=== PATIENT | female | born 1945 | race Caucasian/White ===

== ENCOUNTER → 2018-01-11 16:31 | Outpatient (CLI) | payer MEDICARE, SELFPAY ==
--- NOTE | 2018-01-11 16:37 | RAD_ITS ---
STUDY: X-RAY CHEST REASON FOR EXAM: Female, 72 years old. Cough, dyspnea. TECHNIQUE: PA and lateral views of the chest. COMPARISON: None. FINDINGS: The lungs are clear and expanded. There is no demonstrated pleural abnormality. Normal size heart. Normal mediastinum and fatou. Normal visualized pulmonary arteries. Normal visualized aortic arch and descending thoracic aorta. Normal visualized thoracic spine. Metal disc prostheses and fixation hardware noted along the anterior aspect of the visualized lower cervical spine. Normal visualized ribs, clavicles, and shoulders. There is a moderate size retrocardiac hiatal hernia with a gas fluid level. RAD/Chest PA and Lateral IMPRESSION: 1. No acute cardiopulmonary disease. 2. Moderate size hiatal hernia. 3. Prior lower cervical disc replacements and anterior spinal fusion with metal hardware. Electronically Signed: Emmanuel Betancourt MD at 13:22 EST , Service support ,
== END ==
PROVIDERS: Family Provider Internal Medicine; PCP Internal Medicine; Referring Provider Otolaryngology; Visit Provider Otolaryngology
DX: R05 Cough (principal); R06.09 Other forms of dyspnea
CPT/HCPCS: 71046

== ENCOUNTER → 2019-01-20 09:11 | Outpatient (CLI) | payer MEDICARE, SELFPAY ==
[2019-01-20 08:32] VITALS: BMI 24.7
--- NOTE | 2019-01-20 09:20 | RAD_ITS ---
STUDY: X-RAY CHEST REASON FOR EXAM: Female, 73 years old. Shortness of breath TECHNIQUE: PA and lateral views of the chest. COMPARISON: 01/11/2018 FINDINGS: Fusion hardware of the lower cervical spine stable. The lungs are clear and expanded. There is no demonstrated pleural abnormality. Normal size heart. Normal mediastinum and fatou. Normal visualized pulmonary arteries. Normal visualized aortic arch and descending thoracic aorta. There is demineralization of the osseous structures. Normal visualized ribs, clavicles, and shoulders. Hiatal hernia again noted. RAD/Chest PA and Lateral IMPRESSION: No acute cardiopulmonary process. Electronically Signed: Jack Castro MD (Brooks) at 14:29 EST , Service support ,
[2019-01-20 09:55] LABS: Absolute Lymphocyte Count 2.01 X10^3/uL (0.83-4.51); Absolute Neutrophil Count 4.1 X10^3/uL (2.0-7.7); Basophil# 0.09 X10^3/uL; Basophil% 1.3 % (0-1); Eosinophil# 0.23 X10^3/uL; Eosinophils% 3.2 % (0-5); Hemoglobin 13.7 g/dL (12.0-15.0); Lymphocyte # 2.01 X10^3/ul (4.0); Lymphocyte % 28.2 % (19-41); Mean Corp Hgb Conc 33.4 g/dL (32-36); Mean Corpuscular Hgb 29.5 pg (27.0-32.0); Mean Corpuscular Volume 88.4 fL (81-99); Mean Platelet Vol. 10.7 fl (6.2-12.0); Monocyte# 0.71 X10^3/uL; NRBC Flagged by Analyzer 0 % (0-5); Neutrophil # 4.08 X10^3/uL (2.7-7.7); Neutrophil % 57.2 % (47-70); Platelet Count 299 K/mm3 (150-450); RBC Distribution Width CV 13.6 % (11.6-14.6); RBC Distribution Width SD 43.7 fl (35.1-43.9); Red Blood Count 4.64 M/mm3 (4.2-5.4); White Blood Count 7.1 K/mm3 (4.4-11.0)
[2019-01-20 10:20] LABS: BNP,B-Type NATRIURETIC PEPTIDE 65.1 pg/mL (0-100)
[2019-01-20 10:37] LABS: Anion Gap 6 (5-15); BUN 18 mg/dL (7-18); BUN/Creat Ratio 19.4 RATIO (10-20); Calcium,Total 9.1 mg/dL (8.5-10.1); Chloride 107 mmol/L (98-107); Creatinine, Serum 0.93 mg/dL (0.55-1.02); EST Glomerular Filtration Rate 64 mL/min (>60); Est Glom Filt Rate - Afr Amer 77 mL/min (>60); Glucose 93 mg/dL (74-106); Potassium 3.9 mmol/L (3.5-5.1); Sodium Level 141 mmol/L (136-145); Thyroid Stim Hormone (TSH) 1.75 uIU/mL (0.358-3.74)
== END ==
PROVIDERS: Family Provider Internal Medicine; PCP Internal Medicine; Referring Provider Physician Assistant Medical; Visit Provider Physician Assistant Medical
DX: R53.83 Other fatigue (principal); R06.02 Shortness of breath; I44.7 Left bundle-branch block, unspecified
CPT/HCPCS: 36415; 71046; 80048; 83880; 84443; 85025

== ENCOUNTER → 2019-02-15 06:46 | Outpatient (CLI) | payer MEDICARE, SELFPAY ==
[2019-01-20 08:32] VITALS: BMI 24.7
--- NOTE | 2019-02-15 06:47 | ECHOCS_ITS ---
Reason For Study: Dyspnea/SOB Procedure This was a 2D Doppler, Color Flow transthoracic echocardiogram. The study was technically difficult. Contrast injection was performed. Exam performed in department. Left Ventricle Normal LV size. Mid cavitary false tendon noted. Moderate segmental systolic dysfunction (see wall motion). The estimated ejection fraction is 40 %. Diastolic function is indeterminate. Infero-Basal: Hypokinetic. Basal inferoseptal: Hypokinetic. Basal anteroseptal: Hypokinetic. Mid-Anterior : Hypokinetic. Mid-Lateral : Hypokinetic. Mid-Posterior: Hypokinetic. Mid-Inferior: Hypokinetic. Mid- inferoseptal : Hypokinetic. Mid-anteroseptal : Hypokinetic. [place] : Hypokinetic. Right Ventricle Normal RV size. Normal systolic function. Atria The left atrium is mildly enlarged. Normal right atrium. No doppler evidence for ASD. Bubble contrast study negative for right to left interatrial shunt. Mitral Valve There is no mitral annular calcification. Normal mitral valve. Trivial mitral valve insufficiency. Tricuspid Valve Normal tricuspid valve. Trivial tricuspid valve insufficiency. Right ventricular systolic pressure estimated to be 28 mmHg. Aortic Valve Trisinus/trileaflet aortic valve. Normal aortic valve. Trivial aortic valve insufficiency. Pulmonic Valve The pulmonic valve is not well visualized. Trivial pulmonic valve insufficiency. Great Vessels Normal sized aortic root. Pericardium/Pleural No pericardial effusion. Medication Diluted definity 5ml given slow IV push to enhance endocardial definition. MMode/2D Measurements & Calculations LVIDd: 4.9 cm IVSd: 1.1 cm Ao root diam: 2.9 cm LVIDs: 4.0 cm LVPWd: 0.81 cm RVDd: 2.9 cm FS: 19.9 % LAV(MOD-bp): 38.7 ml LVAd ap4: 32.3 cm2 SV(MOD-sp4): 47.2 ml LAV(MOD-bp) Indexed: 21.7 ml/m2 EDV(MOD-sp4): 109.1 ml LAV(MOD-sp2): 48.6 ml EDV(sp4-el): 113.2 ml LAV(MOD-sp4): 25.5 ml LVAs ap4: 22.4 cm2 ESV(MOD-sp4): 61.9 ml ESV(sp4-el): 64.5 ml EF(MOD-sp4): 43.3 % EF(sp4-el): 43.0 % SV(sp4-el): 48.7 ml LA A4 area: 11.1 cm2 LA dimension(2D): 3.9 cm RA A4 area: 10.6 cm2 Doppler Measurements & Calculations MV E max jeramie: 53.4 cm/sec Lat Peak E' Jeramie: 3.7 cm/sec Med Peak E' Jer[place]ie: 2.8 cm/sec MV A max jeramie: 104.1 cm/sec E/E' lat: 14.3 E/E' med: 19.2 MV E/A: 0.51 Ao V2 max: 129.4 cm/sec LV V1 max: 85.3 cm/sec PA V2 max: 105.9 cm/sec Ao max P.7 mmHg LV V1 max P.9 mmHg Ao V2 mean: 91.0 cm/sec Ao mean P.7 mmHg Ao V2 VTI: 24.3 cm PI end-d jeramie: 80.9 cm/sec TR max jeramie: 251.8 cm/sec TR max P.4 mmHg Interpretation Summary The study was technically difficult. Contrast injection was performed. Moderate segmental systolic dysfunction (see wall motion). The estimated ejection fraction is 40 %. Mid cavitary false tendon noted. The left atrium is mildly enlarged. Trivial mitral valve insufficiency. Trivial tricuspid valve insufficiency. Trivial aortic valve insufficiency. Trivial pulmonic valve insufficiency. Right ventricular systolic pressure estimated to be 28 mmHg. Diastolic function is indeterminate. Bubble contrast study negative for right to left interatrial shunt. Ordering Physician: Deidra Cedillo Referring Physician: Jessica Forrest Performed By: Sharee Garibay RDCS, RVT
--- NOTE | 2019-02-15 09:26 | STRESSREP ---
Stress Test Report Date: ? Procedure: Pharmacologic stress nuclear imaging study Indications: Shortness of breath/dyspnea; abnormal ECG-left bundle branch block Consent: Per the patient Procedure: The patient underwent pharmacologic (Regadenoson) evaluation with a peak heart rate of 94 beats per minute (63 %predicted maximal heart rate) and a peak blood pressure of 138/80 mmHg. The baseline ECG demonstrated normal sinus rhythm; left bundle branch block. The peak pharmacologic ECG demonstrated no obvious ECG changes. [There were no cardiac dysrhythmias pretest, during pharmacologic infusion, or recovery]. [There was no complaint of chest discomfort during pharmacologic infusion or recovery]. The examination was discontinued secondary to completion of protocol. Impression: 1. Pharmacologic (Regadenoson) evaluation 2. Peak pharmacologic ECG with continued left bundle branch block with no obvious ECG changes. 3. [There were no cardiac dysrhythmias pretest, during pharmacologic infusion, or recovery]. 4. Nuclear images pending Myocardial perfusion imaging study: Technique: The patient was injected with 10.0 millicuries of technetium 99m Cardiolite and subsequently rest SPECT Cardiolite nuclear imaging was obtained in the horizontal long, vertical long, and short axis views. The patient underwent pharmacologic (Regadenoson) evaluation with a peak heart rate of 94 beats per minute (63 % percent predicted maximal heart rate) and a peak blood pressure of 138/80 mmHg. The patient was injected with 35.0 millicuries of technetium 99m Cardiolite and subsequently stress SPECT Cardiolite nuclear imaging was obtained in the horizontal long, vertical long, and short axis views. A gated Cardiolite study at peak stress was not obtained. Interpretation: Rest and stress SPECT Cardiolite nuclear imaging status post realignment and normalization demonstrate an area of diminished tracer uptake in portions of the distal anterior, anteroapical, distal anteroseptal, and septal apical segments which appear to be more prominent following stress as opposed to rest. A gated Cardiolite study at peak stress was not obtained. Impression: 1. Rest and stress SPECT Cardiolite nuclear imaging demonstrate myocardial perfusion changes potentially compatible with an area of stress-induced myocardial ischemia involving portions of the distal anterior, anteroapical, distal anteroseptal, and septal apical segments, however, an element of contribution from the patient's underlying IVCD/left bundle branch block pattern cannot be excluded. 2. A gated Cardiolite study at peak stress was not obtained. This note was generated with [employer] software. It may contain incorrect words, spelling, and punctuation that were not noted in checking the note before signing.
== END ==
PROVIDERS: Family Provider Internal Medicine; PCP Internal Medicine; Referring Provider Physician Assistant Medical; Visit Provider Physician Assistant Medical
DX: R06.02 Shortness of breath (principal); R53.83 Other fatigue; I44.7 Left bundle-branch block, unspecified
CPT/HCPCS: 78452; 93017; 93306; A9500; Q9957; A4216; C8929; J2785

== ENCOUNTER 2019-02-21 11:16 | Inpatient (IN) | payer MEDICARE, SELFPAY ==
[2019-01-20 08:32] VITALS: BMI 24.7
[2019-02-21] VITALS (12 sets, daily range): BP systolic 131–171; BP diastolic 63–89; PULSE 73–95; RESP 10–16; TEMP 36.7–36.9; O2SAT 95–98; BMI 24.5; BMI 24.0; BMI 24.1
--- NOTE | 2019-02-21 11:21 | RAD_ITS ---
STUDY: X-RAY CHEST REASON FOR EXAM: Female, 73 years old. discomfort in left chest that radiates to her neck. hx of BBB TECHNIQUE: Single AP portable view of the chest. COMPARISON: 01/20/2019 FINDINGS: The lungs are clear and expanded. There is no demonstrated pleural abnormality. Normal size heart. Large hiatal hernia. Normal visualized pulmonary arteries. Normal visualized aortic arch and descending thoracic aorta. Normal visualized thoracic spine. Normal visualized ribs, clavicles, and shoulders. There is no demonstrated abnormality of the visualized soft tissue structures of the upper abdomen. RAD/Chest 1 View (Portable) IMPRESSION: No active disease. Electronically Signed: Anthony Grajeda MD at 12:04 EST Tel , Service support ,
--- NOTE | 2019-02-21 11:21 | EKG12_ITS ---
Test Reason : Blood Pressure : / mmHG Vent. Rate : 070 BPM Atrial Rate : 070 BPM P-R Int : 152 ms QRS Dur : 156 ms QT Int : 448 ms P-R-T Axes : 059 -36 108 degrees QTc Int : 483 ms Normal sinus rhythm Left axis deviation Left bundle branch block Abnormal ECG No previous ECGs available Confirmed by MERLENE BROWN, BENNY ([id number]), movie editor TERESO MISHRA ([id number]) on 02/24/2019 10:55:23 AM Referred By: Maxwell Montes Confirmed By:RENEE BLUNT MD
[2019-02-21 11:38] LABS: Absolute Lymphocyte Count 1.56 X10^3/uL (0.83-4.51); Absolute Neutrophil Count 3.9 X10^3/uL (2.0-7.7); Basophil# 0.06 X10^3/uL; Eosinophil# 0.09 X10^3/uL; Eosinophils% 1.5 % (0-5); Hematocrit 40.9 % (37-47); Hemoglobin 13.6 g/dL (12.0-15.0); Lymphocyte # 1.56 X10^3/ul (4.0); Lymphocyte % 25.7 % (19-41); Mean Corp Hgb Conc 33.3 g/dL (32-36); Mean Corpuscular Hgb 29.4 pg (27.0-32.0); Mean Corpuscular Volume 88.5 fL (81-99); Mean Platelet Vol. 10.7 fl (6.2-12.0); Monocyte# 0.48 X10^3/uL; Monocyte% 7.9 % (0-10); NRBC Flagged by Analyzer 0 % (0-5); Neutrophil # 3.85 X10^3/uL (2.7-7.7); Neutrophil % 63.6 % (47-70); Platelet Count 260 K/mm3 (150-450); RBC Distribution Width CV 13.3 % (11.6-14.6); RBC Distribution Width SD 43.3 fl (35.1-43.9); Red Blood Count 4.62 M/mm3 (4.2-5.4); White Blood Count 6.1 K/mm3 (4.4-11.0)
--- NOTE | 2019-02-21 11:39 | ED.DCSUM_ITS ---
- ER Visit Summary Date of Service: 02/21/19 Chief Complaint: [Chest pain] History of Present Illness: The patient is a 73 F [presents the emergency department chest discomfort that she woke up with this morning around 7:30 AM. Patient describes a tightness across her shoulders and her chest. Patient feels short of breath with and got sweaty with it. Patient states that she has had similar discomfort off and on for several weeks and saw Dr. Gerald Colon as an outpatient and had a stress test that was equivocal and possibly abnormal. Patient is scheduled to have a heart catheterization March 10. Patient states that her symptoms are typically caused by activity and exertion. Patient has history of left bundle branch block. Patient currently rates her pain a 2 out of 10. In reviewing patient's stress test from 1217 showed that patient demonstrated myocardial perfusion changes potentially compatible with an area of stress-induced myocardial ischemia involving portions of the distal anterior, anterior apical and distal anterior septal and septal apical segments however an element of contribution from the patient's underlying IVCD/left bundle branch block pattern cannot be excluded.] Physical Examination: [HEENT-PERRLA, EOMI. Cranial nerves II through XII lee ann ssly intact. TMs clear. Mucous membranes moist. No adenopathy. Cardiovascular-regular rate and rhythm without murmur or ectopy Lungs-clear to auscultation, chest wall stable without crepitus or subcu emphysema Abdomen-normoactive bowel sounds, soft, nontender, no rebound or rigidity, no peritoneal signs. Extremities-intact ?4, normal range of motion, normal pulses, atraumatic] Test Results: [EKG obtained arrival shows sinus rhythm with ventricular rate of 89 bpm with a left bundle branch block. CBC with differential is normal. Chemistries normal. Troponin was less than 0.15. INR was 1.0. Chest x-ray showed nothing acute.] Emergency Department Course and Treatment: [Patient was given aspirin in the emergency department. I ordered sublingual nitroglycerin for her.] Treatment Plan: [Admit for further work-up and evaluation of her chest pain] Disposition: [Admit] Impression: [Chest pain-rule out acute coronary syndrome] This note was generated with [employer] software. It may contain incorrect words, spelling, and punctuation that were not noted in review of the chart prior to signing ED Disposition - Plan for ED Patient: Referrals: Jessica Forrest MD [Primary Care Provider] -
[2019-02-21 11:41] LABS: Prothrombin Time (Protime)PT. 12.5 SECONDS (11.7-14.9)
[2019-02-21 11:48] LABS: Anion Gap 5 (5-15); BUN 14 mg/dL (7-18); BUN/Creat Ratio 14.1 RATIO (10-20); Calcium,Total 9.3 mg/dL (8.5-10.1); Chloride 109 mmol/L (98-107); Creatinine, Serum 0.99 mg/dL (0.55-1.02); EST Glomerular Filtration Rate 59 mL/min (>60); Est Glom Filt Rate - Afr Amer 71 mL/min (>60); Estimated Creatinine Clearance 48.79 ml/min; Glucose 121 mg/dL (74-106); Sodium Level 142 mmol/L (136-145)
[2019-02-21] MEDS: Aspirin 81 MG TAB.CHEW 324 MG PO (12:09)
[2019-02-21] MEDS: 0.9% Normal Saline 1,000 ML 150 ML IV (12:10)
--- NOTE | 2019-02-21 12:46 | NURSING ---
DR DYE FOR DR HUNG
[2019-02-21] MEDS: Nitroglycerin SL (ED/IMG/CATH) 0.4 MG TABLET SUBLINGUAL (12:47)
--- NOTE | 2019-02-21 16:52 | HP.PCM_ITS ---
History of Present Illness Date of Admission: 02/21/19 Chief Complaint: Chest pain The patient is a 73 year old F with a PMH as below who presents to the hospital with chest pressure on her left chest and into her left shoulder that started around 730 this morning. She did become a little short of breath and had some diaphoresis with this. It was the same pressure that she had been having for several weeks. This caused her to go see her gaming cage cashier in the office and she had an echo as well as a stress test done last week. The echo demonstrated a moderate segmental systolic dysfunction with an EF of 40%, and the stress test demonstrated changes that could be compatible with an area of stress-induced myocardial ischemia in the distal anterior, anterior apical, and distal anterior septal as well as septal apical segments. In the ER an EKG was done which showed her chronic left bundle branch block and a normal troponin. Past Medical History Past Medical History (Chronic Problems): Chronic Problems (Last Updated 02/16/19 @ 17:09 by Deidra Patel) LBBB (left bundle branch block) (Chronic) Medical History: Medical History (Last Updated 02/16/19 @ 17:09 by Deidra Patel) Abnormal stress test (Acute) R94.39 LBBB (left bundle branch block) (Chronic) I44.7 Depression F32.9 Diverticulosis K57.90 DANUTA (obstructive sleep apnea) G47.33 Basal cell carcinoma C44.91 removal of basil cell carcinoma on head Allergies codeine Allergy (Intermediate, Verified 02/21/19 11:20) Itching, Hives atropine [From Urised] Allergy (Unknown, Verified 02/21/19 11:20) Unknown benzoic acid [From Urised] Allergy (Unknown, Verified 02/21/19 11:20) Unknown diclofenac [From Voltaren] Allergy (Unknown, Verified 02/21/19 11:20) Unknown hyoscyamine [From Urised] Allergy (Unknown, Verified 02/21/19 11:20) Unknown methenamine [From Urised] Allergy (Unknown, Verified 02/21/19 11:20) Unknown methylene blue [From Urised] Allergy (Unknown, Verified 02/21/19 11:20) Unknown salicylates [From Urised] Allergy (Unknown, Verified 02/21/19 11:20) Unknown sulfamethoxazole [From Septra] Allergy (Unknown, Verified 02/21/19 11:20) Unknown trimethoprim [From Septra] Allergy (Unknown, Verified 02/21/19 11:20) Unknown amoxicillin Adverse Reaction (Unknown, Verified 02/21/19 11:20) Unknown cephalexin [From Keflex] Adverse Reaction (Unknown, Verified 02/21/19 11:20) Unknown Penicillins Adverse Reaction (Unknown, Verified 02/21/19 11:20) Unknown Home Medications: Ambulatory Orders Medication Instructions Recorded albuterol sulfate 90 mcg/actuation 2 puff INHALATION Q4H PRN g 04/14/17 aerosol inhaler aspirin 81 mg tablet,delayed 81 mg PO QDAY tab 04/14/17 release cholecalciferol (vitamin D3) 50 2,000 unit PO QDAY cap 04/14/17 mcg (2,000 unit) capsule estradiol 1 g VAGINAL QWEEK g 04/14/17 fluoxetine 20 mg capsule 20 mg PO QDAY 04/14/17 benzonatate 100 mg capsule 100 mg PO QDAY PRN cap 04/15/17 fluticasone propionate 50 1 spray INTRANASAL QDAY PRN 04/15/17 mcg/actuation nasal spray,suspension levothyroxine 50 mcg tablet 50 mcg PO QDAY tab 04/15/17 meloxicam 15 mg tablet 15 mg PO QDAY PRN 04/15/17 omeprazole 20 mg capsule,delayed 20 mg PO QDAY 04/15/17 release loratadine 10 mg tablet 10 mg PO DAILY PRN 04/18/18 nabumetone 500 mg tablet 500 mg PO BID PRN 04/18/18 Carvedilol 3.125 mg PO BID 02/21/19 Surgical History: Surgical History (Last Reviewed 04/18/18 @ 10:28 by Deidra Patel) H/O arthroscopic knee surgery Z98.890 Rt History of carpal tunnel surgery Z92.89 History of cholecystectomy Z98.890, Z90.49 History of nasal surgery Z98.890 History of neck surgery Z98.890 History of oophorectomy History of total hysterectomy Z98.890, Z90.710 Hx of cataract surgery Z98.49 Smoking Status: Former smoker Tobacco Use: Cigarettes Alcohol: None Drugs: None Review of Systems Constitutional: Denies: Chills, Fever, Weight Change HEENT: Denies: Head Aches, Sinus Congestion, Sinus Drainage Cardiovascular: Reports: Chest Pressure, Chest Tightness. Denies: Chest Pain, Palpitations Respiratory: Denies: Cough, Shortness of breath at rest, Sputum production Gastrointestinal: Denies: Abdominal Pain, Nausea, Vomiting Genitourinary: Denies: Dysuria Musculoskeletal: Denies: Joint Pain, Joint Tenderness Skin: Denies: Rash, Wounds Neurological: Denies: Numbness, Tingling, Focal weakness Psychiatric: Denies: Anxiety, Depression Hematologic/ Lymphatic: Denies: Easy Bruising, Easy Bleeding VTE Information - Inpt Only VTE Present on Admission: No - Physical Exam Vitals/I&O's: Vital Signs Temp Pulse Resp BP Pulse Ox 98.1 F 73 16 171/70 H 97 02/21/19 13:23 02/21/19 14:57 02/21/19 13:23 02/21/19 13:23 02/21/19 13:23 Oxygen Flow Rate (L/min) 2 Oxygen Delivery Method Room Air Weight: 149 lb 4.047 oz Body Mass Index (BMI) 24.0 Intake and Output for Last 24 Hours 02/19/19 02/20/19 02/21/19 23:59 23:59 23:59 Intake Total 610 / 610 Balance 610 / 610 General: Alert, Oriented x3, Cooperative, No apparent distress HEENT: Atraumatic, PERRLA, EOMI, Normocephalic Oral: Moist Mucosa Neck: Supple, No JVD Lungs: Clear to auscultation, Normal air movement, No rhonchi, No wheeze, No rales Cardiovascular: Regular rate, Regular Rhythm, Normal S1, Normal S2, No murmurs Abdomen: Soft, Non Tender, Non-Distended, No Hepato-splenomegaly Extremities: No edema, Capillary Refill Less than 3 Seconds Skin: No rashes, No breakdown Neurological: Neuro grossly intact, Sensory exam intact to light touch and pain Psych/Mental Status: Normal Affect, Appropriate Laboratory Results 02/21/19 11:24: WBC 6.1, RBC 4.62, Hgb 13.6, Hct 40.9, MCV 88.5, MCH 29.4, MCHC 33.3, RDW Std Deviation 43.3, RDW Coeff of Susan 13.3, Plt Count 260, MPV 10.7, Immature Gran % (Auto) 0.300, Neut % (Auto) 63.6, Lymph % (Auto) 25.7, [place] % (Auto) 7.9, Eos % (Auto) 1.5, Baso % (Auto) 1.0, Absolute Neuts (auto) 3.9, Absolute Lymphs (auto) 1.56, Nucleated RBC % 0 02/21/19 11:24: PT 12.5, INR 1.0 02/21/19 11:24: Sodium 142, Potassium 4.0, Chloride 109 H, Carbon Dioxide 28.0, Anion Gap 5, BUN 14, Creatinine 0.99, Estim Creat Clear Calc 48.79, Est GFR (MDRD) Af Amer 71, Est GFR (MDRD) Non-Af 59 L, BUN/Creatinine Ratio 14.1, G lucose 121 H, Calcium 9.3, Troponin I < 0.015 02/21/19 14:40: Troponin I < 0.015 Current Medications Enoxaparin Sodium (Lovenox) 40 mg SC DAILY PETRA Nitroglycerin (Nitrostat) 0.4 mg SUBLINGUAL Q5M PRN PRN Reason: CARDIAC/CHEST PAIN Sodium Chloride () 10 - 40 ml IV UD PRN PRN Reason: SALINE FLUSH Assessment/Plan All Active Problems (Last Updated 02/16/19 @ 17:09 by Deidra Patel) Abnormal stress test (Acute) Fatigue (Acute) SOB (shortness of breath) (Acute) 1. Chest pain -She already has a cardiac cath scheduled for March 10 however because of the recurrence of her chest pain and her abnormal stress test as well as her abnormal echo last week, will keep here to have the cath done as an inpatient -Obtain serial troponins -Consult cardiology -Continue with her aspirin, Coreg 2. Hypothyroidism -Stable -Continue with home Synthroid 3. GERD -Stable -Continue with PPI 4. Anxiety/depression -Stable -Continue with home Prozac DVT: Lovenox Code Visit Inpatient E&M: 65321 Init Hosp L2
[2019-02-21] MEDS: Carvedilol 3.125 MG TABLET PO (21:36)
[2019-02-22] VITALS (9 sets, daily range): BP systolic 115–145; BP diastolic 61–71; PULSE 61–75; RESP 16–18; TEMP 36.7–37; O2SAT 95–98
[2019-02-22] MEDS: Loratadine 10 MG Tablet PO (03:46)
[2019-02-22] MEDS: Levothyroxine 50 MCG Tablet PO (05:28)
[2019-02-22 06:41] LABS: Absolute Lymphocyte Count 1.75 X10^3/uL (0.83-4.51); Absolute Neutrophil Count 3.6 X10^3/uL (2.0-7.7); Basophil# 0.08 X10^3/uL; Basophil% 1.3 % (0-1); Eosinophil# 0.15 X10^3/uL; Eosinophils% 2.5 % (0-5); Hemoglobin 13.3 g/dL (12.0-15.0); Lymphocyte # 1.75 X10^3/ul (4.0); Lymphocyte % 28.6 % (19-41); Mean Corp Hgb Conc 33.3 g/dL (32-36); Mean Corpuscular Hgb 29.6 pg (27.0-32.0); Mean Corpuscular Volume 89.1 fL (81-99); Mean Platelet Vol. 11.1 fl (6.2-12.0); Monocyte# 0.53 X10^3/uL; Monocyte% 8.7 % (0-10); NRBC Flagged by Analyzer 0 % (0-5); Neutrophil % 58.7 % (47-70); Platelet Count 243 K/mm3 (150-450); RBC Distribution Width CV 13.6 % (11.6-14.6); RBC Distribution Width SD 44.3 fl (35.1-43.9); Red Blood Count 4.49 M/mm3 (4.2-5.4); White Blood Count 6.1 K/mm3 (4.4-11.0)
[2019-02-22 07:03] LABS: Anion Gap 4 (5-15); BUN 13 mg/dL (7-18); BUN/Creat Ratio 14.9 RATIO (10-20); Calcium,Total 9.2 mg/dL (8.5-10.1); Chloride 110 mmol/L (98-107); Creatinine, Serum 0.87 mg/dL (0.55-1.02); EST Glomerular Filtration Rate 68 mL/min (>60); Est Glom Filt Rate - Afr Amer 82 mL/min (>60); Estimated Creatinine Clearance 55.52 ml/min; Glucose 88 mg/dL (74-106); Sodium Level 142 mmol/L (136-145)
--- NOTE | 2019-02-22 07:20 | CON.PCM_ITS ---
Reason for Consult Date of Consultation: 02/22/19 Reason for Consultation: Chest pain and abnormal stress test, abnormal echo History of Present Illness: The patient is a 73 year old F with a PMH as below who presents to the hospital with chest pressure on her left chest and into her left shoulder that started around 730 this morning. She did become a little short of breath and had some diaphoresis with this. It was the same pressure that she had been having for several weeks. This caused her to go see her configuration management specialist in the office and she had an echo as well as a stress test done last week. The echo demonstrated a moderate segmental systolic dysfunction with an EF of 40%, and the stress test demonstrated changes that could be compatible with an area of stress-induced myocardial ischemia in the distal anterior, anterior apical, and distal anterior septal as well as septal apical segments. In the ER an EKG was done which showed her chronic left bundle branch block and a normal troponin. Patient was scheduled for cardiac catheterization on March 10. She does not have any chest pain at this time. Troponin x3 has been negative. Review of systems: All systems reviewed. All else is negative except that in the HPI. ] Past Medical History Allergies/Adverse Reactions: Allergies codeine Allergy (Intermediate, Verified 02/21/19 11:20) Itching, Hives atropine [From Urised] Allergy (Unknown, Verified 02/21/19 11:20) Unknown benzoic acid [From Urised] Allergy (Unknown, Verified 02/21/19 11:20) Unknown diclofenac [From Voltaren] Allergy (Unknown, Verified 02/21/19 11:20) Unknown hyoscyamine [From Urised] Allergy (Unknown, Verified 02/21/19 11:20) Unknown methenamine [From Urised] Allergy (Unknown, Verified 02/21/19 11:20) Unknown methylene blue [From Urised] Allergy (Unknown, Verified 02/21/19 11:20) Unknown salicylates [From Urised] Allergy (Unknown, Verified 02/21/19 11:20) Unknown sulfamethoxazole [From Septra] Allergy (Unknown, Verified 02/21/19 11:20) Unknown trimethoprim [From Septra] Allergy (Unknown, Verified 02/21/19 11:20) Unknown amoxicillin Adverse Reaction (Unknown, Verified 02/21/19 11:20) Unknown cephalexin [From Keflex] Adverse Reaction (Unknown, Verified 02/21/19 11:20) Unknown Penicillins Adverse Reaction (Unknown, Verified 02/21/19 11:20) Unknown Home Medications: Ambulatory Orders Medication Instructions Recorded albuterol sulfate 90 mcg/actuation 2 puff INHALATION Q4H PRN g 04/14/17 aerosol inhaler aspirin 81 mg tablet,delayed 81 mg PO QDAY tab 04/14/17 release cholecalciferol (vitamin D3) 50 2,000 unit PO QDAY cap 04/14/17 mcg (2,000 unit) capsule estradiol 1 g VAGINAL QWEEK g 04/14/17 fluoxetine 20 mg capsule 20 mg PO QDAY 04/14/17 benzonatate 100 mg capsule 100 mg PO QDAY PRN cap 04/15/17 fluticasone propionate 50 1 spray INTRANASAL QDAY PRN 04/15/17 mcg/actuation nasal spray,suspension levothyroxine 50 mcg tablet 50 mcg PO QDAY tab 04/15/17 meloxicam 15 mg tablet 15 mg PO QDAY PRN 04/15/17 omeprazole 20 mg capsule,delayed 20 mg PO QDAY 04/15/17 release loratadine 10 mg tablet 10 mg PO DAILY PRN 04/18/18 nabumetone 500 mg tablet 500 mg PO BID PRN 04/18/18 Carvedilol 3.125 mg PO BID 02/21/19 Past Medical History (Chronic Problems): Chronic Problems (Last Updated 02/16/19 @ 17:09 by Deidra Patel) LBBB (left bundle branch block) (Chronic) Smoking Status: Former smoker Tobacco Use: Cigarettes Alcohol: None Drugs: None Objective: Vital Signs Temp Pulse Resp BP Pulse Ox 98.5 F 71 18 145/71 H 95 02/22/19 03:30 02/22/19 07:00 02/22/19 03:30 02/22/19 03:30 02/22/19 03:30 Oxygen Flow Rate (L/min) 2 Oxygen Delivery Method Room Air Weight: 149 lb 4.047 oz Body Mass Index (BMI) 24.0 Intake and Output for Last 24 Hours 02/20/19 02/21/19 02/22/19 23:59 23:59 23:59 Intake Total 1070 / 1070 100 / 100 Balance 1070 / 1070 100 / 100 General: Awake, Alert, Oriented x 3 HEENT: Atraumatic Oral: Moist Mucosa Neck: Supple Lungs: Clear to auscultation Cardiovascular: Normal S1, Normal S2 Abdomen: Soft Extremities: No edema Skin: No Rashes Psych/Mental Status: Appropriate 02/21/19 11:24: WBC 6.1, RBC 4.62, Hgb 13.6, Hct 40.9, MCV 88.5, MCH 29.4, MCHC 33.3, Plt Count 260, MPV 10.7, Immature Gran % (Auto) 0.300, Neut % (Auto) 63.6, Lymph % (Auto) 25.7, [place] % (Auto) 7.9, Eos % (Auto) 1.5, Baso % (Auto) 1.0, Absolute Neuts (auto) 3.9, Nucleated RBC % 0 02/21/19 11:24: PT 12.5, INR 1.0 02/21/19 11:24: Sodium 142, Potassium 4.0, Chloride 109 H, Carbon Dioxide 28.0, Anion Gap 5, BUN 14, Creatinine 0.99, Est GFR (MDRD) Af Amer 71, Est GFR (MDRD) Non-Af 59 L, BUN/Creatinine Ratio 14.1, Glucose 121 H, Calcium 9.3, Troponin I < 0.015 02/21/19 14:40: Troponin I < 0.015 02/21/19 18:24: Troponin I < 0.015 02/22/19 05:33: WBC 6.1, RBC 4.49, Hgb 13.3, Hct 40.0, MCV 89.1, MCH 29.6, MCHC 33.3, Plt Count 243, MPV 11.1, Immature Gran % (Auto) 0.200, Neut % (Auto) 58.7, Lymph % (Auto) 28.6, [place] % (Auto) 8.7, Eos % (Auto) 2.5, Baso % (Auto) 1.3 H, Absolute Neuts (auto) 3.6, Nucleated RBC % 0 02/22/19 05:33: Sodium 142, Potassium 4.0, Chloride 110 H, Carbon Dioxide 28.0, Anion Gap 4 L, BUN 13, Creatinine 0.87, Est GFR (MDRD) Af Amer 82, Est GFR (MDRD) Non-Af 68, BUN/Creatinine Ratio 14.9, Glucose 88, Calcium 9.2 Rhythm: EKG: ECHO: Stress Test: Cardiac Cath: PCI: CT Surgery: Holter monitor: EPS: PPM: CXR: Chest CT Scan: Assessment/Plan 1. Chest pain: Patient had an abnormal stress test and low EF on the echo. She was originally scheduled for cardiac cath on March 10. However since she has presented with chest pain I think it will be reasonable to proceed with coronary angiography as an inpatient. It will be reasonable to also start the patient on TERESE inhibitor and statin. 2. LV dysfunction: Patient does not appear to be volume overloaded at this time. It will be reasonable to continue the Coreg and start lisinopril.
[2019-02-22] MEDS: FLUoxetine 20 MG Capsule PO (08:49)
[2019-02-22] MEDS: Carvedilol 3.125 MG TABLET PO ×2 (08:50→21:07)
[2019-02-22] MEDS: Aspirin E.C. 81 MG Tablet PO (08:50)
[2019-02-22] MEDS: Pantoprazole Sodium 20 MG Tablet PO (08:50)
[2019-02-22] MEDS: Lisinopril 5 MG Tablet PO (08:54)
[2019-02-22] MEDS: Enoxaparin 40 MG/0.4 ML Syringe SC (08:55)
--- NOTE | 2019-02-22 10:45 | PCM.PN.HOSP ---
Subjective: Feels back to baseline, chest tightness has resolved. No issues overnight Vitals/I&O's: Vital Signs Temp Pulse Resp BP Pulse Ox 98.6 F 75 16 126/61 H 96 02/22/19 08:46 02/22/19 08:46 02/22/19 08:46 02/22/19 08:46 02/22/19 08:46 Oxygen Flow Rate (L/min) 2 Oxygen Delivery Method Room Air Weight: 149 lb 4.047 oz Body Mass Index (BMI) 24.0 Intake and Output for Last 24 Hours 02/20/19 02/21/19 02/22/19 23:59 23:59 23:59 Intake Total 1070 / 1070 100 / 100 Balance 1070 / 1070 100 / 100 General: Alert, Oriented x3, Cooperative, No apparent distress HEENT: Atraumatic, PERRLA, EOMI, Normocephalic Oral: Moist Mucosa Neck: Supple, No JVD Lungs: Clear to auscultation, Normal air movement, No rhonchi, No wheeze, No rales Cardiovascular: Regular rate, Regular Rhythm, Normal S1, Normal S2, No murmurs Abdomen: Soft, Non Tender, Non-Distended, No Hepato-splenomegaly Extremities: No edema, Capillary Refill Less than 3 Seconds Skin: No rashes, No breakdown Neurological: Neuro grossly intact, Sensory exam intact to light touch and pain Psych/Mental Status: Normal Affect, Appropriate Laboratory Results 02/21/19 11:24: WBC 6.1, RBC 4.62, Hgb 13.6, Hct 40.9, MCV 88.5, MCH 29.4, MCHC 33.3, RDW Std Deviation 43.3, RDW Coeff of Susan 13.3, Plt Count 260, MPV 10.7, Immature Gran % (Auto) 0.300, Neut % (Auto) 63.6, Lymph % (Auto) 25.7, [place] % (Auto) 7.9, Eos % (Auto) 1.5, Baso % (Auto) 1.0, Absolute Neuts (auto) 3.9, Absolute Lymphs (auto) 1.56, Nucleated RBC % 0 02/21/19 11:24: PT 12.5, INR 1.0 02/21/19 11:24: Sodium 142, Potassium 4.0, Chloride 109 H, Carbon Dioxide 28.0, Anion Gap 5, BUN 14, Creatinine 0.99, Estim Creat Clear Calc 48.79, Est GFR (MDRD) Af Amer 71, Est GFR (MDRD) Non-Af 59 L, BUN/Creatinine Ratio 14.1, Glucose 121 H, Calcium 9.3, Troponin I < 0.015 02/21/19 14:40: Troponin I < 0.015 02/21/19 18:24: Troponin I < 0.015 02/22/19 05:33: WBC 6.1, RBC 4.49, Hgb 13.3, Hct 40.0, MCV 89.1, MCH 29.6, MCHC 33.3, RDW Std Deviation 44.3 H, RDW Coeff of Susan 13.6, Plt Count 243, MPV 11.1, Immature Gran % (Auto) 0.200, Neut % (Auto) 58.7, Lymph % (Auto) 28.6, [place] % (Auto) 8.7, Eos % (Auto) 2.5, Baso % (Auto) 1.3 H, Absolute Neuts (auto) 3.6, Absolute Lymphs (auto) 1.75, Nucleated RBC % 0 02/22/19 05:33: Sodium 142, Potassium 4.0, Chloride 110 H, Carbon Dioxide 28.0, Anion Gap 4 L, BUN 13, Creatinine 0.87, Estim Creat Clear Calc 55.52, Est GFR (MDRD) Af Amer 82, Est GFR (MDRD) Non-Af 68, BUN/Creatinine Ratio 14.9, Glucose 88, Calcium 9.2 Current Medications Albuterol Sulfate (Ventolin Aerosols) 2.5 mg INHALATION Q4H PRN PRN PRN Reason: SOB/WHEEZING Aspirin (Ecotrin) 81 mg PO DAILY@0800 [facility] Last Admin: 02/22/19 08:50 Dose: 81 mg Documented by: Atorvastatin Calcium (Lipitor) 40 mg PO QHS [facility] Benzonatate (Tessalon Perle) 100 mg PO DAILY PRN PRN PRN Reason: COUGH Carvedilol (Coreg) 3.125 mg PO BID [facility] Last Admin: 02/22/19 08:50 Dose: 3.125 mg Documented by: Cholecalciferol (Vitamin D) 2,000 unit PO DAILY [facility] Last Admin: 02/22/19 08:49 Dose: 2,000 unit Documented by: Enoxaparin Sodium (Lovenox) 40 mg SC DAILY [facility] Last Admin: 02/22/19 08:55 Dose: 40 mg Documented by: Fluoxetine HCl (Prozac) 20 mg PO DAILY [facility] Last Admin: 02/22/19 08:49 Dose: 20 mg Documented by: Sodium Chloride () 1,000 mls @ 15 mls/hr IV .Q48H [facility] Levothyroxine Sodium (Synthroid) 50 mcg PO DAILY@0600 [facility] Last Admin: 02/22/19 05:28 Dose: 50 mcg Documented by: Lisinopril (Zestril) 5 mg PO DAILY [facility] Last Admin: 02/22/19 08:54 Dose: 5 mg Documented by: Loratadine (Claritin) 10 mg PO DAILY PRN PRN PRN Reason: ALLERGIES Last Admin: 02/22/19 03:46 Dose: 10 mg Documented by: Nitroglycerin (Nitrostat) 0.4 mg SUBLINGUAL Q5M PRN PRN Reason: CARDIAC/CHEST PAIN Pantoprazole Sodium (Protonix) 20 mg PO DAILY [facility] Last Admin: 02/22/19 08:50 Dose: 20 mg Documented by: Sodium Chloride () 10 - 40 ml IV UD PRN PRN Reason: SALINE FLUSH STROKE Vital Signs/Narrative: Vital Signs Temp Pulse Resp BP Pulse Ox 02/22/19 08:46 98.6 F 75 16 126/61 H 96 02/22/19 07:00 73 Medical Necessity - Tobacco Use Smoking Status: Former smoker Tobacco Use: Cigarettes Assessment/Plan All Active Problems (Last Updated 02/16/19 @ 17:09 by Deidra Patel) Abnormal stress test (Acute) Fatigue (Acute) SOB (shortness of breath) (Acute) 1. Chest pain -She already has a cardiac cath scheduled for March 10 however because of the recurrence of her chest pain and her abnormal stress test as well as her abnormal echo last week, will keep here to have the cath done as an inpatient -Serial troponins are normal -Appreciate cardiology recommendations -Continue with her aspirin, Coreg and continue lisinopril 2. Hypothyroidism -Stable -Continue with home Synthroid 3. GERD -Stable -Continue with PPI 4. Anxiety/depression -Stable -Continue with home Prozac DVT: Lovenox Code Visit Inpatient E&M: 77098 Subs Hosp L2
[2019-02-22] MEDS: Acetaminophen 325 MG Tablet 650 MG PO (18:30)
[2019-02-22] MEDS: Atorvastatin Calcium 40 MG Tablet PO (21:07)
[2019-02-23] VITALS (12 sets, daily range): BP systolic 104–123; BP diastolic 46–59; PULSE 53–66; RESP 14–18; TEMP 36.6–36.9; O2SAT 94–98
--- NOTE | 2019-02-23 05:55 | EKG12_ITS ---
Test Reason : AM EKG Blood Pressure : / mmHG Vent. Rate : 060 BPM Atrial Rate : 060 BPM P-R Int : 158 ms QRS Dur : 154 ms QT Int : 484 ms P-R-T Axes : 067 -34 112 degrees QTc Int : 484 ms Normal sinus rhythm Left axis deviation Left bundle branch block Abnormal ECG When compared with ECG of 21-FEB-2019 11:19, MANUAL COMPARISON REQUIRED, DATA IS UNCONFIRMED Confirmed by MERLENE BROWN, BENNY ([id number]), commissioning editor TERESO MISHRA ([id number]) on 02/24/2019 10:41:31 AM Referred By: Maxwell Montes Confirmed By:RENEE BLUNT MD
[2019-02-23] MEDS: Carvedilol 3.125 MG TABLET PO (06:03)
[2019-02-23] MEDS: Levothyroxine 50 MCG Tablet PO (06:03)
[2019-02-23] MEDS: Lisinopril 5 MG Tablet PO (06:03)
[2019-02-23] MEDS: Aspirin E.C. 81 MG Tablet PO (06:03)
[2019-02-23] MEDS: Pantoprazole Sodium 20 MG Tablet PO (06:03)
--- NOTE | 2019-02-23 09:05 | CASEMGMT ---
According to the [employer] website, the following are in-network tertiary facilities: [facility], [place], [facility], [facility], [facility], [facility], and . Jesus NAIK CM
--- NOTE | 2019-02-23 09:48 | NURSING ---
Report given to Wilber mcdowell RN at [phone].
--- NOTE | 2019-02-23 10:52 | CASEMGMT ---
This RN CM to room to complete CM assessment and pt is out of the dept for heart cath at this time. This RN CM will attempt again later. SStgregory NAIK CM
[2019-02-23] MEDS: 0.9% Normal Saline 1,000 ML 125 ML IV (11:10)
--- NOTE | 2019-02-23 11:59 | CASEMGMT ---
GUMARO JARAMILLO assessment: Face to Face with patient for initial transition planning/care coordination assessment. GUMARO JARAMILLO introduced self and role at [facility], pt voices understanding and consents to assessment at this time. Pt is lying in bed in no distress at this time. Pt is A/Ox4 at this time and answers all questions appropriately at this time. Care providers, pharmacy, and demographics verified at this time. Presentation: Left chest discomfort that radiates to neck. Hx BBB Admitting dx: Chest pain PCP: Adriane Specialists: Darlene, cardio; Lorenzo [facility]NT Preferred Pharmacy: [facility] Insurance: [employer]R Prescription Benefit: [employer]R Living Will/HPOA: Pt states has LW/HPOA and is aware that they are not on file at [facility] at this time. Pt states that her daughter, Sheila Tejada, is HPOA. Pt encouraged to bring AD in when able, voice understanding. LNOK: Sheila Tejada, daughter Living Arrangements: Pt states lives alone in 2 story home and states no concerns at home at this time. Pt states is independent with ADL's. Transportation: Pt states drives self and states no transportation concerns at this time. DME/HHC: Pt states no current DME or need for any at this time. Pt states no hx of HHC or SNF in the past. Pt states no concerns with going home at time of discharge. Pt states is retired. Pt states does not smoke or drink ETOH. Pt states no further concerns/needs at this time. CM to follow for any further discharge planning/needs. Advised pt to ask for CM if any further questions/concerns/needs arise, voices understanding. Pt Goal: Home Plan: Home [place] GUMARO JARAMILLO
[2019-02-23] MEDS: FLUoxetine 20 MG Capsule PO (12:02)
--- NOTE | 2019-02-23 13:22 | DCINST_ITS ---
You will use the following diet at home:: Cardiac Your food should be the consistency of: Regular Your liquids should be the consistency of: Regular/Thin Call your doctor if you observe: Shortness of breath, Chest pain Allergies/Adverse Reactions: Allergies codeine Allergy (Intermediate, Verified 02/21/19 11:20) Itching, Hives atropine [From Urised] Allergy (Unknown, Verified 02/21/19 11:20) Unknown benzoic acid [From Urised] Allergy (Unknown, Verified 02/21/19 11:20) Unknown diclofenac [From Voltaren] Allergy (Unknown, Verified 02/21/19 11:20) Unknown hyoscyamine [From Urised] Allergy (Unknown, Verified 02/21/19 11:20) Unknown methenamine [From Urised] Allergy (Unknown, Verified 02/21/19 11:20) Unknown methylene blue [From Urised] Allergy (Unknown, Verified 02/21/19 11:20) Unknown salicylates [From Urised] Allergy (Unknown, Verified 02/21/19 11:20) Unknown sulfamethoxazole [From Septra] Allergy (Unknown, Verified 02/21/19 11:20) Unknown trimethoprim [From Septra] Allergy (Unknown, Verified 02/21/19 11:20) Unknown amoxicillin Adverse Reaction (Unknown, Verified 02/21/19 11:20) Unknown cephalexin [From Keflex] Adverse Reaction (Unknown, Verified 02/21/19 11:20) Unknown Penicillins Adverse Reaction (Unknown, Verified 02/21/19 11:20) Unknown Medications to take at Discharge albuterol sulfate 90 mcg/actuation aerosol inhaler 2 puff INHALATION Q4H PRN g 04/14/17 aspirin 81 mg tablet,delayed release 81 mg PO QDAY tab 04/14/17 cholecalciferol (vitamin D3) 50 mcg (2,000 unit) capsule 2,000 unit PO QDAY cap 04/14/17 estradiol 1 g VAGINAL QWEEK g 04/14/17 fluoxetine 20 mg capsule 20 mg PO QDAY 04/14/17 benzonatate 100 mg capsule 100 mg PO QDAY PRN cap 04/15/17 fluticasone propionate 50 mcg/actuation nasal spray,suspension 1 spray INTRANASAL QDAY PRN 04/15/17 levothyroxine 50 mcg tablet 50 mcg PO QDAY tab 04/15/17 meloxicam 15 mg tablet 15 mg PO QDAY PRN 04/15/17 omeprazole 20 mg capsule,delayed release 20 mg PO QDAY 04/15/17 loratadine 10 mg tablet 10 mg PO DAILY PRN 04/18/18 nabumetone 500 mg tablet 500 mg PO BID PRN 04/18/18 Carvedilol 3.125 mg PO BID 02/21/19 Lisinopril [Zestril] 5 mg PO DAILY #30 tab 02/23/19 The following prescriptions were given: Lisinopril [Zestril] 5 mg PO DAILY #30 tab Transmission Status: Pending to [id number] Primary Care Physician: Jessica Forrest MD [Primary Care Provider] - Within 2 Weeks Test Results: Test results from this visit will be discussed in further detail at your follow- up appointment, if applicable. Please Follow Up With: Gerald Colon MD When: 2-4 weeks Proposed Discharge Date: 02/23/19
--- NOTE | 2019-02-23 13:24 | PCM.DC.SUM ---
Discharge Date and Diagnosis Date of Admission: 02/21/19 Date of Discharge: 02/23/19 - Primary Discharge Diagnosis Chest pain. Cardiomyopathy - Secondary Discharge Diagnosis Chronic Problems (Last Updated 02/16/19 @ 17:09 by Deidra Patel) LBBB (left bundle branch block) (Chronic) Hospital Course and Treatment Imaging Results: Clinical Impression(s) from Imaging Studies Chest X-Ray 02/21/19 11:21 IMPRESSION: No active disease. Electronically Signed: Anthony Grajeda MD at 12:04 EST Tel , Service support , Manuel: cardiology Operations: None Procedures: 2-D Echocardiogram, Cardiac catheterization Summary of Care Provided: The patient is a 73 year old F presents with chest pain. She had undergone a stress test on the that showed myocardial perfusion changes potentially compatible with an area of stress-induced myocardial ischemia involving portions of the distal anterior, anterior apical, distal anterior septal, and septal apical segments. The plan was to have the patient undergo a left heart catheterization on 10 March. Patient continued to have symptoms and presented to the emergency room on the . Patient underwent additional work-up that was unremarkable. Patient had an echocardiogram as outpatient that showed an ejection fraction of 40%. Given the patient's ongoing symptoms patient was brought in and underwent a left heart catheterization today. Left heart catheterization showed no obstructive coronary artery disease. Patient would continue with her home medications but the lisinopril will be added. For the patient's cardiomyopathy patient will need follow-up with cardiology to see how that progresses over time. Back in 2016, patient had a stress echocardiogram that showed an EF of 62% at that time. [] Reached out to cardiology and Dr. Jackson, stated the patient could be discharged from cardiac standpoint. - Physical Exam Vitals/I&O's: Vital Signs Temp Pulse Resp BP Pulse Ox 36.8 C 66 16 108/51 L 95 02/23/19 12:55 02/23/19 12:55 02/23/19 12:55 02/23/19 12:55 02/23/19 12:55 Oxygen Flow Rate (L/min) 2 Oxygen Delivery Method Room Air Weight: 67.7 kg Body Mass Index (BMI) 24.0 Intake and Output for Last 24 Hours 02/21/19 02/22/19 02/23/19 23:59 23:59 23:59 Intake Total 1070 / 1070 460 / 460 0 / 0 Balance 1070 / 1070 460 / 460 0 / 0 General: Alert, Cooperative, No apparent distress HEENT: Atraumatic, Normocephalic Oral: Moist Mucosa, No Gingival or Mucosal Lesions/ Ulcerations Neck: No Nodes, Trachea Midline Lungs: Clear to auscultation, Normal air movement, No rhonchi, No wheeze Cardiovascular: Regular rate, Regular Rhythm, Normal S1, Normal S2 Abdomen: Bowel Sounds Present, Soft, Non Tender, Non-Distended Extremities: No edema, No Calf Tenderness Skin: No rashes, No breakdown Psych/Mental Status: Normal Affect, Appropriate Current Medications Acetaminophen (Tylenol) 650 mg PO Q6H PRN PRN PRN Reason: HEADACHE Last Admin: 02/22/19 18:30 Dose: 650 mg Documented by: Albuterol Sulfate (Ventolin Aerosols) 2.5 mg INHALATION Q4H PRN PRN PRN Reason: SOB/WHEEZING Aspirin (Ecotrin) 81 mg PO DAILY@0800 [facility] Last Admin: 02/23/19 06:03 Dose: 81 mg Documented by: Atorvastatin Calcium (Lipitor) 40 mg PO QHS [facility] Last Admin: 02/22/19 21:07 Dose: 40 mg Documented by: Benzonatate (Tessalon Perle) 100 mg PO DAILY PRN PRN PRN Reason: COUGH Carvedilol (Coreg) 3.125 mg PO BID [facility] Last Admin: 02/23/19 06:03 Dose: 3.125 mg Documented by: Cholecalciferol (Vitamin D) 2,000 unit PO DAILY [facility] Last Admin: 02/23/19 12:01 Dose: 2,000 unit Documented by: Enoxaparin Sodium (Lovenox) 40 mg SC DAILY [facility] Last Admin: 02/23/19 10:40 Dose: Not Given Documented by: Fluoxetine HCl (Prozac) 20 mg PO DAILY [facility] Last Admin: 02/23/19 12:02 Dose: 20 mg Documented by: Sodium Chloride () 1,000 mls @ 15 mls/hr IV .Q48H [facility] Last Admin: 02/23/19 11:06 Dose: Not Given Documented by: Sodium Chloride () 1,000 mls @ 125 mls/hr IV .Q8H [facility] Stop: 02/23/19 15:34 Last Admin: 02/23/19 11:10 Dose: 125 mls/hr Documented by: Levothyroxine Sodium (Synthroid) 50 mcg PO DAILY@0600 [facility] Last Admin: 02/23/19 06:03 Dose: 50 mcg Documented by: Lisinopril (Zestril) 5 mg PO DAILY [facility] Last Admin: 02/23/19 06:03 Dose: 5 mg Documented by: Loratadine (Claritin) 10 mg PO DAILY PRN PRN PRN Reason: ALLERGIES Last Admin: 02/22/19 03:46 Dose: 10 mg Documented by: Nitroglycerin (Nitrostat) 0.4 mg SUBLINGUAL Q5M PRN PRN Reason: CARDIAC/CHEST PAIN Pantoprazole Sodium (Protonix) 20 mg PO DAILY [facility] Last Admin: 02/23/19 06:03 Dose: 20 mg Documented by: Sodium Chloride () 10 - 40 ml IV UD PRN PRN Reason: SALINE FLUSH Discharge Diet: Low fat/ Low Cholesterol, 2000 mg Sodium Diet Discharge Activity: Return to Normal Activity Call your doctor if you observe: Shortness of breath, Chest pain Home Medications: Medications to take at Discharge albuterol sulfate 90 mcg/actuation aerosol inhaler 2 puff INHALATION Q4H PRN g 04/14/17 aspirin 81 mg tablet,delayed release 81 mg PO QDAY tab 04/14/17 cholecalciferol (vitamin D3) 50 mcg (2,000 unit) capsule 2,000 unit PO QDAY cap 04/14/17 estradiol 1 g VAGINAL QWEEK g 04/14/17 fluoxetine 20 mg capsule 20 mg PO QDAY 04/14/17 benzonatate 100 mg capsule 100 mg PO QDAY PRN cap 04/15/17 fluticasone propionate 50 mcg/actuation nasal spray,suspension 1 spray INTRANASAL QDAY PRN 04/15/17 levothyroxine 50 mcg tablet 50 mcg PO QDAY tab 04/15/17 meloxicam 15 mg tablet 15 mg PO QDAY PRN 04/15/17 omeprazole 20 mg capsule,delayed release 20 mg PO QDAY 04/15/17 loratadine 10 mg tablet 10 mg PO DAILY PRN 04/18/18 nabumetone 500 mg tablet 500 mg PO BID PRN 04/18/18 Carvedilol 3.125 mg PO BID 02/21/19 Lisinopril [Zestril] 5 mg PO DAILY #30 tab 02/23/19 Following Prescrptions Were Given to Patient: Lisinopril [Zestril] 5 mg PO DAILY #30 tab Transmission Status: Pending to [facility] [facility] Primary Care Physician: Jessica Forrest MD [Primary Care Provider] - Within 2 Weeks Please Follow Up With: Gerald Colon MD When: 2-4 weeks Disposition: Home Minutes spent on discharge:: 32 Patient Condition:: Good Medical Necessity - Tobacco Use Smoking Status: Former smoker Tobacco Use: Cigarettes Meaningful Use Info Meaningful Use Diagnoses (Choose all that apply): None applicable Code Visit Inpatient E&M: 28381 Disch Hosp
--- NOTE | 2019-02-23 15:28 | NURSING ---
Reviewed and agreed on all charting with Rose Rivas RN
--- NOTE | 2019-02-23 17:31 | CL.D_ITS ---
Patient Name: MARCELA MILLARD Study Date: 02/23/2019 Performing: David Jackson MD Ht: 66.14 inches 168 cm : 1945 Wt: 149.91 lbs 68 kg Age: 73 Gender: female BSA: 1.77 PROCEDURE(S) PERFORMED [id number]/LV CLINICAL PROFILE AND INDICATIONS Indications: ACS <= 24 hrs Heart Failure: None Stress/Imaging Stress Test w/SPECT MPI: Yes Result: Positive Intermediate RiskStress Test with SP ECT MPI: Positive Intermediate Risk CAD Presentations: Unstable angina. CONCLUSIONS Non obstructive coronary arteries. Preserved EF. No significant or MR RECOMMENDATIONS Medical Management for mild non obstructive CAD DESCRIPTION OF PROCEDURE The patient arrived to the procedure lab. The risks and benefits of the procedure as well as a full d escription of our services here and current unavailability of surgical backup were fully explained to the patient and/or their significant other prior to the catheterization. The Timeout was completed, verifying the correct patient and procedure. The patient's procedural site was prepped and draped in the usual fashion. Local anesthetic was given subcutaneously to left radial region with Lidocaine 2%. Using a modified Seldinger technique, arterial access was obtained via the right radial artery, a 6F r sheath was inserted. LV to AO pullback pressures were then recorded. Left Coronary Artery selectiv e angiography was performed in multiple views using a 5 Fr. JL3.5 catheter. Left Ventriculography was performed in AMATO projection using a 5 Fr JR4.. Right Coronary Artery selective angiography was then performed in multiple views using a 5 Fr. JR 4 catheter.The arterial sheath was pulled and a TR Band was applied for hemostasis CORONARY ANGIOGRAPHY DOMINANCE: Right Dominant LEFT HEART ASSESSMENT Left Ventricular Ejection Fraction: by LV Gram 55 % Normal LV wall motion LEFT MAIN: Mild luminal irregularities LEFT ANTERIOR DESCENDING ARTERY: Mild luminal irregularities CIRCUMFLEX ARTERY: MID CIRC: 30 % Stenosis RIGHT CORONARY ARTERY: Mild luminal irregularities VALVE FINDINGS: No Aortic Valve Stenosis No Mitral Insufficency COMPLICATIONS No Complications PROCEDURE MEDICATIONS Fentanyl 50 mcg IV Versed 1 mg IV Oxygen: 2 L/min via nasal cannula Heparin given IA 02/23/2019 10:31:07 Verapamil 2.5mg, Ntg 100mcgs, 3000 units of Heparin given IA 02/23/2019 10:31:07 IV Bolus: .9 NaCl 250 ml total 02/23/2019 10:34:06 SUMMARY OF HEMODYNAMIC DATA Time AIR REST ECG 10:01:08 LV 108/-7, 3 10:30:14 LV 110/-7, 4 10:30:21 LVp 83/-4, 2 10:30:34 AOp 97/53 (69) 10:30:39 AO 91/52 (66) SA 10:30:52 LVp 119/1, 6 10:36:09 AOp 121/50 (78) 10:36:14 Signed By David Jackson MD On 02/23/2019 5:30:22 PM David Jackson MD
== END 2019-02-23 15:22 | disposition home or self-care (01) | DRG 287 ==
LOC: ED 12:16 → PCU 12:58
PROVIDERS: Admitting Provider Family Medicine; Emergency Provider Emergency Medicine; Family Provider Internal Medicine; PCP Internal Medicine; Referring Provider Family Medicine
DX: R07.89 Other chest pain (principal); I42.9 Cardiomyopathy, unspecified; I25.10 Atherosclerotic heart disease of native coronary artery without angina pectoris; E03.9 Hypothyroidism, unspecified; K21.9 Gastro-esophageal reflux disease without esophagitis; F17.210 Nicotine dependence, cigarettes, uncomplicated; I44.7 Left bundle-branch block, unspecified; R94.39 Abnormal result of other cardiovascular function study; Z87.891 Personal history of nicotine dependence
CPT/HCPCS: 36415; 71045; 80048; 84484; 85025; 85610; 93005; 93458; 99152; 99153; 99285; J7030; Q9967; A4216; C1769; C1894

== ENCOUNTER → 2019-05-09 07:50 | Outpatient (CLI) | payer MEDICARE, SELFPAY ==
[2019-05-01 09:57] VITALS: BMI 24.5
--- NOTE | 2019-05-10 10:32 | PFT ---
INTRODUCTION: The patient is a 73-year-old female that presents for pulmonary function studies secondary to a diagnosis of shortness of breath. Respiratory therapy reports good patient effort. Bronchodilators were used during testing. INTERPRETATION: Forced expiration spirometry demonstrates no evidence of a large airways obstructive ventilatory defect. There was no significant response to aerosolized bronchodilators. Spirograms are of good quality and plateau normally. Body plethysmography was performed and revealed a mildly elevated total lung capacity. Diffusing capacity by single breath CO was within normal limits. IMPRESSION: Grossly normal pulmonary function studies.
== END ==
PROVIDERS: PCP Internal Medicine; Referring Provider Internal Medicine Cardiovascular Disease; Visit Provider Internal Medicine Cardiovascular Disease
DX: R06.02 Shortness of breath (principal)
CPT/HCPCS: 94060; 94726; 94729

== ENCOUNTER 2019-09-08 21:06 | Emergency (ER) | payer MEDICARE, SELFPAY ==
[2019-08-14 09:29] VITALS: BMI 25.0
[2019-09-08 21:07] VITALS: BP 168/110; PULSE 99; RESP 18; TEMP 36.3; O2SAT 98; BMI 24.7
[2019-09-08 21:22] VITALS: BP 147/79; PULSE 89; RESP 14; O2SAT 97
--- NOTE | 2019-09-08 21:35 | EKG12_ITS ---
Test Reason : HYPERTENSION Blood Pressure : / mmHG Vent. Rate : 080 BPM Atrial Rate : 080 BPM P-R Int : 166 ms QRS Dur : 160 ms QT Int : 418 ms P-R-T Axes : 059 -26 121 degrees QTc Int : 482 ms Normal sinus rhythm Left bundle branch block Abnormal ECG Confirmed by BRICE BROWN, LILIANA ([id number]), video tape editor HERON NARAYANAN ([id number]) on 09/11/2019 1:03:01 PM Referred By: Confirmed By:LILIANA NARVAEZ MD
--- NOTE | 2019-09-08 21:36 | ED.DCSUM_ITS ---
History of Present Illness Chief Complaint: Hypertension Informant: Patient Narrative: Patient presents the emergency department stating that for the past several days her blood pressures been elevated and she has generally not felt well. She notes some intermittent nausea some intermittent bilateral arm tingling pain up in her left trapezius that is sometimes there. She states she spoke to her overhead crane technician who recommended taking her blood pressure only twice a day and recording it and following up with him. She states that she had a heart catheterization in January that was normal. She denies any neurologic deficits. No fevers. No chest pain or shortness of breath. She states that she certainly has been more anxious than normal. Past Medical History - Allergies and Home Meds Allergies/Adverse Reactions: Allergies codeine Allergy (Intermediate, Verified 05/01/19 09:57) Itching, Hives atropine [From Urised] Allergy (Unknown, Verified 05/01/19 09:57) Unknown benzoic acid [From Urised] Allergy (Unknown, Verified 05/01/19 09:57) Unknown diclofenac [From Voltaren] Allergy (Unknown, Verified 05/01/19 09:57) Unknown hyoscyamine [From Urised] Allergy (Unknown, Verified 05/01/19 09:57) Unknown methenamine [From Urised] Allergy (Unknown, Verified 05/01/19 09:57) Unknown methylene blue [From Urised] Allergy (Unknown, Verified 05/01/19 09:57) Unknown salicylates [From Urised] Allergy (Unknown, Verified 05/01/19 09:57) Unknown sulfamethoxazole [From Septra] Allergy (Unknown, Verified 05/01/19 09:57) Unknown trimethoprim [From Septra] Allergy (Unknown, Verified 05/01/19 09:57) Unknown amoxicillin Adverse Reaction (Unknown, Verified 05/01/19 09:57) Unknown cephalexin [From Keflex] Adverse Reaction (Unknown, Verified 05/01/19 09:57) Unknown Penicillins Adverse Reaction (Unknown, Verified 05/01/19 09:57) Unknown Primary Care Physician: Jessica Forrest MD [Primary Care Provider] - Smoking Status: Former smoker Review of Systems General: Denies: Chills, Fever, Sweats Eyes: Denies: Visual changes - bilaterally, Diplopia ENT: Denies: Rhinorrhea, Sore throat Cardiovascular: Denies: Chest pain, Palpitations Respiratory: Denies: Dyspnea, Cough, Dyspnea on exertion Gastrointestinal: Reports: Nausea. Denies: Abdominal pain, Vomiting, Diarrhea, Melena, Hematochezia Genitourinary: Denies: Dysuria, Hematuria, Frequency Musculoskeletal: Reports: Neck pain. Denies: Back pain, Extremity Pain Skin: Denies: Rash, Wounds Neurological: Reports: Parasthesia. Denies: Headache, Weakness, Numbness Psych: Reports: Anxiety. Denies: Suicidal thoughts, Suicidal ideations Physical Exam Vital Signs/Narrative: Vital Signs Temp Pulse Resp BP Pulse Ox 09/08/19 21: 89 14 147/79 H 97 09/08/19 21:07 97.3 F L 99 18 168/110 H 98 Inital Vital Signs reviewed: Yes General: Well nourished, Well developed, No Acute Distress Head: Normocephalic, Atraumatic Eyes: Perrl, EOMI ENT: Moist mucous membranes, No rhinorrhea Neck: Supple, Nontender Cardiovascular: Regular rate, Regular rhythm, No murmurs Respiratory: No distress, CTA bilaterally, Chest nontender Abdomen: Soft, Nontender, Nondistended, Normal bowel sounds Back: Nontender, Normal Inspection Extremities: Nontender, No edema Skin: Normal color, No rash Neurological: Alert, Oriented x3, Cranial nerves II-XII grossly intact, Normal Strength, Normal Sensation Psychological: Normal affect, Normal Mood Diagnostic/Tx/Re-eval Laboratory Last Values WBC 9.4 K/mm3 (4.4-11.0) 09/08/19 21:15 RBC 4.52 M/mm3 (4.2-5.4) 09/08/19 21:15 Hgb 13.8 g/dL (12.0-15.0) 09/08/19 21:15 Hct 41.6 % (37-47) 09/08/19 21:15 MCV 92.0 fL (81-99) 09/08/19 21:15 MCH 30.5 pg (27.0-32.0) 09/08/19 21:15 MCHC 33.2 g/dL (32-36) 09/08/19 21:15 RDW Std Deviation 43.4 fl (35.1-43.9) 09/08/19 21:15 RDW Coeff of Susan 13.0 % (11.6-14.6) 09/08/19 21:15 Plt Count 324 K/mm3 (150-450) 09/08/19 21:15 MPV 10.8 fl (6.2-12.0) 09/08/19 21:15 Immature Gran % (Auto) 0.200 % (0.0-0.9) 09/08/19 21:15 Neut % (Auto) 51.6 % (47-70) 09/08/19 21:15 Lymph % (Auto) 35.2 % (19-41) 09/08/19 21:15 [place] % (Auto) 10.7 % (0-10) H 09/08/19 21:15 Eos % (Auto) 1.5 % (0-5) 09/08/19 21:15 Baso % (Auto) 0.8 % (0-1) 09/08/19 21:15 Absolute Neuts (auto) 4.9 X10^3/uL (2.0-7.7) 09/08/19 21:15 Absolute Lymphs (auto) 3.32 X10^3/uL (0.83-4.51) 09/08/19 21:15 Nucleated RBC % 0 % (0-5) 09/08/19 21:15 Sodium 143 mmol/L (136-145) 09/08/19 21:15 Potassium 3.5 mmol/L (3.5-5.1) 09/08/19 21:15 Chloride 108 mmol/L (98-107) H 09/08/19 21:15 Carbon Dioxide 28.0 mmol/L (21.0-32.0) 09/08/19 21:15 Anion Gap 7 (5-15) 09/08/19 21:15 BUN 17 mg/dL (7-18) 09/08/19 21:15 Creatinine 1.12 mg/dL (0.55-1.02) H 09/08/19 21:15 Estim Creat Clear Calc 43.13 ml/min 09/08/19 21:15 Est GFR (MDRD) Af Amer 62 mL/min (>60) 09/08/19 21:15 Est GFR (MDRD) Non-Af 51 mL/min (>60) L 09/08/19 21:15 BUN/Creatinine Ratio 15.2 RATIO (10-20) 09/08/19 21:15 Glucose 86 mg/dL (74-106) 09/08/19 21:15 Calcium 8.4 mg/dL (8.5-10.1) L 09/08/19 21:15 Total Bilirubin 0.30 mg/dL (0.20-1.00) 09/08/19 21:15 AST 15 U/L (15-37) 09/08/19 21:15 ALT 14 U/L (13-56) 09/08/19 21:15 Alkaline Phosphatase 88 U/L (45-117) 09/08/19 21:15 Troponin I < 0.015 ng/mL (<0.045) 09/08/19 21:15 Total Protein 7.7 g/dL (6.4-8.2) 09/08/19 21:15 Albumin 3.9 g/dL (3.2-5.0) 09/08/19 21:15 Globulin 3.8 g/dL (2.2-4.2) 09/08/19 21:15 Albumin/Globulin Ratio 1.0 RATIO (0.9-2.4) 09/08/19 21:15 Urine Color Yellow (Yellow) 09/08/19 21:50 Urine Clarity Sl. Cloudy (Clear) 09/08/19 21:50 Urine pH 6.0 (5.0 - 8.0) 09/08/19 21:50 Ur Specific [place] 1.020 (1.002-1.030) 09/08/19 21:50 Urine Protein 15 mg/dl (Negative) H 09/08/19 21:50 Urine Glucose (UA) Normal mg/dl (Normal) 09/08/19 21:50 Urine Ketones 5 mg/dl (Negative) H 09/08/19 21:50 Urine Occult Blood 50 /ul (Negative) H 09/08/19 21:50 Urine Nitrite Negative (Negative) 09/08/19 21:50 Urine Bilirubin Negative mg/dL (Negative) 09/08/19 21:50 Urine Urobilinogen Normal mg/dl (Normal) 09/08/19 21:50 Ur Leukocyte Esterase Negative /ul (Negative) 09/08/19 21:50 Urine RBC 5-10 SEEN /hpf (0-5) 09/08/19 21:50 Urine WBC 0 SEEN /hpf (0-5) 09/08/19 21:50 Ur Squamous Epith Cells 10-25 SEEN /hpf (5-10) 09/08/19 21:50 Amorphous Sediment 1+ URATE 09/08/19 21:50 Urine Bacteria 0 SEEN /hpf (None Seen) 09/08/19 21:50 Urine Mucus 0 SEEN /hpf (<or=2+) 09/08/19 21:50 - EKG Initial EKG Interpretation: Sinus Rhythm, LBBB - EKG demonstrates a sinus rhythm and left bundle branch block at a rate of 80. Left bundle branch block is a known condition for her - Medical Decision Making Basic blood work is normal. Urinalysis shows some mild proteinuria no obvious infection. Patient's blood pressure is not in any red zone. At this point I think the patient can be discharged home. She should follow her overhead crane technician advised to continue to monitor blood pressure and record and take to him. ED Disposition - Plan for ED Patient: Disposition: Home or Assisted Living Diagnosis: Hypertension Instructions: ED Hypertension Established Referrals: Jessica Forrest MD [Primary Care Provider] - As Needed Gerald Colon MD [STAFF PHYSICIAN] - Keep [place] appointment
[2019-09-08 21:49] LABS: Absolute Lymphocyte Count 3.32 X10^3/uL (0.83-4.51); Absolute Neutrophil Count 4.9 X10^3/uL (2.0-7.7); Basophil# 0.08 X10^3/uL; Basophil% 0.8 % (0-1); Eosinophil# 0.14 X10^3/uL; Eosinophils% 1.5 % (0-5); Hematocrit 41.6 % (37-47); Hemoglobin 13.8 g/dL (12.0-15.0); Lymphocyte # 3.32 X10^3/ul (4.0); Lymphocyte % 35.2 % (19-41); Mean Corp Hgb Conc 33.2 g/dL (32-36); Mean Corpuscular Hgb 30.5 pg (27.0-32.0); Mean Platelet Vol. 10.8 fl (6.2-12.0); Monocyte# 1.01 X10^3/uL; Monocyte% 10.7 % (0-10); NRBC Flagged by Analyzer 0 % (0-5); Neutrophil # 4.86 X10^3/uL (2.7-7.7); Neutrophil % 51.6 % (47-70); Platelet Count 324 K/mm3 (150-450); RBC Distribution Width SD 43.4 fl (35.1-43.9); Red Blood Count 4.52 M/mm3 (4.2-5.4); White Blood Count 9.4 K/mm3 (4.4-11.0)
[2019-09-08 21:58] LABS: Bacteria 0 SEEN /hpf (None Seen); Mucous, Urine 0 SEEN /hpf (<or=2+); White Blood Cells 0 SEEN /hpf (0-5)
[2019-09-08 22:03] LABS: Color, Urine Yellow (Yellow); Glucose, Dipstick Normal (Normal); Ketone-Dipstick 5 mg/dl (Negative); Leukocyte Esterase-Dipstick Negative /ul (Negative); Nitrite-Dipstick Negative (Negative); Occult Blood-Urine 50 /ul (Negative); Protein-Dipstick 15 mg/dl (Negative); Urine Bilirubin Dipstick Negative (Negative); Urine Clarity Sl. Cloudy (Clear); Urine Urobilinogen Normal (Normal)
[2019-09-08 22:03] LABS: AST(SGOT) 15 U/L (15-37); Alanine Aminotransfer ALT/SGPT 14 U/L (13-56); Albumin, Serum 3.9 g/dL (3.2-5.0); Alkaline Phosphatase 88 U/L (45-117); Anion Gap 7 (5-15); BUN 17 mg/dL (7-18); BUN/Creat Ratio 15.2 RATIO (10-20); Calcium,Total 8.4 mg/dL (8.5-10.1); Chloride 108 mmol/L (98-107); Creatinine, Serum 1.12 mg/dL (0.55-1.02); EST Glomerular Filtration Rate 51 mL/min (>60); Est Glom Filt Rate - Afr Amer 62 mL/min (>60); Estimated Creatinine Clearance 43.13 ml/min; Globulin 3.8 g/dL (2.2-4.2); Glucose 86 mg/dL (74-106); Potassium 3.5 mmol/L (3.5-5.1); Protein, Total 7.7 g/dL (6.4-8.2); Sodium Level 143 mmol/L (136-145)
[2019-09-08 22:11] LABS: Amorphous Sediment 1+ URATE; Red Blood Cells-Urine 5-10 SEEN /hpf (0-5); Squamous Epithelial Cells - UA 10-25 SEEN /hpf (5-10)
[2019-09-08 22:38] VITALS: BP 143/75; PULSE 76; RESP 18; O2SAT 96
== END 2019-09-08 22:38 | disposition home or self-care (01) ==
PROVIDERS: Emergency Provider Emergency Medicine; PCP Internal Medicine
DX: I10 Essential (primary) hypertension (principal); I44.7 Left bundle-branch block, unspecified; Z87.891 Personal history of nicotine dependence
CPT/HCPCS: 80053; 81001; 84484; 85025; 93005; 99284; A4216

== ENCOUNTER → 2019-11-17 17:09 | Outpatient (CLI) | payer MEDICARE, SELFPAY | PROVIDERS: PCP Internal Medicine | DX: Z20.828 Contact with and (suspected) exposure to other viral communicable diseases (principal) | CPT/HCPCS: 87635; C9803; U0003 ==

== ENCOUNTER → 2020-04-23 12:52 | Outpatient (CLI) | payer MEDICARE, SELFPAY ==
[2020-04-12 11:06] VITALS: BMI 25.5
--- NOTE | 2020-04-23 12:59 | ECHOD_ITS ---
Reason For Study: CARDIOMYOPATHY Procedure This was a 2D Doppler, Color Flow transthoracic echocardiogram. The exam was of adequate technical quality. Exam performed in department. Left Ventricle Normal LV size. Mild segmental systolic dysfunction (see wall motion). The estimated ejection fraction is 45 %. Septal motion consistent with IVCD. No evidence for diastolic dysfunction. Basal inferoseptal: Hypokinetic. Basal anteroseptal: Hypokinetic. Mid-Anterior : Hypokinetic. Mid- Lateral : Hypokinetic. Mid-Posterior: Hypokinetic. Mid-Inferior: Hypokinetic. Mid-inferoseptal : Hypokinetic. Mid-anteroseptal : Hypokinetic. [place] : Hypokinetic. Right Ventricle Normal RV size. Normal systolic function. Atria Borderline to mildly enlarged left atrium. Normal right atrium. No doppler evidence for ASD. Mitral Valve There is no mitral annular calcification. Normal mitral valve. Trivial mitral valve insufficiency. Tricuspid Valve Normal tricuspid valve. Trivial tricuspid valve insufficiency. Right ventricular systolic pressure estimated to be 31 mmHg. Aortic Valve Trisinus/trileaflet aortic valve. Normal aortic valve. Trivial aortic valve insufficiency. Pulmonic Valve The pulmonic valve is not well visualized. Trivial pulmonic valve insufficiency. Great Vessels Normal sized aortic root. Pericardium/Pleural No pericardial effusion. MMode/2D Measurements & Calculations LVIDd: 4.9 cm IVSd: 0.98 cm Ao root diam: 3.2 cm LVIDs: 3.6 cm LVPWd: 0.99 cm RVDd: 2.9 cm FS: 26.6 % LAV(MOD-bp): 34.2 ml LVAd ap4: 31.6 cm2 SV(MOD-sp4): 49.5 ml LAV(MOD-bp) Indexed: 18.9 ml/m2 EDV(MOD-sp4): 106.1 ml LAV(MOD-sp2): 38.4 ml EDV(sp4-el): 110.1 ml LAV(MOD-sp4): 30.1 ml LVAs ap4: 21.3 cm2 ESV(MOD-sp4): 56.6 ml ESV(sp4-el): 59.3 ml EF(MOD-sp4): 46.6 % EF(sp4-el): 46.1 % SV(sp4-el): 50.8 ml LA A4 area: 12.9 cm2 LA dimension(2D): 3.9 cm RA A4 area: 9.6 cm2 Time Measurements MV dec time: 0.30 sec Doppler Measurements & Calculations MV E max jeramie: 68.6 cm/sec Lat Peak E' [place]: 8.3 cm/sec Med Peak E' [place]: 5.7 cm/sec MV A max jeramie: 106.9 cm/sec E/E' lat: 8.3 E/E' med: 12.0 MV E/A: 0.64 Ao V2 max: 157.5 cm/sec AI max jeramie: 386.7 cm/sec LV V1 max: 114.2 cm/sec Ao max P.9 mmHg AI max P.8 mmHg LV V1 max P.2 mmHg AI dec slope: 200.4 cm/sec2 AI P1/2t: 565.2 msec PA V2 max: 108.1 cm/sec TR max jeramie: 265.4 cm/sec TR max P.2 mmHg Interpretation Summary Mild segmental systolic dysfunction (see wall motion). The estimated ejection fraction is 45 %. Septal motion consistent with IVCD. Borderline to mildly enlarged left atrium. Trivial mitral valve insufficiency. Trivial tricuspid valve insufficiency. Trivial aortic valve insufficiency. Trivial pulmonic valve insufficiency. Right ventricular systolic pressure estimated to be 31 mmHg. No evidence for diastolic dysfunction. Ordering Physician: Gerald Colon Referring Physician: SINGH MASSEY Performed By: Valorie Stallworth RDCS
== END ==
PROVIDERS: PCP Internal Medicine; Referring Provider Internal Medicine Cardiovascular Disease; Visit Provider Internal Medicine Cardiovascular Disease
DX: I25.10 Atherosclerotic heart disease of native coronary artery without angina pectoris (principal); I44.7 Left bundle-branch block, unspecified; I42.9 Cardiomyopathy, unspecified
CPT/HCPCS: 93306

== ENCOUNTER → 2020-10-04 13:46 | Outpatient (CLI) | payer MEDICARE, SELFPAY ==
[2020-04-12 11:06] VITALS: BMI 25.5
--- NOTE | 2020-10-04 13:58 | CT_ITS ---
EXAM: CT ABDOMEN AND PELVIS WITHOUT AND WITH INTRAVENOUS CONTRAST CLINICAL INDICATION: HEMATURIA TECHNIQUE: Helically acquired images were obtained of the abdomen and pelvis without and with intravenous contrast. This CT exam was performed using one or more of the following dose reduction techniques: automated exposure control, adjustment of the mA and/or kV according to patient size, and/or use of iterative reconstruction technique. This report was created using [employer] report generation technology. Delayed imaging was performed. Coronal and sagittal reformatted images were created and reviewed. CONTRAST: IV 100mL Isovue-300 COMPARISON: None. FINDINGS: LOWER THORAX: Unremarkable. Lung bases are clear. No cardiomegaly. No significant pericardial effusion. ABDOMEN: LIVER: Multiple hepatic cysts are well-defined without appreciable contrast enhancement measuring up to 2.5 x 2.7 cm. No required imaging follow-up needed given high likelihood of benign nature. No solid hepatic masses. GALLBLADDER AND BILE DUCTS: Unremarkable. No calcified gallstones. No gallbladder distention or wall edema. No intra- or extrahepatic biliary ductal dilation. PANCREAS: Unremarkable. No focal cystic or solid mass. SPLEEN: Unremarkable. Normal size without focal cystic or solid mass. ADRENALS: Unremarkable. No nodules. KIDNEYS AND URETERS: Unremarkable. Normal renal size and position. No hydronephrosis. STOMACH AND BOWEL: Colonic diverticulosis. Pelvic pessary device noted. No stomach or bowel distention. No focal inflammatory change. PELVIS: APPENDIX: No evidence of acute appendicitis. BLADDER: Urinary bladder is nondistended, poorly evaluated, but there does appear to be wall thickening of the anterior urinary bladder. REPRODUCTIVE: Hysterectomy. ABDOMEN and PELVIS: INTRAPERITONEAL SPACE: Unremarkable. No ascites or other fluid collection. No free air. BONES/JOINTS: Degenerative changes of the lumbar spine with degenerative acquired canal narrowing at L3-L4 and L4-L5.. No suspicious lytic or blastic abnormality. SOFT TISSUES: Small umbilical fat-containing hernia. VASCULATURE: Atherosclerosis of the abdominal aorta and iliac arteries. Abdominal aorta is non-dilated. LYMPH NODES: Unremarkable. No enlarged lymph nodes. CT/CT Abd/Pelvis W/WO Contrast IMPRESSION: 1. No hydronephrosis or urinary tract calcifications. No ureteral obstruction. 2. Poorly evaluated urinary bladder given lack of distention even on delayed imaging. However, suspect anterior diffuse wall thickening which could be artifact of nondistention versus cystitis versus muscular hyperplasia versus less likely neoplasm. Electronically Signed: Jack Castro MD ([place]) at 9:06 EDT , Service support ,
[2020-10-04 14:00] LABS: CREATININE FINGERSTICK 1.4 mg/dL (0.55-1.02)
== END ==
PROVIDERS: PCP Internal Medicine; Referring Provider Urology; Visit Provider Urology
DX: R31.9 Hematuria, unspecified (principal); N39.0 Urinary tract infection, site not specified; M54.9 Dorsalgia, unspecified
CPT/HCPCS: 74178; Q9967

== ENCOUNTER 2021-01-24 21:48 | Emergency (ER) | payer MEDICARE, SELFPAY ==
[2021-01-24 21:49] VITALS: BP 170/101; PULSE 102; RESP 16; TEMP 35.6; O2SAT 98; BMI 24.2
[2021-01-24 22:03] VITALS: BP 155/82; PULSE 82; RESP 16; O2SAT 99
--- NOTE | 2021-01-24 22:06 | EKG12_ITS ---
Test Reason : CP Blood Pressure : / mmHG Vent. Rate : 085 BPM Atrial Rate : 085 BPM P-R Int : 148 ms QRS Dur : 166 ms QT Int : 430 ms P-R-T Axes : 079 -30 113 degrees QTc Int : 511 ms Normal sinus rhythm Left axis deviation Left bundle branch block Abnormal ECG Confirmed by BRICE BROWN, LILIANA ([id number]), editor sound HERON NARAYANAN ([id number]) on 01/28/2021 9:00:33 AM Referred By: VICENTE Confirmed By:LILIANA NARVAEZ MD
--- NOTE | 2021-01-24 22:07 | ED.VIS.CHEST ---
HPI History of Present Illness Chief Complaint: Chest Pain Informant: patient Onset/Context/Timing Onset: Yesterday Quality: Positive for Heaviness and Tightness Location: Substernal Current Severity: Mild Maximum Severity: Mild Narrative Narrative: Patient presents with left posterior shoulder pain that occasionally radiates in the left arm along with upper chest heaviness. She states she developed upper chest heaviness yesterday and has been constant since onset. The posterior shoulder pain started last evening. She does note that she is in physical therapy for some problems with her neck and upper back. She is not sure if this is related to her neck. She denies significant shortness of breath but admits she is not been doing much. She does have a history of nonobstructive coronary artery disease. She did take 1 baby aspirin prior to arrival. [facility] Medical History (Updated 01/24/21 @ 22:[address] Slime Suresh MD) Abnormal stress test Atherosclerosis of [place] coronary artery of [place] heart without angina pectoris Basal cell carcinoma Depression Diverticulosis LBBB (left bundle branch block) DANUTA (obstructive sleep apnea) Home Medications aspirin 81 mg tablet,delayed release 81 mg PO QDAY tab 04/14/17 [History Last Taken 02/21/19] cholecalciferol (vitamin D3) 50 mcg (2,000 unit) capsule 2,000 unit PO QDAY cap 04/14/17 [History Last Taken 02/21/19] fluoxetine 20 mg capsule 20 mg PO QDAY 04/14/17 [History Last Taken 02/21/19] fluticasone propionate 50 mcg/actuation nasal spray,suspension 1 spray INTRANASAL QDAY PRN 04/15/17 [History Last Taken 02/21/19] levothyroxine 50 mcg tablet 50 mcg PO QDAY tab 04/15/17 [History Last Taken 02/21/19] meloxicam 15 mg tablet 15 mg PO QDAY PRN 04/15/17 [History Last Taken Unknown] omeprazole 20 mg capsule,delayed release 60 mg PO QDAY 04/15/17 [History Last Taken 02/21/19] loratadine 10 mg tablet 10 mg PO DAILY PRN 04/18/18 [History Last Taken Unknown] nabumetone 500 mg tablet 500 mg PO BID PRN 04/18/18 [History Last Taken Unknown] ascorbic acid (vitamin C) 500 mg tablet 500 mg PO DAILY 04/12/20 [History Last Taken Unknown] benzonatate 100 mg capsule 100 mg PO BID PRN 04/12/20 [History Last Taken Unknown] ipratropium bromide 21 mcg (0.03 %) nasal spray 2 spray INTRANASAL BID-TID PRN 04/12/20 [History Last Taken Unknown] carvedilol 6.25 mg tablet 6.25 mg PO BID #180 tab 10/14/20 [Rx Last Taken Unknown] losartan 25 mg tablet 12.5 mg PO DAILY #90 tab 10/14/20 [Rx Last Taken Unknown] albuterol sulfate 1 puff INHALATION DAILY 01/24/21 [History Last Taken Unknown] lidocaine [Lidoderm] 1 patch TOPICAL DAILY #6 ea 01/24/21 [Rx Last Taken Unknown] multivitamin 1 tab PO DAILY 01/24/21 [History Last Taken Unknown] Allergy/AdvReac Type Severity Reaction Status Date / Time codeine Allergy Intermediate Itching, Verified 01/24/21 21:52 Hives atropine [From Urised] Allergy Unknown Unknown Verified 01/24/21 21:52 benzoic acid [From Urised] Allergy Unknown Unknown Verified 01/24/21 21:52 diclofenac [From Voltaren] Allergy Unknown Unknown Verified 01/24/21 21:52 hyoscyamine [From Urised] Allergy Unknown Unknown Verified 01/24/21 21:52 methenamine [From Urised] Allergy Unknown Unknown Verified 01/24/21 21:52 methylene blue [From Urised] Allergy Unknown Unknown Verified 01/24/21 21:52 salicylates [From Urised] Allergy Unknown Unknown Verified 01/24/21 21:52 sulfamethoxazole Allergy Unknown Unknown Verified 01/24/21 21:52 [From Septra] trimethoprim [From Septra] Allergy Unknown Unknown Verified 01/24/21 21:52 amoxicillin AdvReac Unknown Unknown Verified 01/24/21 21:52 cephalexin [From Keflex] AdvReac Unknown Unknown Verified 01/24/21 21:52 Penicillins AdvReac Unknown Unknown Verified 01/24/21 21:52 Family History Father Heart disease Heart valve disease Mother Diabetes Myocardial infarction Brother Heart disease Surgical History H/O arthroscopic knee surgery History of carpal tunnel surgery History of cholecystectomy History of left heart catheterization (LHC) (~02/23/19) History of nasal surgery History of neck surgery History of oophorectomy History of total hysterectomy Hx of cataract surgery Social History Smoking Status: Former smoker alcohol intake: current details: rare ROS ROS ED Constitutional Constitutional ED: Denies chills or fever(s) Eyes Eyes: Denies change in vision ENT ENT ED: Denies sore throat Cardiovascular Cardiovascular: Reports chest pain Respiratory/Chest Respiratory/Chest: Denies cough or dyspnea Gastrointestinal Gastrointestinal: Denies abdominal pain, diarrhea, nausea or vomiting Genitourinary Genitourinary ED: Denies dysuria Musculoskeletal Musculoskeletal: Reports arthralgias; Denies back pain Integumentary Denies rash Neurologic Neurologic: Denies headache(s) or weakness Allergic/Immunologic Allergic/Immunologic ED: Denies urticaria EXAM Physical Exam Const Vital Signs: 01/24/21 21:49 01/24/21 22:03 01/24/21 22:07 Temperature 96.0 F L Temperature Source Temporal Pulse Rate 102 H 82 Respiratory Rate 16 16 Respiratory Effort Normal Non-Labored Respiratory Pattern Normal Blood Pressure 170/101 H 155/82 H Blood Pressure Mean 124 106 Pulse Ox 98 99 Oxygen Delivery Method Room Air Room Air Room Air Positive well nourished and well developed General Appearance ED: well developed HEENT Reports normocephalic and head/scalp atraumatic Eyes PERRL and EOMs intact bilaterally Neck supple Chest Wall inspection of chest normal and palpation of chest normal Resp normal respiratory effort and clear to auscultation bilaterally Cardio regular rate and regular rhythm GI normal to inspection, nondistended, normoactive bowel sounds Palpation: soft Back/Spine no CVA tenderness Back/Spine Narrative: Reproducible tenderness in the left upper thoracic paraspinal muscles and over the scapular region. Extremity normal to inspection Neuro oriented x3 and no sensory deficits noted Sensorium / Orientation: alert Motor Exam: strength 5/5 throughout Psych mental status grossly normal Skin no rashes or lesions noted Heart Score History: Slightly/Non-Suspicious ECG: Nonspecific Repolarization Age: >/= 65 years Risk Factors: >/= 3 Risk Factors or History of CAD Troponin: </= Normal Limit Score: 5 MDM MDM MDM Narrative Medical decision making narrative: Patient had taken 1 baby aspirin prior to arrival. She was given 3 additional baby aspirin here. Lab Data Attestation: I reviewed the patient's lab results. Labs: Laboratory Results - last 24 hr 01/24/21 01/24/21 22:03 22:03 WBC 7.9 RBC 4.04 L Hgb 12.3 Hct 36.6 L MCV 90.6 MCH 30.4 MCHC 33.6 RDW Std Deviation 42.4 RDW Coeff of Susan 12.8 Plt Count 251 MPV 10.6 Immature Gran % (Auto) 0.400 Neut % (Auto) 50.2 Lymph % (Auto) 37.2 Marshall % (Auto) 9.1 Eos % (Auto) 2.3 Baso % (Auto) 0.8 Absolute Neuts (auto) 4.0 Absolute Lymphs (auto) 2.93 Nucleated RBC % 0 Sodium 140 Potassium 3.4 L Chloride 107 Carbon Dioxide 26.0 Anion Gap 7 BUN 19 H Creatinine 1.04 H Estim Creat Clear Calc 45.10 Est GFR (MDRD) Af Amer 67 Est GFR (MDRD) Non-Af 55 L BUN/Creatinine Ratio 18.3 Glucose 114 H Calcium 8.8 Troponin I High Sens 8 Radiography Chest X-Ray - ED: 1 View, Read by ED Physician, Normal, Heart, Lungs and Mediastinum EKG Initial EKG: Attestation: I personally reviewed and interpreted this EKG as follows: Interpretation: Sinus Rhythm (Sinus 85 with left bundle branch block. No acute ischemia and unchanged when compared to prior study from August 2019.) Treatment and Re-Evaluation Comments:: On repeat evaluation patient resting comfortably. Test results discussed with her. Potassium is slightly low at 3.4 this will be replaced orally here. With patient having greater than 24 hours of pain and a negative troponin I do not feel she needs admission for further stress test or cardiac work-up. She does have reproducible tenderness in the left upper thoracic paraspinal muscles and I believe she likely has some pinched nerves wrapping around onto the chest wall. We did discuss return indications. She is comfort with this plan. She will be given Lidoderm patch on her back to help with pain. Discharge Plan Triage Chief Complaint: Chest Pain ED Provider: Slime Suresh Dx/Rx/DC Orders Clinical Impression: Cervical radiculopathy, Chest pain Instructions: ED Chest Pain, Noncardiac, ED Radiculopathy, Cervical Prescriptions: New lidocaine [Lidoderm] 5 % adhesive patch,medicated 1 patch topical DAILY Qty: 6 RF: 0 No Action fluticasone propionate [Flonase Allergy Relief] 50 mcg/actuation spray,suspension 1 spray INTRANASAL QDAY PRN (Reason: Nasal Congestion) RF: 0 omeprazole 20 mg capsule,delayed release(DR/EC) 60 mg PO QDAY RF: 0 levothyroxine [Synthroid] 50 mcg tablet 50 mcg PO QDAY RF: 0 fluoxetine 20 mg capsule 20 mg PO QDAY RF: 0 cholecalciferol (vitamin D3) 2,000 unit capsule 2,000 unit PO QDAY RF: 0 aspirin [Ecotrin Low Strength] 81 mg tablet,delayed release (DR/EC) 81 mg PO QDAY RF: 0 meloxicam 15 mg tablet 15 mg PO QDAY PRN (Reason: Pain Or Fever) RF: 0 loratadine 10 mg tablet 10 mg PO DAILY PRN (Reason: Allergies) RF: 0 nabumetone 500 mg tablet 500 mg PO BID PRN (Reason: Pain Or Fever) RF: 0 benzonatate 100 mg capsule 100 mg PO BID PRN (Reason: unknown) RF: 0 ascorbic acid (vitamin C) 500 mg tablet 500 mg PO DAILY RF: 0 ipratropium bromide 0.03 % spray,non-aerosol 2 spray INTRANASAL BID-TID PRN (Reason: allergies) RF: 0 carvedilol 6.25 mg tablet 6.25 mg PO BID Qty: 180 RF: 3 losartan 25 mg tablet 12.5 mg PO DAILY Qty: 90 RF: 3 multivitamin Tablet 1 tab PO DAILY RF: 0 albuterol sulfate 90 mcg/actuation HFA aerosol inhaler 1 puff INHALATION DAILY RF: 0 Primary Care Provider: Jessica Forrest Referrals: Jessica Forrest MD [Primary Care Provider] - 1 Week if not improving Disposition Disposition: Home, Self Care
[2021-01-24] MEDS: Aspirin 81 MG TAB.CHEW 243 MG PO (22:12)
[2021-01-24 22:13] LABS: Absolute Lymphocyte Count 2.93 X10^3/uL (0.83-4.51); Basophil# 0.06 X10^3/uL; Basophil% 0.8 % (0-1); Eosinophil# 0.18 X10^3/uL; Eosinophils% 2.3 % (0-5); Hematocrit 36.6 % (37-47); Hemoglobin 12.3 g/dL (12.0-15.0); Lymphocyte # 2.93 X10^3/ul (0.83-4.51); Lymphocyte % 37.2 % (19-41); Mean Corp Hgb Conc 33.6 g/dL (32-36); Mean Corpuscular Hgb 30.4 pg (27.0-32.0); Mean Corpuscular Volume 90.6 fL (81-99); Mean Platelet Vol. 10.6 fl (6.2-12.0); Monocyte# 0.72 X10^3/uL; Monocyte% 9.1 % (0-10); NRBC Flagged by Analyzer 0 % (0-5); Neutrophil # 3.96 X10^3/uL (2.7-7.7); Neutrophil % 50.2 % (47-70); Platelet Count 251 K/mm3 (150-450); RBC Distribution Width CV 12.8 % (11.6-14.6); RBC Distribution Width SD 42.4 fl (35.1-43.9); Red Blood Count 4.04 M/mm3 (4.2-5.4); White Blood Count 7.9 K/mm3 (4.4-11.0)
--- NOTE | 2021-01-24 22:31 | RAD_ITS ---
INDICATION: chest pain EXAMINATION/TECHNIQUE: X-RAY - XR Chest 1 View COMPARISON: 02/21/2018 chest x-ray FINDINGS: LINES/DEVICES: None. LUNGS: Symmetric, increased lung volumes with mild flattening of the diaphragm the represent some air trapping versus deep inspiratory effort. Lungs are clear without nodule, mass or pleural effusion. No pneumothorax. MEDIASTINUM AND CARDIOVASCULAR STRUCTURES: Retrocardiac opacity with air bubble consistent with intrathoracic stomach. This is not appreciably changed compared to prior exam. Cardiomediastinal silhouette is otherwise within normal limits. Pulmonary vasculature is normal. BONES AND SOFT TISSUES: Anterior distal cervical spine fusion hardware and intervertebral disc spacers. RAD/Chest 1 View (Portable) IMPRESSION: 1. No radiographic evidence of acute cardiopulmonary disease. 2. Moderate-sized hiatal hernia. Electronically Signed: Ryan Zabala DO at 23:43 EST Tel , Service support ,
[2021-01-24 22:33] LABS: Anion Gap 7 (5-15); BUN 19 mg/dL (7-18); BUN/Creat Ratio 18.3 RATIO (10-20); Calcium,Total 8.8 mg/dL (8.5-10.1); Chloride 107 mmol/L (98-107); Creatinine, Serum 1.04 mg/dL (0.55-1.02); EST Glomerular Filtration Rate 55 mL/min (>60); Est Glom Filt Rate - Afr Amer 67 mL/min (>60); Glucose 114 mg/dL (74-106); Potassium 3.4 mmol/L (3.5-5.1); Sodium Level 140 mmol/L (136-145); Troponin-I HS 8 pg/mL (3.0-54.0)
[2021-01-24] MEDS: Lidocaine 5% Patch 1 PATCH TOPICAL (23:02)
[2021-01-24] MEDS: Potassium Chloride Oral Tablet 20 MEQ 40 MEQ PO (23:03)
[2021-01-24 23:07] VITALS: BP 128/59; PULSE 74; PULSE 75; RESP 16; O2SAT 98
== END 2021-01-24 23:08 | disposition home or self-care (01) ==
PROVIDERS: Emergency Provider Emergency Medicine; PCP Internal Medicine
DX: R07.9 Chest pain, unspecified (principal); M54.12 Radiculopathy, cervical region; I44.7 Left bundle-branch block, unspecified; F32.A Depression, unspecified; G47.33 Obstructive sleep apnea (adult) (pediatric); I25.10 Atherosclerotic heart disease of native coronary artery without angina pectoris; K44.9 Diaphragmatic hernia without obstruction or gangrene; Z79.1 Long term (current) use of non-steroidal anti-inflammatories (NSAID); Z79.82 Long term (current) use of aspirin; Z87.891 Personal history of nicotine dependence
CPT/HCPCS: 71045; 80048; 84484; 85025; 93005; 99285

== ENCOUNTER → 2021-06-18 | Outpatient (CLI) | payer MEDICARE, SELFPAY ==
--- NOTE | 2021-06-18 15:24 | NEURO ---
NCS and/or EMG Patient Report Ordering Doctor: Zeyad Iraheta DATE OF SERVICE: 06/18/21 Ioana presents for electrodiagnostic testing of the right upper limb. She reports neck and shoulder pain as well as tingling in the right hand. Electrodiagnostic findings: Right median motor nerve demonstrates normal distal latency and amplitude with borderline reduced conduction velocity. Normal right ulnar motor response. Normal median and ulnar F waves. Normal median sensory latency at the wrist and palm. Normal ulnar and radial sensory responses. On needle EMG, all muscles tested in the right upper limb showed no evidence of denervation with normal motor unit action potentials. No denervation identified in the right cervical paraspinals. Electrodiagnostic impression: This is a normal electrodiagnostic study of the right upper limb. There is no electrodiagnostic evidence for cervical radiculopathy or peripheral neuropathy, including carpal tunnel syndrome.
== END | disposition home or self-care (01) ==
LOC: PSN 14:10
PROVIDERS: PCP Internal Medicine; Visit Provider Orthopaedic Surgery
DX: M47.22 Other spondylosis with radiculopathy, cervical region (principal); R20.2 Paresthesia of skin
CPT/HCPCS: 95886; 95910

== ENCOUNTER → 2021-10-28 | Outpatient (CLI) | payer MEDICARE, SELFPAY ==
--- NOTE | 2021-10-28 11:17 | ECHOD_ITS ---
Reason For Study: CMP Procedure This was a 2D Doppler, Color Flow transthoracic echocardiogram. The exam was of adequate technical quality. Exam performed in department. Left Ventricle Normal LV size. Mild global left ventricular systolic dysfunction. The estimated ejection fraction is 40 %. Septal motion consistent with IVCD. Stage 1 diastolic dysfunction. Right Ventricle Normal RV size. Normal systolic function. Atria Normal left atrium. Normal right atrium. No doppler evidence for ASD. Mitral Valve There is no mitral annular calcification. Normal mitral valve. Trivial mitral valve insufficiency. Tricuspid Valve Normal tricuspid valve. Trivial tricuspid valve insufficiency. Right ventricular systolic pressure estimated to be 26 mmHg. Aortic Valve Trisinus/trileaflet aortic valve. Normal aortic valve. Trivial aortic valve insufficiency. Pulmonic Valve The pulmonic valve is not well visualized. Trivial pulmonic valve insufficiency. Great Vessels Normal sized aortic root. Pericardium/Pleural No pericardial effusion. MMode/2D Measurements & Calculations LVIDd: 5.1 cm IVSd: 1.2 cm Ao root diam: 3.4 cm LVIDs: 3.9 cm LVPWd: 0.78 cm LA dimension: 3.5 cm RVDd: 2.5 cm FS: 23.7 % LAV(MOD-bp): 39.7 ml LVAd ap4: 31.7 cm2 SV(MOD-sp4): 47.8 ml LAV(MOD-bp) Indexed: 22.8 ml/m2 LVLd ap4: 7.5 cm LAV(MOD-sp2): 42.6 ml EDV(MOD-sp4): 106.7 ml LAV(MOD-sp4): 31.2 ml EDV(sp4-el): 113.1 ml LVAs ap4: 21.6 cm2 LVLs ap4: 6.4 cm ESV(MOD-sp4): 58.8 ml ESV(sp4-el): 61.6 ml EF(MOD-sp4): 44.8 % EF(sp4-el): 45.6 % SV(sp4-el): 51.5 ml LA A4 area: 13.7 cm2 RA A4 area: 11.6 cm2 Time Measurements MV dec time: 0.29 sec Doppler Measurements & Calculations MV E max jeramie: 54.1 cm/sec Lat Peak E' Jeramie: 7.4 cm/sec Med Peak E' Jeramie: 5.3 cm/sec MV A max jeramie: 94.4 cm/sec E/E' lat: 7.3 E/E' med: 10.1 MV E/A: 0.57 MV V2 max: 103.6 cm/sec MV P1/2t max jermaie: 60.7 cm/sec Ao V2 max: 153.9 cm/sec MV max P.3 mmHg MV P1/2t: 93.9 msec Ao max P.5 mmHg MV V2 mean: 50.4 cm/sec Ao V2 mean: 104.4 cm/sec MV mean P.2 mmHg MV dec slope: 189.4 cm/sec2 Ao mean P.0 mmHg MV V2 VTI: 29.6 cm MVA(P1/2t): 2.3 cm2 Ao V2 VTI: 34.0 cm AI max ejramie: 403.0 cm/sec LV V1 max: 91.5 cm/sec PA V2 max: 106.2 cm/sec AI max P.0 mmHg LV V1 max P.4 mmHg AI dec slope: 175.8 cm/sec2 AI P1/2t: 671.3 msec TR max jeramie: 238.8 cm/sec TR max P.8 mmHg ECHO/Echo Complete Interpretation Summary Mild global left ventricular systolic dysfunction. The estimated ejection fraction is 40 %. Septal motion consistent with IVCD. Trivial mitral valve insufficiency. Trivial tricuspid valve insufficiency. Trivial aortic valve insufficiency. Trivial pulmonic valve insufficiency. Right ventricular systolic pressure estimated to be 26 mmHg. Stage 1 diastolic dysfunction. Ordering Physician: Gerald Colon Referring Physician: Gerald Colon Performed By: Tony Farah [facility]
== END | disposition home or self-care (01) ==
PROVIDERS: PCP Internal Medicine; Referring Provider Internal Medicine Cardiovascular Disease; Visit Provider Internal Medicine Cardiovascular Disease
DX: I44.7 Left bundle-branch block, unspecified (principal); I42.9 Cardiomyopathy, unspecified; I25.10 Atherosclerotic heart disease of native coronary artery without angina pectoris; E78.5 Hyperlipidemia, unspecified
CPT/HCPCS: 93306

== ENCOUNTER → 2021-11-28 | Outpatient (CLI) | payer MEDICARE, SELFPAY ==
[2021-11-28 10:53] LABS: AST(SGOT) 18 U/L (15-37); Alanine Aminotransfer ALT/SGPT 21 U/L (13-56); Albumin, Serum 3.4 g/dL (3.2-5.0); Alkaline Phosphatase 66 U/L (45-117); Anion Gap 8 (5-15); BUN 21 mg/dL (7-18); BUN/Creat Ratio 24.5 RATIO (10-20); Bilirubin, Direct 0.09 mg/dL (0.00-0.30); Calcium,Total 8.7 mg/dL (8.5-10.1); Chloride 108 mmol/L (98-107); Cholesterol 145 mg/dL (200); Creatinine, Serum 0.86 mg/dL (0.55-1.02); EST Glomerular Filtration Rate 69 mL/min (>60); Est Glom Filt Rate - Afr Amer 83 mL/min (>60); Globulin 3.7 g/dL (2.2-4.2); Glucose 89 mg/dL (74-106); High Density Lipoprotein 76 mg/dL; Potassium 3.8 mmol/L (3.5-5.1); Protein, Total 7.1 g/dL (6.4-8.2); Sodium Level 143 mmol/L (136-145); Triglycerides 73 mg/dL; Very Low Density Lipoprotein 15 mg/dL (5-40)
== END | disposition home or self-care (01) ==
LOC: LAB 09:11
PROVIDERS: PCP Internal Medicine; Visit Provider Internal Medicine Cardiovascular Disease
DX: E78.00 Pure hypercholesterolemia, unspecified (principal); I42.9 Cardiomyopathy, unspecified
CPT/HCPCS: 36415; 80048; 80061; 80076

== ENCOUNTER → 2022-01-28 | Outpatient (CLI) | payer MEDICARE, SELFPAY ==
--- NOTE | 2022-01-28 14:56 | ECHOL_ITS ---
Reason For Study: CAD/ASHD Procedure This was a limited 2D transthoracic echocardiogram. Left Ventricle Normal LV size. Mid cavitary false tendon noted. Segmental dysfunction with preserved ejection fraction (see wall motion). The estimated ejection fraction is 55 %. The global longitudinal strain = -17% (borderline). Septal motion consistent with IVCD. No evidence for diastolic dysfunction. Mid- inferoseptal : Hypokinetic. Mid-anteroseptal : Hypokinetic. [place] : Hypokinetic. Right Ventricle Normal RV size. Normal systolic function. Atria The left atrium is mildly enlarged. Normal right atrium. No doppler evidence for ASD. Mitral Valve There is no mitral annular calcification. Normal mitral valve. Trivial mitral valve insufficiency. Tricuspid Valve Normal tricuspid valve. Trivial tricuspid valve insufficiency. Right ventricular systolic pressure estimated to be 23 mmHg. Aortic Valve Trisinus/trileaflet aortic valve. Normal aortic valve. Pulmonic Valve The pulmonic valve is not well visualized. Trivial pulmonic valve insufficiency. Great Vessels Normal sized aortic root. Pericardium/Pleural No pericardial effusion. MMode/2D Measurements & Calculations LVIDd: 5.1 cm IVSd: 0.98 cm LA dimension: 3.9 cm LVIDs: 3.8 cm LVPWd: 0.87 cm FS: 26.4 % LAV(MOD-sp4): 47.1 ml LA A4 area: 16.8 cm2 RA A4 area: 11.3 cm2 Time Measurements MV dec time: 0.28 sec Doppler Measurements & Calculations MV E max jeramie: 76.1 cm/sec Lat Peak E' Jeramie: 8.5 cm/sec Med Peak E' Jeramie: 6.0 cm/sec MV A max jeramie: 99.4 cm/sec E/E' lat: 9.0 E/E' med: 12.6 MV E/A: 0.77 TR max jeramie: 220.8 cm/sec TR max P.5 mmHg ECHO/Echo, Limited Study Interpretation Summary Segmental dysfunction with preserved ejection fraction (see wall motion). The estimated ejection fraction is 55 %. The global longitudinal strain = -17% (borderline). Septal motion consistent with IVCD. Mid cavitary false tendon noted. The left atrium is mildly enlarged. Trivial mitral valve insufficiency. Trivial tricuspid valve insufficiency. Trivial pulmonic valve insufficiency. Right ventricular systolic pressure estimated to be 23 mmHg. No evidence for diastolic dysfunction. Ordering Physician: Gerald Colon Referring Physician: Jessica Forrest M.D. Performed By: Tony Farah RCS
== END | disposition home or self-care (01) ==
LOC: CVS 14:55
PROVIDERS: PCP Internal Medicine; Referring Provider Internal Medicine Cardiovascular Disease; Visit Provider Internal Medicine Cardiovascular Disease
DX: I25.10 Atherosclerotic heart disease of native coronary artery without angina pectoris (principal); I42.9 Cardiomyopathy, unspecified; I44.7 Left bundle-branch block, unspecified
CPT/HCPCS: 93308

== ENCOUNTER → 2022-04-02 | Outpatient (CLI) | payer MEDICARE, SELFPAY ==
--- NOTE | 2022-04-02 12:33 | MRI_ITS ---
HISTORY: Lower back pain, sciatica, lower right back and buttock pain for several months. SPINAL STENOSIS, LUMBAR REGION. TECHNIQUE: Multiplanar and multisequence MR images of the lumbar spine were obtained without intravenous contrast. 152 images. COMPARISON: CT 10/04/2020. FINDINGS: VERTEBRAE: Vertebral body heights maintained. Mild degenerative bone marrow endplate changes of L2-3 and L3-4 with anterior osteophytes also noted. ALIGNMENT: No anterior or posterior subluxation. Mild shaped scoliosis. CONUS: Normal morphology and position of the conus medullaris at L1-2. INTERVERTEBRAL DISCS: Posterior disc bulge osteophyte complexes with facet arthropathy at multiple levels. T12-L1: Minimal narrowing of the thecal sac without significant foraminal narrowing based on the sagittal images. L1-2: Minimal narrowing of the thecal sac without significant foraminal narrowing. L2-3: Minimal narrowing of the thecal sac with abutment of the bilateral L3 nerve roots and mild bilateral foraminal narrowing. L3-4: Minimal narrowing of the thecal sac with abutment of the bilateral L4 nerve roots and mild left foraminal narrowing. L4-5: Minimal narrowing of the thecal sac with abutment of the bilateral L5 nerve roots, moderate right, and mild left foraminal narrowing. L5-S1: Minimal narrowing of the thecal sac. No significant foraminal narrowing. SOFT TISSUES: No paraspinal fluid collection. Bilateral renal sinus cysts. MRI/Spine Lumbar (Routine) IMPRESSION: Multilevel degenerative disc disease without significant lumbar spinal canal stenosis. Foraminal narrowing with nerve root abutment as above. Mild scoliosis. Electronically Signed: Stephanie Shaikh MD at 14:34 EST ,
== END | disposition home or self-care (01) ==
PROVIDERS: PCP Internal Medicine; Visit Provider Orthopaedic Surgery
DX: M48.061 Spinal stenosis, lumbar region without neurogenic claudication (principal); M47.816 Spondylosis without myelopathy or radiculopathy, lumbar region; M51.36 Other intervertebral disc degeneration, lumbar region
CPT/HCPCS: 72148

== ENCOUNTER → 2022-07-21 | Outpatient (CLI) | payer MEDICARE, SELFPAY ==
--- NOTE | 2022-07-21 13:08 | CT_ITS ---
EXAM: CT ABDOMEN AND PELVIS WITHOUT INTRAVENOUS CONTRAST CLINICAL INDICATION: HX OF STONES, RT FLANK PAIN, URGENCY TECHNIQUE: Helically acquired images were obtained of the abdomen and pelvis without intravenous contrast. This CT exam was performed using one or more of the following dose reduction techniques: automated exposure control, adjustment of the mA and/or kV according to patient size, and/or use of iterative reconstruction technique. COMPARISON: 10/04/2020 FINDINGS: LOWER THORAX: Unremarkable. Lung bases are clear. No cardiomegaly. No significant pericardial effusion. ABDOMEN: LIVER: There is a low-density mass in the liver compatible with a cyst. GALLBLADDER AND BILE DUCTS: Unremarkable. No calcified gallstones. No gallbladder distention or wall edema. No intra- or extrahepatic biliary ductal dilation. PANCREAS: Unremarkable. No focal cystic mass. SPLEEN: Unremarkable. Normal size without focal cystic or solid mass. ADRENALS: Unremarkable. No nodules. KIDNEYS AND URETERS: Unremarkable. Normal renal size and position. No hydronephrosis. STOMACH AND BOWEL: There is sigmoid diverticulosis with no evidence of diverticulitis. No stomach or bowel distention. PELVIS: APPENDIX: No evidence of acute appendicitis. BLADDER: Unremarkable. REPRODUCTIVE: There is a rounded density structure in the lower pelvis compatible with a pessary. ABDOMEN and PELVIS: INTRAPERITONEAL SPACE: Unremarkable. No ascites or other fluid collection. No free air. BONES/JOINTS: Unremarkable. No suspicious lytic or blastic abnormality. SOFT TISSUES: Unremarkable. No discrete abdominal or pelvic wall hernia. VASCULATURE: Unremarkable. Abdominal aorta is non-dilated. LYMPH NODES: Unremarkable. No enlarged lymph nodes. CT/Abdomen/Pelvis without Cont IMPRESSION: No acute abnormalities in the abdomen or pelvis. There has been no significant change from the reference exam. Electronically Signed: Jimi Blair MD at 23:17 EDT ,
== END | disposition home or self-care (01) ==
LOC: CT 13:06
PROVIDERS: PCP Internal Medicine; Referring Provider Urology; Visit Provider Urology
DX: R10.9 Unspecified abdominal pain (principal); N39.41 Urge incontinence; Z87.442 Personal history of urinary calculi
CPT/HCPCS: 74176

== ENCOUNTER 2022-08-08 12:53 | Emergency (ER) | payer MEDICARE, SELFPAY ==
[2022-08-08 12:55] VITALS: BP 128/64; PULSE 72; RESP 14; TEMP 36.1; O2SAT 96; BMI 24.2
--- NOTE | 2022-08-08 13:15 | EDS_ITS ---
HPI <YAZ Weldon - Last Filed: 08/08/22 14:32> History of Present Illness Chief Complaint: Lower Extremity Injury Narrative Narrative: Patient presenting today due to pain in her left hip that she has had since Wednesday night. She reports that on Wednesday she was performing various exercises including range of motion exercises with her left hip. By that evening, she began to feel pain in her left hip that radiates down her left thigh. She did go to urgent care on where they performed x-rays of her left hip and her lower back that were unremarkable. She has been using ice, Tylenol, and Advil with minimal relief. Urgent care did put her on prednisone which is not helping. Patient is in pain management due to chronic neck and back pain and she receives injections through them. She is following up with orthopedics regarding this pain in her left hip on Wednesday but is in too much pain to wait until then. [facility] <YAZ Weldon - Last Filed: 08/08/22 14:32> [facility] Medical History (Updated 08/08/22 @ 13:[address] Roel Escalera MD) Abnormal stress test Atherosclerosis of [place] coronary artery of [place] heart without angina pectoris Basal cell carcinoma Depression Diverticulosis LBBB (left bundle branch block) DANUTA (obstructive sleep apnea) Home Medications cholecalciferol (vitamin D3) 50 mcg (2,000 unit) capsule 2,000 unit PO QDAY supplement 04/14/17 [History Last Taken 02/21/19] fluoxetine 20 mg capsule 20 mg PO QDAY 04/14/17 [History Last Taken 02/21/19] fluticasone propionate 50 mcg/actuation nasal spray,suspension (Flonase Allergy Relief) 1 spray intranasal QDAY PRN Nasal Congestion 04/15/17 [History Last Taken 02/21/19] levothyroxine 50 mcg tablet (Synthroid) 50 mcg PO QDAY 04/15/17 [History Last Taken 02/21/19] meloxicam 15 mg tablet 15 mg PO QDAY PRN Pain Or Fever 04/15/17 [History Last Taken Unknown] ascorbic acid (vitamin C) 500 mg tablet 500 mg PO DAILY 04/12/20 [History Last Taken Unknown] benzonatate 100 mg capsule 100 mg PO BID PRN unknown 04/12/20 [History Last Taken Unknown] ipratropium bromide 21 mcg (0.03 %) nasal spray 2 spray intranasal BID-TID PRN allergies 04/12/20 [History Last Taken Unknown] multivitamin 1 tab PO DAILY 01/24/21 [History Last Taken Unknown] albuterol sulfate 90 mcg/actuation aerosol inhaler 1 puff inhalation DAILY PRN Wheezing 04/11/21 [History Last Taken Unknown] estradiol 0.25 mg/0.25 gram (0.1 %) transdermal gel packet 1 packet transdermal QWEEK 04/11/21 [History Last Taken Unknown] fexofenadine 180 mg tablet (Dai Allergy) 180 mg PO DAILY PRN allergies 04/11/21 [History Last Taken Unknown] lansoprazole 30 mg capsule,delayed release 60 mg PO DAILY 04/11/21 [History Last Taken Unknown] carvedilol 6.25 mg tablet 6.25 mg PO BID heart #180 tabs 09/04/21 [Rx Last Taken Unknown] atorvastatin 20 mg tablet 20 mg PO DAILY #90 tabs 10/15/21 [Rx Last Taken Unknown] calcium 650 mg-vitamin D3 12.5 mcg-vitamin K 40 mcg chewable tablet (Viactiv) 1 tab PO DAILY 10/15/21 [History Last Taken Unknown] metronidazole 0.75 % topical gel 1 applic topical DAILY PRN Skin Cleansing 10/15/21 [History Last Taken Unknown] sacubitril 24 mg-valsartan 26 mg tablet (Entresto) 1 tab PO BID #180 tabs 11/24/21 [Rx Last Taken Unknown] Allergy/AdvReac Type Severity Reaction Status Date / Time codeine Allergy Intermediate Itching, Verified 08/08/22 12:54 Hives atropine [From Urised] Allergy Unknown Unknown Verified 08/08/22 12:54 benzoic acid [From Urised] Allergy Unknown Unknown Verified 08/08/22 12:54 diclofenac [From Voltaren] Allergy Unknown Unknown Verified 08/08/22 12:54 hyoscyamine [From Urised] Allergy Unknown Unknown Verified 08/08/22 12:54 methenamine [From Urised] Allergy Unknown Unknown Verified 08/08/22 12:54 methylene blue [From Urised] Allergy Unknown Unknown Verified 08/08/22 12:54 salicylates [From Urised] Allergy Unknown Unknown Verified 08/08/22 12:54 sulfamethoxazole Allergy Unknown Unknown Verified 08/08/22 12:54 [From Septra] trimethoprim [From Septra] Allergy Unknown Unknown Verified 08/08/22 12:54 amoxicillin AdvReac Unknown Unknown Verified 08/08/22 12:54 cephalexin [From Keflex] AdvReac Unknown Unknown Verified 08/08/22 12:54 Penicillins AdvReac Unknown Unknown Verified 08/08/22 12:54 Family History Father Heart disease Heart valve disease Mother Diabetes Myocardial infarction Brother Heart disease Surgical History H/O arthroscopic knee surgery History of carpal tunnel surgery History of cholecystectomy History of left heart catheterization (LHC) (~02/23/19) History of nasal surgery History of neck surgery History of oophorectomy History of total hysterectomy Hx of cataract surgery Social History Smoking Status: Former smoker alcohol intake: current details: rare ROS <YAZ Weldon - Last Filed: 08/08/22 14:32> ROS ED Constitutional Constitutional ED: Denies chills or fever(s) Cardiovascular Cardiovascular: Denies chest pain Respiratory/Chest Respiratory/Chest: Denies cough or dyspnea Gastrointestinal Gastrointestinal: Denies abdominal pain, nausea or vomiting Musculoskeletal Musculoskeletal: Reports arthralgias and myalgias Integumentary Denies abscess, Abrasions or rash Neurologic Neurologic: Denies paresthesias or weakness EXAM <YAZ Weldon - Last Filed: 08/08/22 14:32> Physical Exam Const Vital Signs: 08/08/22 12:55 Temperature 97 F L Temperature Source Temporal Pulse Rate 72 Respiratory Rate 14 Blood Pressure 128/64 H Blood Pressure Mean 85 Pulse Ox 96 Oxygen Delivery Method Room Air Positive well nourished, well developed and no apparent distress General Appearance ED: well developed HEENT Reports normocephalic and head/scalp atraumatic Mouth ED: Yes moist mucous membranes normal Eyes PERRL and EOMs intact bilaterally Neck full ROM and supple Chest Wall inspection of chest normal Resp normal respiratory effort and clear to auscultation bilaterally Cardio regular rate and regular rhythm GI soft to palpation, non-tender, non-distended and no masses Back/Spine normal ROM and normal to inspection Extremity normal to inspection and full ROM Extremity Narrative: DP pulses 2+ bilaterally, good capillary refill, sensation intact. Pain to palpation to the left hip and into the lateral aspect of right thigh. General Extremety ED: Negative for edema General Extremity: Negative for edema Neuro oriented x3, CN's II-XII intact bilaterally, moves all extremities, no focal motor deficits and no sensory deficits noted Sensorium / Orientation: awake and alert Motor Exam: strength 5/5 throughout Psych mental status grossly normal and thought process normal Skin no rashes or lesions noted and no wounds <Dr. Roel Escalera MD - Last Filed: 08/08/22 13:50> Physical Exam Const Vital Signs: 08/08/22 12:55 Temperature 97 F L Temperature Source Temporal Pulse Rate 72 Respiratory Rate 14 Blood Pressure 128/64 H Blood Pressure Mean 85 Pulse Ox 96 Oxygen Delivery Method Room Air MDM <YAZ Weldon - Last Filed: 08/08/22 14:32> [facility] Narrative Medical decision making narrative: Patient presenting today due to pain in her left hip that she has had since Wednesday after performing several exercises including range of motion exercises with her left hip. Patient went to urgent care where they performed an x-ray of her lower back and left hip which were negative, they put her on prednisone which she has not found any relief from. She will be seeing orthopedics on Wednesday. She is able to ambulate and bear weight without difficulty. Patient's examination is consistent with a muscular strain or possible left hip bursitis. She has been given RICE instructions and is to alternate Tylenol and ibuprofen for pain. She is to follow-up with orthopedics and be discharged home in stable condition. She is comfortable with plan. I have personally performed a face to face assessment of the patient and have reviewed the ROVERTO Note. I performed a substantive portion of the visit including all aspects of the following. My parker findings include: History is 76-year-old female complaining of atraumatic left hip pain for last several days after doing stretching exercises. Denies any fall injury or trauma. No fever or rash. No prior hip or leg surgery. She is able to ambulate on it just sore. She was seen in urgent care x-rays were negative of her lower back and hip. They started her on prednisone tapering dose. Exam is [well-appearing 76-year-old female. Vital signs stable lungs are clear. Heart regular rhythm. Abdomen soft nontender. Back nontender. No lumbar tenderness. SI joints nontender. Both lower extremities are neurovascular intact with normal range of motion. Dorsi plantarflexion. Touch sensation. Normal range of motion of the left hip, knee ankle foot. Her left leg there is no signs of trauma. No bruising. No redness or warmth. No fever. No joint swelling. She has mild soft tissue tenderness over the left hip bursa. However there is no swelling. Neurologic exam normal.] Medical Decison Making [patient is already had x-rays that were negative at the urgent care. She and I discussed that and neither she nor I feel that they need to be repeated. She had no trauma. She will continue and finish the steroids. Intermittent Tylenol for pain and Motrin to twice a day. I think this is either soft tissue strain and pain from that or a left hip bursitis. She knows this should progressively improve. She has an appointment to see orthopedics on Wednesday. She will return if worse or she develops a fever or redness.] Other additions or changes: [None] <Dr. Roel Escalera MD - Last Filed: 08/08/22 13:50> MDM MDM Narrative Medical decision making narrative: Patient presenting today due to pain in her left hip that she has had since Wednesday after performing several exercises including range of motion exercises with her left hip. Patient to urgent care where they performed an x- ray of her lower back and left hip which were negative, they put her on prednisone which she has not found any relief from. She has seen orthopedics on Wednesday. But is in too much pain to make it until then. She is able to ambulate and bear weight without difficulty. I have personally performed a face to face assessment of the patient and have reviewed the ROVERTO Note. I performed a substantive portion of the visit including all aspects of the following. My parker findings include: History is 76-year-old female complaining of atraumatic left hip pain for last several days after doing stretching exercises. Denies any fall injury or trauma. No fever or rash. No prior hip or leg surgery. She is able to ambulate on it just sore. She was seen in urgent care x-rays were negative of her lower back and hip. They started her on prednisone tapering dose. Exam is [well-appearing 76-year-old female. Vital signs stable lungs are clear. Heart regular rhythm. Abdomen soft nontender. Back nontender. No lumbar te nderness. SI joints nontender. Both lower extremities are neurovascular intact with normal range of motion. Dorsi plantarflexion. Touch sensation. Normal range of motion of the left hip, knee ankle foot. Her left leg there is no signs of trauma. No bruising. No redness or warmth. No fever. No joint swelling. She has mild soft tissue tenderness over the left hip bursa. However there is no swelling. Neurologic exam normal.] Medical Decison Making [patient is already had x-rays that were negative at the urgent care. She and I discussed that and neither she nor I feel that they need to be repeated. She had no trauma. She will continue and finish the steroids. Intermittent Tylenol for pain and Motrin to twice a day. I think this is either soft tissue strain and pain from that or a left hip bursitis. She knows this should progressively improve. She has an appointment to see orthopedics on Wednesday. She will return if worse or she develops a fever or redness.] Other additions or changes: [None] Discharge Plan Triage Chief Complaint: Lower Extremity Injury ED Midlevel Provider: Carine Mi ED Provider: Roel Escalera Dx/Rx/DC Orders Clinical Impression: Muscle strain of left hip Instructions: ED Hip Strain Prescriptions: No Action fluticasone propionate [Flonase Allergy Relief] 50 mcg/actuation spray,suspension 1 spray INTRANASAL QDAY PRN (Reason: Nasal Congestion) levothyroxine [Synthroid] 50 mcg tablet 50 mcg PO QDAY fluoxetine 20 mg capsule 20 mg PO QDAY cholecalciferol (vitamin D3) 2,000 unit capsule 2,000 unit PO QDAY meloxicam 15 mg tablet 15 mg PO QDAY PRN (Reason: Pain Or Fever) benzonatate 100 mg capsule 100 mg PO BID PRN (Reason: unknown) ascorbic acid (vitamin C) 500 mg tablet 500 mg PO DAILY ipratropium bromide 0.03 % spray,non-aerosol 2 spray INTRANASAL BID-TID PRN (Reason: allergies) Rx Instructions: administer into each nostril lansoprazole 30 mg capsule,delayed release(DR/EC) 60 mg PO DAILY estradiol 0.25 mg/0.25 gram (0.1 %) gel in packet 1 packet transdermal QWEEK fexofenadine [Dai Allergy] 180 mg tablet 180 mg PO DAILY PRN (Reason: allergies) calcium-vitamin D3-vitamin K [Viactiv] 650 mg-12.5 mcg-40 mcg tablet,chewable 1 tab PO DAILY metronidazole 0.75 % gel 1 applic topical DAILY PRN (Reason: Skin Cleansing) atorvastatin 20 mg tablet 20 mg PO DAILY Qty: 90 3RF multivitamin Tablet 1 tab PO DAILY albuterol sulfate 90 mcg/actuation HFA aerosol inhaler 1 puff INHALATION DAILY PRN (Reason: Wheezing) carvedilol 6.25 mg tablet 6.25 mg PO BID Qty: 180 3RF Rx Instructions: must administer with a meal/food Entresto 24-26 mg tablet 1 tab PO BID Qty: 180 3RF Primary Care Provider: Jessica Forrest Referrals: Jessica Forrest MD [Primary Care Provider] - Activity Restrictions/Additional Instructions: Most likely this is either a muscle strain of your hip or bursitis which is inflammation of the bursa sac. Ice to the area. Continue and finish your prednisone. Tylenol and Motrin for pain. I would not use more than 2 Motrin twice a day while you are on the steroids. Follow-up with your appointment with orthopedics this coming week. If you develop a fever, redness or just feeling a lot worse you can return to the emergency department. This should progressively get better in the next several days to week. Disposition Disposition: Home, Self Care Discharge Date/Time: 08/08/22 14:18
== END 2022-08-08 14:18 | disposition home or self-care (01) ==
LOC: ED 13:54
PROVIDERS: Emergency Provider Emergency Medicine; PCP Internal Medicine; Referring Provider Emergency Medicine; Visit Provider Emergency Medicine
DX: S76.012A Strain of muscle, fascia and tendon of left hip, initial encounter (principal); I25.10 Atherosclerotic heart disease of native coronary artery without angina pectoris; Z87.891 Personal history of nicotine dependence; F32.A Depression, unspecified; Z79.899 Other long term (current) drug therapy; Z90.49 Acquired absence of other specified parts of digestive tract; Z90.710 Acquired absence of both cervix and uterus; X58.XXXA Exposure to other specified factors, initial encounter; Y93.B9 Activity, other involving muscle strengthening exercises
CPT/HCPCS: 99282

== ENCOUNTER → 2022-10-15 | Outpatient (CLI) | payer MEDICARE, SELFPAY ==
--- NOTE | 2022-10-15 10:00 | RAD_ITS ---
STUDY: X-RAY CHEST REASON FOR EXAM: Female, 76 years old. Preoperative evaluation. TECHNIQUE: Frontal and lateral views of the chest. COMPARISON: Chest dated December 2020. FINDINGS: Mild hyperinflation. Borderline cardiomegaly with aortic tortuosity. Stable hiatal hernia with air-fluid level. No abnormality of the visualized soft tissue structures of the upper abdomen. RAD/Chest PA and Lateral IMPRESSION: Stable chest with no acute or active cardiopulmonary disease. Electronically Signed: Sergo Mckeon MD at 11:07 EDT ,
[2022-10-15 10:47] LABS: Absolute Neutrophil Count 3.4 X10^3/uL (2.0-7.7); Basophil# 0.04 X10^3/uL; Basophil% 0.7 % (0-1); Eosinophil# 0.13 X10^3/uL; Eosinophils% 2.4 % (0-5); Hematocrit 34.9 % (37-47); Hemoglobin 11.5 g/dL (12.0-15.0); Lymphocyte % 25.8 % (19-41); Mean Corpuscular Hgb 31.6 pg (27.0-32.0); Mean Corpuscular Volume 95.9 fL (81-99); Mean Platelet Vol. 10.9 fl (6.2-12.0); Monocyte# 0.47 X10^3/uL; Monocyte% 8.7 % (0-10); NRBC Flagged by Analyzer 0 % (0-5); Neutrophil # 3.36 X10^3/uL (2.7-7.7); Platelet Count 242 K/mm3 (150-450); RBC Distribution Width CV 13.2 % (11.6-14.6); RBC Distribution Width SD 47.3 fl (35.1-43.9); Red Blood Count 3.64 M/mm3 (4.2-5.4); White Blood Count 5.4 K/mm3 (4.4-11.0)
[2022-10-15 12:39] LABS: Anion Gap 6 (5-15); BUN 19 mg/dL (7-18); Calcium,Total 8.9 mg/dL (8.5-10.1); Chloride 109 mmol/L (98-107); EST Glomerular Filtration Rate 58 mL/min (>60); Est Glom Filt Rate - Afr Amer 70 mL/min (>60); Ferritin 44 ng/mL (8-252); Glucose 95 mg/dL (74-106); Iron 68 ug/dL (50-170); Iron Binding Capacity,Total 306 ug/dL (250-450); PERCENT IRON SATURATION 22.2 % (15.0-55.0); Sodium Level 140 mmol/L (136-145)
[2022-10-15 21:25] LABS: Vitamin B12 699 pg/mL (211-911)
== END | disposition home or self-care (01) ==
PROVIDERS: PCP Internal Medicine; Referring Provider Orthopaedic Surgery; Visit Provider Orthopaedic Surgery
DX: Z01.818 Encounter for other preprocedural examination (principal); M46.96 Unspecified inflammatory spondylopathy, lumbar region; M48.061 Spinal stenosis, lumbar region without neurogenic claudication; M47.816 Spondylosis without myelopathy or radiculopathy, lumbar region; M41.86 Other forms of scoliosis, lumbar region; M51.36 Other intervertebral disc degeneration, lumbar region; Z01.812 Encounter for preprocedural laboratory examination; Z01.810 Encounter for preprocedural cardiovascular examination; D64.9 Anemia, unspecified; I51.7 Cardiomegaly; K44.9 Diaphragmatic hernia without obstruction or gangrene; Z01.811 Encounter for preprocedural respiratory examination
CPT/HCPCS: 36415; 71046; 80048; 82607; 82728; 82746; 83540; 83550; 85025; 85610; 85730; 93005

== ENCOUNTER → 2022-12-03 | Outpatient (CLI) | payer MEDICARE, SELFPAY ==
--- NOTE | 2022-12-03 10:22 | RAD_ITS ---
STUDY: X-RAY CHEST REASON FOR EXAM: Female, 76 years old. COUGH TECHNIQUE: PA and lateral views of the chest. COMPARISON: October 15, 2022 FINDINGS: The lungs are clear and expanded. There is no demonstrated pleural abnormality. Normal size heart. There is large retrocardiac hiatal hernia. Normal visualized pulmonary arteries. Normal visualized aortic arch and descending thoracic aorta. Normal visualized thoracic spine. There is postoperative change of the cervical spine. Normal visualized ribs, clavicles, and shoulders. There is no demonstrated abnormality of the visualized soft tissue structures of the upper abdomen. RAD/Chest PA and Lateral IMPRESSION: Large hiatal hernia. No acute cardiopulmonary disease. Stable appearance. Electronically Signed: Carmelo Velasquez MD at 13:47 EDT ,
== END | disposition home or self-care (01) ==
LOC: RAD 10:17
PROVIDERS: PCP Internal Medicine; Referring Provider Otolaryngology; Visit Provider Otolaryngology
DX: R05.9 Cough, unspecified (principal)
CPT/HCPCS: 71046

== ENCOUNTER → 2022-12-15 | Outpatient (CLI) | payer MEDICARE, SELFPAY ==
--- NOTE | 2022-12-16 08:54 | STRESSREP ---
Stress Test Report Pharmacologic myocardial perfusion stress test. 77-year-old lady with a history of chest pain and preoperative cardiac evaluation Resting EKG demonstrates sinus bradycardia with a rate of 59 bpm. A left bundle branch block pattern is noted. Resting blood pressure is 96/64 mmHg. 0.4 mg of regadenoson was infused per usual protocol followed by rapid intravenous saline flush injection. Continuous EKG monitoring was performed. The maximum heart rate was 91 bpm which was 62% of max impacted heart rate the maximum workload was 1 metabolic equivalent. At rest there were no ST or T wave changes noted to suggest ischemia and at peak infusion nonspecific ST changes were noted which did not meet the criteria for ischemia. No clinical angina is noted. The final blood pressure was 104/62 mmHg. Myocardial perfusion protocol. 11.7 mCi of technetium 99m sestamibi was injected at rest. 0.4 mg of regadenoson was infused per usual protocol. At peak infusion 32.6 mCi of technetium 99m sestamibi was injected stress images were obtained stress and rest images were reconstructed and compared in the short axis vertical long and horizontal long axis. Gated images were also obtained. Perfusion SPECT analysis: Review of the stress images demonstrate normal uptake of tracer noted in all areas of the myocardium except for the apical septal wall with reduced perfusion consistent with left bundle branch block pattern. The resting images similarly demonstrated uptake of tracer noted in all areas of the myocardium with apical sparing consistent with a left bundle branch block pattern.. No areas of reversibility are noted to suggest ischemia and no previous infarct is noted. Gated SPECT analysis: The gated ejection fraction is 59%. Conclusion: Low risk pharmacologic myocardial perfusion stress test. No obvious ischemia noted Preserved ejection fraction.
== END | disposition home or self-care (01) ==
LOC: CVS 06:21
PROVIDERS: PCP Internal Medicine; Referring Provider Nurse Practitioner Gerontology; Visit Provider Nurse Practitioner Gerontology
DX: R07.89 Other chest pain (principal); Z01.810 Encounter for preprocedural cardiovascular examination; I25.10 Atherosclerotic heart disease of native coronary artery without angina pectoris; I44.7 Left bundle-branch block, unspecified
CPT/HCPCS: 78452; 93017; A9500; A4216; J2785

== ENCOUNTER → 2023-08-11 | Outpatient (CLI) | payer MEDICARE, SELFPAY ==
[2023-08-11 15:12] LABS: Absolute Lymphocyte Count 2.08 X10^3/uL (0.83-4.51); Absolute Neutrophil Count 5.2 X10^3/uL (2.0-7.7); Basophil# 0.08 X10^3/uL; Eosinophil# 0.17 X10^3/uL; Eosinophils% 2.1 % (0-5); Hematocrit 35.6 % (37-47); Hemoglobin 11.7 g/dL (12.0-15.0); Lymphocyte # 2.08 X10^3/ul (0.83-4.51); Lymphocyte % 25.4 % (19-41); Mean Corp Hgb Conc 32.9 g/dL (32-36); Mean Corpuscular Hgb 30.2 pg (27.0-32.0); Mean Corpuscular Volume 91.8 fL (81-99); Mean Platelet Vol. 11.1 fl (6.2-12.0); Monocyte# 0.64 X10^3/uL; Monocyte% 7.8 % (0-10); NRBC Flagged by Analyzer 0 % (0-5); Neutrophil # 5.21 X10^3/uL (2.7-7.7); Neutrophil % 63.5 % (47-70); Platelet Count 219 K/mm3 (150-450); RBC Distribution Width CV 13.4 % (11.6-14.6); Red Blood Count 3.88 M/mm3 (4.2-5.4); White Blood Count 8.2 K/mm3 (4.4-11.0)
[2023-08-11 15:42] LABS: Anion Gap 4 (5-15); BUN 21 mg/dL (7-18); BUN/Creat Ratio 20.6 RATIO (10-20); Chloride 108 mmol/L (98-107); Creatinine, Serum 1.02 mg/dL (0.55-1.02); EST Glomerular Filtration Rate 56 mL/min (>60); Est Glom Filt Rate - Afr Amer 68 mL/min (>60); Glucose 93 mg/dL (74-106); Potassium 4.6 mmol/L (3.5-5.1); Sodium Level 139 mmol/L (136-145); Thyroid Stim Hormone (TSH) 1.12 uIU/mL (0.358-3.74)
== END | disposition home or self-care (01) ==
LOC: LAB 14:11
PROVIDERS: PCP Internal Medicine; Referring Provider Nurse Practitioner Gerontology; Visit Provider Nurse Practitioner Gerontology
DX: R42 Dizziness and giddiness (principal); I42.9 Cardiomyopathy, unspecified; R53.83 Other fatigue; R55 Syncope and collapse
CPT/HCPCS: 36415; 80048; 83735; 84443; 85025

== ENCOUNTER → 2023-08-13 | Outpatient (CLI) | payer MEDICARE, SELFPAY | END | disposition home or self-care (01) | LOC: PSN 11:56 | PROVIDERS: PCP Internal Medicine; Referring Provider Nurse Practitioner Gerontology; Visit Provider Nurse Practitioner Gerontology | DX: R55 Syncope and collapse (principal) | CPT/HCPCS: 93225; 93226 ==

== ENCOUNTER 2023-08-14 23:37 | Observation (INO) | payer MEDICARE, SELFPAY ==
--- NOTE | 2023-08-14 00:08 | RAD_ITS ---
INDICATION: chest pain EXAMINATION/TECHNIQUE: X-RAY - portable upright AP chest x-ray COMPARISON: 12/03/2022 FINDINGS: LINES/DEVICES: None. LUNGS: No consolidation, edema or effusion. No pneumothorax. MEDIASTINUM AND CARDIOVASCULAR STRUCTURES: Cardiac silhouette stable within normal limits. Stable retrocardiac hiatal hernia with fluid level. BONES AND SOFT TISSUES: No acute changes. Interval placement thoracic stimulator leads. RAD/Chest 1 View (Portable) IMPRESSION: No radiographic evidence of acute cardiopulmonary disease. Electronically Signed: Elie Cuello MD at 0:24 EDT ,
[2023-08-14 23:38] VITALS: BP 148/99; PULSE 76; RESP 15; TEMP 36.6; O2SAT 98; BMI 24.0
--- NOTE | 2023-08-14 23:59 | EKG12_ITS ---
Test Reason : CP Blood Pressure : / mmHG Vent. Rate : 080 BPM Atrial Rate : 080 BPM P-R Int : 168 ms QRS Dur : 154 ms QT Int : 410 ms P-R-T Axes : 078 -36 132 degrees QTc Int : 472 ms Normal sinus rhythm Possible Left atrial enlargement Left axis deviation Left bundle branch block Abnormal ECG Confirmed by MERLENE BROWN, BENNY ([id number]), order editor HERON NARAYANAN ([id number]) on 08/16/2023 9:54:59 AM Referred By: CANDELARIO Confirmed By:RENEE BLUNT MD
[2023-08-15] VITALS (10 sets, daily range): BP systolic 101–142; BP diastolic 55–81; PULSE 58–76; RESP 14–20; TEMP 36.1–36.8; O2SAT 95–99; BMI 24.0
--- NOTE | 2023-08-15 | EDS_ITS ---
HPI History of Present Illness Chief Complaint: Chest Pain Informant: patient Narrative Narrative: Patient states about half an hour ago she had a brief episode of left upper chest discomfort that went into her left shoulder/arm. She felt nauseated during it but it all resolved together. No dyspnea, diaphoresis, near-syncope or syncope. She states she was sitting watching TV when it happened. She has a history of CAD, treated medically. She states she was feeling fine all day except for some occasional lightheadedness but no other episodes of this. Symptoms resolved right now. She states at the beginning of the week about 5 days ago, she had a syncopal episode where she felt lightheaded and then woke up on the floor like she hit the left side of her face on the floor. She talked to her radiator fitter and they gave her a Holter monitor that she just turned in the day and did some blood testing. She does not know the results of any of this yet. [facility] Medical History (Updated 08/15/23 @ 03:[address] Carmelo Hodges MD) Atherosclerosis of [place] coronary artery of [place] heart without angina pectoris Abnormal stress test Basal cell carcinoma DANUTA (obstructive sleep apnea) Diverticulosis Depression LBBB (left bundle branch block) Home Medications ?Medication ?Instructions ?Recorded ?Last Taken ?Type cholecalciferol (vitamin D3) 50 2,000 unit PO QDAY supplement 04/14/17 02/21/19 History mcg (2,000 unit) capsule fluoxetine 20 mg capsule 20 mg PO QDAY 04/14/17 02/21/19 History fluticasone propionate 50 1 spray intranasal QDAY PRN Nasal 04/15/17 02/21/19 History mcg/actuation nasal Congestion spray,suspension (Flonase Allergy Relief) levothyroxine 50 mcg tablet 50 mcg PO QDAY 04/15/17 02/21/19 History (Synthroid) ipratropium bromide 21 mcg (0.03 2 spray intranasal BID-TID PRN 04/12/20 Unknown History %) nasal spray allergies multivitamin 1 tab PO DAILY 01/24/21 Unknown History albuterol sulfate 90 mcg/actuation 1 puff inhalation DAILY PRN 04/11/21 Unknown History aerosol inhaler Wheezing estradiol 0.25 mg/0.25 gram (0.1 1 packet transdermal QWEEK 04/11/21 Unknown History %) transdermal gel packet fexofenadine 180 mg tablet 180 mg PO DAILY PRN allergies 04/11/21 Unknown History (Dai Allergy) lansoprazole 30 mg capsule,delayed 60 mg PO DAILY 04/11/21 Unknown History release sacubitril 24 mg-valsartan 26 mg 1 tab PO BID #60 tabs 12/03/22 Unknown Rx tablet (Entresto) atorvastatin 20 mg tablet 20 mg PO DAILY #90 tabs 07/16/23 Unknown Rx carvedilol 6.25 mg tablet 6.25 mg PO BID heart #180 tabs 07/16/23 Unknown Rx Allergy/AdvReac Type Severity Reaction Status Date / Time codeine Allergy Intermediate Itching, Verified 08/14/23 23:55 Hives atropine (From Urised) Allergy Unknown Unknown Verified 08/14/23 23:55 benzoic acid (From Urised) Allergy Unknown Unknown Verified 08/14/23 23:55 diclofenac (From Voltaren) Allergy Unknown Unknown Verified 08/14/23 23:55 hyoscyamine (From Urised) Allergy Unknown Unknown Verified 08/14/23 23:55 methenamine (From Urised) Allergy Unknown Unknown Verified 08/14/23 23:55 methylene blue (From Urised) Allergy Unknown Unknown Verified 08/14/23 23:55 salicylates (From Urised) Allergy Unknown Unknown Verified 08/14/23 23:55 sulfamethoxazole (From Allergy Unknown Unknown Verified 08/14/23 23:55 Septra) trimethoprim (From Septra) Allergy Unknown Unknown Verified 08/14/23 23:55 amoxicillin AdvReac Unknown Unknown Verified 08/14/23 23:55 cephalexin (From Keflex) AdvReac Unknown Unknown Verified 08/14/23 23:55 Penicillins AdvReac Unknown Unknown Verified 08/14/23 23:55 Family History Father Heart disease Heart valve disease Mother Diabetes Myocardial infarction Brother Heart disease Surgical History History of left heart catheterization (LHC) (~02/23/19) Hx of cataract surgery History of nasal surgery History of cholecystectomy History of neck surgery History of carpal tunnel surgery H/O arthroscopic knee surgery History of oophorectomy History of total hysterectomy Social History Smoking Status: Former smoker alcohol intake: current details: rare ROS ROS ED Constitutional Constitutional ED: Denies chills or fever(s) Eyes Eyes: Denies change in vision or diplopia ENT ENT ED: Denies rhinorrhea or sore throat Cardiovascular Cardiovascular: Reports as per HPI, chest pain and radiating jaw, neck or arm pain; Denies palpitations Respiratory/Chest Respiratory/Chest: Denies cough or dyspnea Gastrointestinal Gastrointestinal: Reports nausea; Denies abdominal pain, diarrhea or vomiting Genitourinary Genitourinary ED: Denies dysuria or hematuria Musculoskeletal Musculoskeletal: Denies back pain or neck pain Integumentary Denies abscess or rash Neurologic Neurologic: Denies headache(s), paresthesias or weakness Psychiatric Psychiatric: Reports anxiety and other Details: States she is feeling very anxious ; Denies suicidal thoughts EXAM Physical Exam Const Vital Signs: 08/14/23 23:38 08/14/23 23:53 08/15/23 00:08 Temperature 97.9 F Temperature Source Temporal Pulse Rate 76 Respiratory Rate 15 Respiratory Effort Normal Respiratory Pattern Normal Blood Pressure 148/99 H Blood Pressure Mean 115 Pulse Ox 98 Oxygen Delivery Method Room Air Room Air 08/15/23 00:38 08/15/23 00:38 08/15/23 01:00 Temperature Temperature Source Pulse Rate 73 74 64 Respiratory Rate 20 H 18 15 Respiratory Effort Respiratory Pattern Blood Pressure 142/71 H 142/79 H 122/57 H Blood Pressure Mean 94 100 78 Pulse Ox 97 99 95 Oxygen Delivery Method Room Air Room Air Room Air 08/15/23 02:00 08/15/23 03:00 08/15/23 03:30 Temperature 97.9 F 98.1 F Temperature Source Oral Pulse Rate 67 76 69 Respiratory Rate 15 17 17 Respiratory Effort Respiratory Pattern Blood Pressure 124/64 H 133/69 H 133/69 H Blood Pressure Mean 84 90 90 Pulse Ox 97 95 95 Oxygen Delivery Method Room Air Room Air Positive well nourished and well developed General Appearance ED: well developed and NAD HEENT Reports moist mucous membranes normocephalic and atraumatic Eyes PERRL and EOMs intact bilaterally Neck full ROM and supple Resp normal respiratory effort and clear to auscultation bilaterally Cardio regular rate, regular rhythm and no murmurs Peripheral Pulses: radial pulses present bilateral 2+ GI non-tender and non-distended Auscultation: normoactive bowel sounds Palpation: soft Back/Spine no CVA tenderness General Back: other FROM Extremity normal to inspection General Extremety ED: Negative for edema, pulses abnormal or tenderness General Extremity: Negative for edema or pulses abnormal Neuro oriented x3, CN's II-XII intact bilaterally and no sensory deficits noted Sensorium / Orientation: awake and alert Motor Exam: strength 5/5 throughout Skin no rashes or lesions noted and no wounds Heart Score History: Slightly/Non-Suspicious ECG: Normal (For patient, stable LBBB) Age: >/= 65 years Risk Factors: >/= 3 Risk Factors or History of CAD Troponin: >1 - <3 Normal Limit Score: 5 MDM MDM MDM Narrative Medical decision making narrative: I reviewed some old test on this patient. She had a stress test couple months ago that was negative, she had a heart cath in 2019 that showed mild CAD without any critical stenoses, the worst that she had was a 30% in the left circumflex, and the cardiology team has been treating her medically since then. Patient had a relatively brief episode of chest discomfort, and she is chest pain-free at this time, her EKG shows a stable left bundle branch block. Initial troponin is in the single digits, we repeated this 2 hours later and it went up to 68, just barely out of the normal range. She is still chest pain- free. This is more concerning for her potentially having had unstable angina, at this point not qualifying for an NSTEMI but given her heart score 5, I recommend admission. She is amenable. History & Record Review Additional record(s) reviewed:: Prior outpatient record Lab Data Attestation: I reviewed the patient's lab results. Labs: Laboratory Results - last 24 hr 08/14/23 08/15/23 00:01 02:25 WBC 8.8 RBC 4.17 L Hgb 12.9 Hct 38.4 MCV 92.1 MCH 30.9 MCHC 33.6 RDW Std Deviation 45.4 H RDW Coeff of Susan 13.3 Plt Count 266 MPV 11.0 Immature Gran % (Auto) 0.100 Neut % (Auto) 48.5 Lymph % (Auto) 38.5 [place] % (Auto) 8.9 Eos % (Auto) 3.1 Baso % (Auto) 0.9 Absolute Neuts (auto) 4.3 Absolute Lymphs (auto) 3.39 Nucleated RBC % 0 Sodium 143 Potassium 3.6 Chloride 108 H Carbon Dioxide 27.0 Anion Gap 8 BUN 17 Creatinine 1.04 H Estim Creat Clear Calc 43.75 Est GFR (MDRD) Af Amer 66 Est GFR (MDRD) Non-Af 55 L BUN/Creatinine Ratio 16.3 Glucose 114 H Calcium 8.9 Troponin I High Sens 7 68 H Radiography Diagnostic Testing: Clinical Impression(s) from Imaging Studies Chest X-Ray 08/14/23 00:08 IMPRESSION: No radiographic evidence of acute cardiopulmonary disease. Electronically Signed: Elie Cuello MD at 0:24 EDT Reading Location ID and State: [facility] / [place] Tel , Service support , Rhythm Strip Rhythm Strip: Sinus Rhythm Rate: 80 Ectopy: None EKG Initial EKG: Attestation: I personally reviewed and interpreted this EKG as follows: Interpretation: Sinus Rhythm, No Acute Injury Pattern and LBBB Prior EKG tracings: available for review Prior: Unchanged Management Discussion w/another healthcare provider: Hospitalist Discharge Plan Dx/Rx/DC Orders Clinical Impression: Chest pain, unspecified, Elevated troponin Disposition Disposition: Acute Care [facility]
[2023-08-15 00:23] LABS: Absolute Lymphocyte Count 3.39 X10^3/uL (0.83-4.51); Absolute Neutrophil Count 4.3 X10^3/uL (2.0-7.7); Basophil# 0.08 X10^3/uL; Basophil% 0.9 % (0-1); Eosinophil# 0.27 X10^3/uL; Eosinophils% 3.1 % (0-5); Hematocrit 38.4 % (37-47); Hemoglobin 12.9 g/dL (12.0-15.0); Lymphocyte # 3.39 X10^3/ul (0.83-4.51); Lymphocyte % 38.5 % (19-41); Mean Corp Hgb Conc 33.6 g/dL (32-36); Mean Corpuscular Hgb 30.9 pg (27.0-32.0); Mean Corpuscular Volume 92.1 fL (81-99); Monocyte# 0.78 X10^3/uL; Monocyte% 8.9 % (0-10); NRBC Flagged by Analyzer 0 % (0-5); Neutrophil # 4.27 X10^3/uL (2.7-7.7); Neutrophil % 48.5 % (47-70); Platelet Count 266 K/mm3 (150-450); RBC Distribution Width CV 13.3 % (11.6-14.6); RBC Distribution Width SD 45.4 fl (35.1-43.9); Red Blood Count 4.17 M/mm3 (4.2-5.4); White Blood Count 8.8 K/mm3 (4.4-11.0)
[2023-08-15 00:44] LABS: Anion Gap 8 (5-15); BUN 17 mg/dL (7-18); BUN/Creat Ratio 16.3 RATIO (10-20); Calcium,Total 8.9 mg/dL (8.5-10.1); Chloride 108 mmol/L (98-107); Creatinine, Serum 1.04 mg/dL (0.55-1.02); EST Glomerular Filtration Rate 55 mL/min (>60); Est Glom Filt Rate - Afr Amer 66 mL/min (>60); Estimated Creatinine Clearance 43.75 ml/min; Glucose 114 mg/dL (74-106); Potassium 3.6 mmol/L (3.5-5.1); Sodium Level 143 mmol/L (136-145); Troponin-I HS (w/2H Reflex) 7 pg/mL (3.0-54.0)
[2023-08-15 02:16] LABS: Reflex Troponin-HS? (from REC) Y
[2023-08-15 02:59] LABS: Troponin-I HS 68 pg/mL (3.0-54.0)
--- NOTE | 2023-08-15 03:16 | ED.RN ---
Patient initial troponin was done 08/15/23 0001. Lab has entered the wrong date of 08/14/23, lab notified and states they can not edit the date or time.
--- NOTE | 2023-08-15 03:27 | HP.PCM.HOS_ITS ---
HPI - General General Date of Admission: 08/15/23 Date of Service: 08/15/23 Chief Complaint: Chest pain HPI Narrative MARCELA MILLARD, is a 77 F who presented to [facility] ED on 08/15/2023 after an episode of chest pain at home. Saw patient at bedside in the ED. Patient was sitting up comfortably in bed, conversing normally, in no acute distress. Patient has history of nonobstructive CAD, LBBB, cardiomyopathy and hyperlipidemia and follows with [facility]. Last office visit was on 06/11/2023. Was noted then that patient had a stress test in 11/2022 that was negative. Her last echo was back in 12/2021, showed an EF of 55%, global longitudinal strain and septal motion consistent with IVCD (intraventricular conduction delay), and hypokinetic mid inferoseptal, mid anteroseptal and apex. Last left heart cath was done in 01/2019 and demonstrated nonobstructive coronary arteries. At this office visit, was noted that patient was doing well and no changes were made to her management. However, on Wednesday of this past week patient had a syncopal episode at home. States she felt lightheaded prior to passing out and then woke up on the floor. She talked to the cardiology office and she completed a 24-hour Holter monitor this week that she turned into the office yesterday, does not know the results yet. States that today she was sitting and watching TV when she had a brief episode of left upper chest discomfort that went into the left shoulder and arm. She states the episode lasted about 30 seconds to a minute and then resolved on its own. Patient denies any recurrent episodes of pain since then. Denies any shortness of breath. Denies any fevers or chills. No other acute concerns currently. Vitals in ED notable for mild hypertension, otherwise unremarkable. CBC and BMP unremarkable. Troponin trend 7 > 68, third troponin pending. Chest x-ray was unremarkable. EKG showed normal sinus rhythm with stable left bundle branch block. [facility] Medical History (Updated 08/15/23 @ 03:[address] Carmelo Hodges MD) Atherosclerosis of [place] coronary artery of [place] heart without angina pectoris Abnormal stress test Basal cell carcinoma DANUTA (obstructive sleep apnea) Diverticulosis Depression LBBB (left bundle branch block) Home Medications ?Medication ?Instructions ?Recorded ?Last Taken ?Type cholecalciferol (vitamin D3) 50 2,000 unit PO QDAY supplement 04/14/17 02/21/19 History mcg (2,000 unit) capsule fluoxetine 20 mg capsule 20 mg PO QDAY 04/14/17 02/21/19 History fluticasone propionate 50 1 spray intranasal QDAY PRN Nasal 04/15/17 02/21/19 History mcg/actuation nasal Congestion spray,suspension (Flonase Allergy Relief) levothyroxine 50 mcg tablet 50 mcg PO QDAY 04/15/17 02/21/19 History (Synthroid) ipratropium bromide 21 mcg (0.03 2 spray intranasal BID-TID PRN 04/12/20 Unknown History %) nasal spray allergies multivitamin 1 tab PO DAILY 01/24/21 Unknown History albuterol sulfate 90 mcg/actuation 1 puff inhalation DAILY PRN 04/11/21 Unknown History aerosol inhaler Wheezing estradiol 0.25 mg/0.25 gram (0.1 1 packet transdermal QWEEK 04/11/21 Unknown History %) transdermal gel packet fexofenadine 180 mg tablet 180 mg PO DAILY PRN allergies 04/11/21 Unknown History (Dai Allergy) lansoprazole 30 mg capsule,delayed 30 mg PO DAILY 04/11/21 Unknown History release sacubitril 24 mg-valsartan 26 mg 1 tab PO BID #60 tabs 12/03/22 Unknown Rx tablet (Entresto) carvedilol 6.25 mg tablet 6.25 mg PO BID heart #180 tabs 07/16/23 Unknown Rx atorvastatin 20 mg tablet 20 mg PO QHS 08/15/23 Unknown History sucralfate 1 gram tablet 1 g PO 4X/DAY PRN upset stomach 08/15/23 Unknown History Allergy/AdvReac Type Severity Reaction Status Date / Time codeine Allergy Intermediate Itching, Verified 08/14/23 23:55 Hives atropine (From Urised) Allergy Unknown Unknown Verified 08/14/23 23:55 benzoic acid (From Urised) Allergy Unknown Unknown Verified 08/14/23 23:55 diclofenac (From Voltaren) Allergy Unknown Unknown Verified 08/14/23 23:55 hyoscyamine (From Urised) Allergy Unknown Unknown Verified 08/14/23 23:55 methenamine (From Urised) Allergy Unknown Unknown Verified 08/14/23 23:55 methylene blue (From Urised) Allergy Unknown Unknown Verified 08/14/23 23:55 salicylates (From Urised) Allergy Unknown Unknown Verified 08/14/23 23:55 sulfamethoxazole (From Allergy Unknown Unknown Verified 08/14/23 23:55 Septra) trimethoprim (From Septra) Allergy Unknown Unknown Verified 08/14/23 23:55 amoxicillin AdvReac Unknown Unknown Verified 08/14/23 23:55 cephalexin (From Keflex) AdvReac Unknown Unknown Verified 08/14/23 23:55 Penicillins AdvReac Unknown Unknown Verified 08/14/23 23:55 Family History (Reviewed 06/11/23 @ 13:08 by Leona Hines BIOMEDICAL EQUIPMENT TECHNICIAN, BIOMEDICAL EQUIPMENT TECHNICIAN-C) Father Heart disease Heart valve disease Mother Diabetes Myocardial infarction Brother Heart disease Surgical History (Updated 08/15/23 @ 05:09 by Deanna Red) S/P insertion of spinal cord stimulator History of left heart catheterization (LHC) (~02/23/19) Hx of cataract surgery History of nasal surgery History of cholecystectomy History of neck surgery History of carpal tunnel surgery H/O arthroscopic knee surgery History of oophorectomy History of total hysterectomy Social History Smoking Status: Former smoker alcohol intake: current details: rare ROS Constitutional Constitutional: Denies chills, fatigue or fever(s) Eyes Eyes: Denies change in vision Cardiovascular Cardiovascular: Denies chest pain, dyspnea on exertion, edema, lightheadedness, palpitations, rapid heart rate or syncope Respiratory/Chest Respiratory/Chest: Denies cough or shortness of breath at rest Gastrointestinal Gastrointestinal: Denies abdominal pain, nausea or vomiting Neurologic Neurologic: Denies dizziness, focal weakness or headache(s) Vital Signs Vital Signs Vital Signs: 08/14/23 23:38 08/14/23 23:53 08/15/23 00:08 Temperature 97.9 F Temperature Source Temporal Pulse Rate 76 Respiratory Rate 15 Respiratory Effort Normal Respiratory Pattern Normal Blood Pressure 148/99 H Blood Pressure Mean 115 Pulse Ox 98 Oxygen Delivery Method Room Air Room Air 08/15/23 00:38 08/15/23 00:38 08/15/23 01:00 Temperature Temperature Source Pulse Rate 73 74 64 Respiratory Rate 20 H 18 15 Respiratory Effort Respiratory Pattern Blood Pressure 142/71 H 142/79 H 122/57 H Blood Pressure Mean 94 100 78 Pulse Ox 97 99 95 Oxygen Delivery Method Room Air Room Air Room Air 08/15/23 02:00 Temperature Temperature Source Pulse Rate 67 Respiratory Rate 15 Respiratory Effort Respiratory Pattern Blood Pressure 124/64 H Blood Pressure Mean 84 Pulse Ox 97 Oxygen Delivery Method Room Air Weight Weight: 67.7 kg Body Mass Index (BMI) 24.0 Physical Exam Const alert, oriented x3, no apparent distress and average body habitus Constitutional Narrative: Pleasant elderly female, sitting up comfortably in bed, conversing normally, in no acute distress. General Appearance: cooperative and comfortable HEENT normocephalic, head/scalp atraumatic, hearing grossly normal bilaterally, nasal mucous membranes and turbinates normal and moist oral mucous membranes Eyes PERRL, EOMs intact bilaterally and conjunctivae normal Neck full ROM Chest inspection of chest normal Resp normal respiratory effort, normal air movement, no use of accessory muscles and clear to auscultation bilaterally Cardio regular rate, regular rhythm, no murmurs and peripheral pulses 2+ throughout GI normal to inspection, nondistended, normoactive bowel sounds, soft to palpation, non-tender and non-distended Back/Spine normal ROM Extremity normal to inspection, full ROM and no pedal edema Skin no rashes or lesions noted Neuro moves all extremities and no focal motor deficits Speech: speech normal Psych mental status grossly normal Results Lab / Micro Data 08/14/23 00:01 08/14/23 00:01 Labs: Laboratory Results - last 24 hr 08/14/23 00:01: WBC 8.8, RBC 4.17 L, Hgb 12.9, Hct 38.4, MCV 92.1, MCH 30.9, MCHC 33.6, RDW Std Deviation 45.4 H, RDW Coeff of Susan 13.3, Plt Count 266, MPV 11.0, Immature Gran % (Auto) 0.100, Neut % (Auto) 48.5, Lymph % (Auto) 38.5, [place] % (Auto) 8.9, Eos % (Auto) 3.1, Baso % (Auto) 0.9, Absolute Neuts (auto) 4.3, Absolute Lymphs (auto) 3.39, Nucleated RBC % 0, Sodium 143, Potassium 3.6, Chloride 108 H, Carbon Dioxide 27.0, Anion Gap 8, BUN 17, Creatinine 1.04 H, Estim Creat Clear Calc 43.75, Est GFR (MDRD) Af Amer 66, Est GFR (MDRD) Non-Af 55 L, BUN/Creatinine Ratio 16.3, Glucose 114 H, Calcium 8.9, Troponin I High Sens 7 08/15/23 02:25: Troponin I High Sens 68 H Rhythm Strip Rhythm Strip: Sinus Rhythm Rate: 80 Ectopy: None Imaging Radiology Impression Chest X-Ray 08/14/23 00:08 IMPRESSION: No radiographic evidence of acute cardiopulmonary disease. Electronically Signed: Elie Cuello MD at 0:24 EDT , Assessment & Plan Assessment/Plan (1) Chest pain, unspecified: (2) Elevated troponin: PLAN: Plan Patient is a 77-year-old female who presented [facility] ED on 08/15/2023 after an episode of chest pain at home. 1. Chest pain, concern for NSTEMI ? Admit under observation status to PCU. Cardiology consulted. Troponin trend 7 > 68 in ED, third troponin pending. Short episode of chest pain could be considered unstable angina but episode resolved quickly and patient has known history of nonobstructive CAD with stress test in 11/2022 that was negative. Will hold on starting heparin drip for now. Will continue her home atorvastatin, carvedilol and Entresto. Echo ordered. Appreciate cardiology recommendations. 2. Recent syncopal episode ? Patient reported syncopal episode at home on Tuesday 08/08. Completed outpatient 24-hour Holter monitor, results not available yet. EKG here with normal sinus rhythm with known left bundle branch block, no ST changes. Continue cardiac monitoring. Cardiology consulted as above. 3. History of nonobstructive CAD, nonischemic cardiomyopathy, hypertension, hyperlipidemia ? Follows with [facility]. See HPI for further details on history. Continue home medications as noted above. Chronic medical conditions: ? GERD: Continue home PPI and sucralfate. ? Anxiety/depression: Stable. Continue home fluoxetine. ? Hypothyroidism: TSH normal on 08/10. Continue home Synthroid. ? Allergies: Continue home medications. DVT prophylaxis: Lovenox CODE STATUS: Full code, verified Expected disposition: Home, 1 to 2 days Total clinical time spent by myself addressing the patient's medical issues, reviewing all the data, and collaborating with patient's care team: 55 minutes. Charges/Coding Visit Charges Inpatient E&M: 51877 Init Hosp L2
--- NOTE | 2023-08-15 04:15 | ECHOD_ITS ---
Reason For Study: CHEST PAIN Procedure This was a 2D Doppler, Color Flow transthoracic echocardiogram. Exam performed portable in patient room. Left Ventricle Normal LV size. The left ventricular ejection fraction is 50 %. Stage 1 diastolic dysfunction. Septal motion consistent with bundle branch block. Septal [place] : Hypokinetic. Right Ventricle Normal RV size. Normal systolic function. Atria Normal left atrium. Normal right atrium. Mitral Valve Normal mitral valve. Tricuspid Valve Normal tricuspid valve. Aortic Valve Trisinus/trileaflet aortic valve. Mild (1+) aortic valve insufficiency. Pulmonic Valve Normal pulmonic valve. Great Vessels Normal aortic root. The pulmonary artery is normal size. Normal inferior vena cava. Pericardium/Pleural No pericardial effusion. MMode/2D Measurements & Calculations LVIDd: 4.3 cm IVSd: 1.6 cm LVOT diam: 2.0 cm LVIDs: 3.4 cm LVPWd: 0.97 cm LVOT area: 3.2 cm2 RVDd: 2.7 cm FS: 21.1 % Ao root diam: 2.9 cm LAV(MOD-bp): 34.3 ml LVAd ap4: 24.4 cm2 LAV(MOD-bp) Indexed: 19.4 ml/m2 LVLd ap4: 7.3 cm LAV(MOD-sp2): 41.9 ml EDV(MOD-sp4): 64.8 ml LAV(MOD-sp4): 28.0 ml EDV(sp4-el): 69.3 ml LVAs ap4: 16.4 cm2 LVLs ap4: 6.2 cm ESV(MOD-sp4): 35.6 ml ESV(sp4-el): 37.2 ml EF(MOD-sp4): 45.1 % EF(sp4-el): 46.2 % LVAd ap2: 23.8 cm2 SV(MOD-sp4): 29.2 ml SV(MOD-sp2): 30.0 ml LVLd ap2: 7.1 cm EDV(MOD-sp2): 62.8 ml EDV(sp2-el): 67.1 ml LVAs ap2: 15.2 cm2 LVLs ap2: 5.9 cm ESV(MOD-sp2): 32.7 ml ESV(sp2-el): 33.1 ml EF(MOD-sp2): 47.9 % SV(sp4-el): 32.0 ml LA dimension(2D): 4.0 cm LA A4 area: 12.6 cm2 RA A4 area: 10.0 cm2 TAPSE: 2.0 cm Time Measurements MV dec time: 0.37 sec Doppler Measurements & Calculations MV E max [place]: 57.0 cm/sec Lat Peak E' [place]: 4.6 cm/sec Med Peak E' [place]: 4.7 cm/sec MV A max [place]: 91.2 cm/sec E/E' lat: 12.3 E/E' med: 12.1 MV E/A: 0.63 Ao V2 max: 148.1 cm/sec AI max [place]: 331.7 cm/sec MV dec slope: 154.2 cm/sec2 Ao max P.8 mmHg AI max P.0 mmHg Ao V2 mean: 102.6 cm/sec Ao mean P.8 mmHg AI dec slope: 114.5 cm/sec2 Ao V2 VTI: 34.5 cm AI P1/2t: 848.5 msec AV (velocity ratio): 0.62 CHACHO(I,D): 2.0 cm2 CHACHO(V,D): 1.8 cm2 LV V1 max: 85.4 cm/sec SV(LVOT): 67.5 ml PA V2 max: 94.0 cm/sec LV V1 max P.9 mmHg PA max PG (full): 0.82 mmHg LV V1 mean P.5 mmHg LV V1 mean: 58.0 cm/sec LV V1 VTI: 21.4 cm ECHO/Echo Complete Interpretation Summary Normal LV size. The left ventricular ejection fraction is 50 %. Stage 1 diastolic dysfunction. Septal motion consistent with bundle branch block. Ordering Physician: Ulises Rajan Referring Physician: Jessica Forrest M.D. Performed By: Ana Mueller RDCS
--- NOTE | 2023-08-15 04:17 | EKG12_ITS ---
Test Reason : AM EKG Blood Pressure : / mmHG Vent. Rate : 058 BPM Atrial Rate : 058 BPM P-R Int : 162 ms QRS Dur : 152 ms QT Int : 512 ms P-R-T Axes : 008 -39 099 degrees QTc Int : 502 ms Atrial-sensed ventricular-paced rhythm Abnormal ECG When compared with ECG of 15-AUG-2023 04:38, MANUAL COMPARISON REQUIRED, DATA IS UNCONFIRMED Confirmed by BRICE BROWN, LILIANA ([id number]), editor newspaper HERON NARAYANAN ([id number]) on 08/17/2023 9:26:45 AM Referred By: ZHANE Confirmed By:LILIANA NARVAEZ MD
[2023-08-15] MEDS: Levothyroxine 50 MCG Tablet PO (05:56)
[2023-08-15 06:18] LABS: Hematocrit 35.3 % (37-47); Hemoglobin 11.9 g/dL (12.0-15.0); Mean Corp Hgb Conc 33.7 g/dL (32-36); Mean Corpuscular Hgb 30.7 pg (27.0-32.0); Mean Corpuscular Volume 91.2 fL (81-99); Mean Platelet Vol. 10.6 fl (6.2-12.0); Platelet Count 221 K/mm3 (150-450); RBC Distribution Width CV 13.2 % (11.6-14.6); RBC Distribution Width SD 43.7 fl (35.1-43.9); Red Blood Count 3.87 M/mm3 (4.2-5.4)
[2023-08-15 06:40] LABS: Anion Gap 4 (5-15); BUN 17 mg/dL (7-18); BUN/Creat Ratio 19.2 RATIO (10-20); Calcium,Total 8.8 mg/dL (8.5-10.1); Chloride 111 mmol/L (98-107); Creatinine, Serum 0.88 mg/dL (0.55-1.02); EST Glomerular Filtration Rate 66 mL/min (>60); Est Glom Filt Rate - Afr Amer 80 mL/min (>60); Estimated Creatinine Clearance 51.71 ml/min; Glucose 107 mg/dL (74-106); Potassium 3.6 mmol/L (3.5-5.1); Sodium Level 143 mmol/L (136-145); Troponin-I HS 105 pg/mL (3.0-54.0)
[2023-08-15] MEDS: Multivitamins,Therapeutic Tablet 1 TABLET PO (09:11)
[2023-08-15] MEDS: Carvedilol 6.25 MG Tablet PO ×2 (09:11→20:55)
[2023-08-15] MEDS: FLUoxetine 20 MG Capsule PO (09:11)
[2023-08-15] MEDS: Pantoprazole Sodium 40 MG Tablet PO (09:11)
[2023-08-15] MEDS: Cholecalciferol (VIT D3) 25 MCG TABLET (1,000 UNITS) 50 MCG PO (09:11)
[2023-08-15] MEDS: SACUBITRIL/VALSARTAN 24/26 MG TABLET 1 EACH PO ×2 (09:11→20:55)
[2023-08-15] MEDS: Enoxaparin 40 MG/0.4 ML Syringe SC (09:12)
--- NOTE | 2023-08-15 10:17 | PN_ITS ---
Subjective Subjective Patient seen and examined. She had no active complaints today. She did not have any more chest pain overnight. Review of systems is otherwise negative. Her troponin trended up slightly to 105. Objective Data Objective Data Vital Signs: Vital Signs Temp Pulse Resp BP Pulse Ox O2 Del Method 97.8 F 62 18 125/55 H 98 Room Air 08/15/23 09:07 08/15/23 09:07 08/15/23 09:07 08/15/23 09:07 08/15/23 09:07 08/15/23 09:07 Oxygen Delivery Method Room Air Weight: 148 lb 9.6 oz Body Mass Index (BMI) 24.0 Lab / Micro Data 08/15/23 05:54 08/15/23 05:54 Labs: Laboratory Results - last 24 hr 08/14/23 00:01: WBC 8.8, RBC 4.17 L, Hgb 12.9, Hct 38.4, MCV 92.1, MCH 30.9, MCHC 33.6, RDW Std Deviation 45.4 H, RDW Coeff of Susan 13.3, Plt Count 266, MPV 11.0, Immature Gran % (Auto) 0.100, Neut % (Auto) 48.5, Lymph % (Auto) 38.5, [place] % (Auto) 8.9, Eos % (Auto) 3.1, Baso % (Auto) 0.9, Absolute Neuts (auto) 4.3, Absolute Lymphs (auto) 3.39, Nucleated RBC % 0, Sodium 143, Potassium 3.6, Chloride 108 H, Carbon Dioxide 27.0, Anion Gap 8, BUN 17, Creatinine 1.04 H, Estim Creat Clear Calc 43.75, Est GFR (MDRD) Af Amer 66, Est GFR (MDRD) Non-Af 55 L, BUN/Creatinine Ratio 16.3, Glucose 114 H, Calcium 8.9, Troponin I High Sens 7 08/15/23 02:25: Troponin I High Sens 68 H 08/15/23 05:54: WBC 7.0, RBC 3.87 L, Hgb 11.9 L, Hct 35.3 L, MCV 91.2, MCH 30.7, MCHC 33.7, RDW Std Deviation 43.7, RDW Coeff of [place] 13.2, Plt Count 221, MPV 10.6, Sodium 143, Potassium 3.6, Chloride 111 H, Carbon Dioxide 28.0, Anion Gap 4 L, BUN 17, Creatinine 0.88, Estim Creat Clear Calc 51.71, Est GFR (MDRD) Af Amer 80, Est GFR (MDRD) Non-Af 66, BUN/Creatinine Ratio 19.2, Glucose 107 H, Calcium 8.8, Troponin I High Sens 105 H Radiography Diagnostic Testing: Radiology Impression Chest X-Ray 08/14/23 00:08 IMPRESSION: No radiographic evidence of acute cardiopulmonary disease. Electronically Signed: Elie Cuello MD at 0:24 EDT , Rhythm Strip Rhythm Strip: Sinus Rhythm Rate: 80 Ectopy: None Physical Exam Const alert, oriented x3 and no apparent distress General Appearance: cooperative and well developed HEENT normocephalic, head/scalp atraumatic, moist oral mucous membranes and oropharynx normal Eyes PERRL and EOMs intact bilaterally Neck no lymphadenopathy and supple Lymph Lymphatic: no lymphadenopathy noted and no lymphedema noted Resp normal respiratory effort, normal air movement and clear to auscultation bilaterally Cardio regular rate, regular rhythm, S1 normal heart sound, S2 normal heart sound and no murmurs GI normal to inspection, nondistended, normoactive bowel sounds, soft to palpation, non-tender and non-distended Extremity normal capillary refill, no clubbing, cyanosis or edema and no calf tenderness General Extremity: no tenderness to palpation of joints or extremities Skin General Skin Exam: no breakdown Neuro CN's II-XII intact bilaterally, no focal motor deficits, no sensory deficits noted and deep tendon reflexes 2+ bilaterally Motor Exam: strength 5/5 throughout and general weakness Psych thought process normal, cooperative and affect normal Appearance: appropriate Assessment & Plan Assessment/Plan (1) Elevated troponin: (2) Chest pain, unspecified: (3) Syncope and collapse: PLAN: Plan #Elevated troponin * Patient admitted with a complaint of mild chest pain which went into her left arm. It was reported was instituted up to a peak of 125. * she is on therapeutic lovenox. Of note patient also had an episode of syncope about a week ago and had a 24-hour Holter monitoring ordered by cardiology. It has not been read yet * on PO aspirin and high intensity statin. * cardiology consulted. Await rec's * will get D dimer also. * SL nitroglycerin prn * will defer further workup re stress test or cath to cardiology. * # Nonischemic cardiomyopathy * She did have a cardiac cath in January 2019 which showed nonobstructive coronary arteries. * Also had a stress test in November 2022 which was negative. 2D echo from December 2021 showed EF of 55% with global longitudinal strain with septal motion consistent with an right ventricular conduction delay. * On Entresto and carvedilol as well as statins. #Hypothyroidism: On Synthroid #GERD: On PPI Hyperlipidemia: Statin DVT prophylaxis: Currently on therapeutic Lovenox started due to concerns for non-STEMI in light of troponin elevation. Charges/Coding Visit Charges Inpatient E&M: 51674 Subs Hosp L2
[2023-08-15 11:00] LABS: D-Dimer Quantitative (DVT/PE) 0.31 FEU/ug/m (0.27-0.49)
--- NOTE | 2023-08-15 18:04 | PCM.CONS.C ---
Assessment & Plan Assessment/Plan (1) Elevated troponin: (2) Chest pain, unspecified: QUALIFIERS: Chest pain type: unspecified Qualified Code(s): R07.9 - Chest pain, unspecified (3) Dizziness: (4) Syncope and collapse: PLAN: Plan The syncope appears to be orthostatic. Will check her Holter results. Telemetry overnight has been unremarkable. Discussed further treatment options with the patient in detail. We discussed stress testing versus coronary angiography. We could go either way in her case. After discussing things in detail we decided to go with coronary angiography tomorrow. Would also recommend a 2D echo. Advised patient to get up slowly from a sitting or lying position. HPI Consult Data Date of Consult: 08/15/23 HPI Narrative Reason for Consultation: Chest pain, borderline elevated troponin HPI Narrative: MARCELA MILLARD, is a 77 F who presents with chest pain that lasted about a minute while watching TV. She has history of nonobstructive coronary artery disease with last angiogram done in 2019. Chest pain started on the left shoulder and moved to her chest. She also had some epigastric discomfort and nausea. Patient's high-sensitivity troponin levels were 7, 68, 105. Last Wednesday patient had a fall/possible syncopal episode. She heard a car outside her house and got up from sitting position to go to the window to take it out. The next thing she remembers is finding herself on the floor. She hurt her left shoulder due to the fall. She had Holter monitoring done since then. We do not have the results of that. She had a stress test last fall which did not reveal any ischemia. Review of systems: All systems reviewed are also negative except as in HPI PENDING SALE TO [facility] Medical History (Updated 08/15/23 @ 18:[address] Kristin Jackson MD) Atherosclerosis of [place] coronary artery of [place] heart without angina pectoris Abnormal stress test Basal cell carcinoma DANUTA (obstructive sleep apnea) Diverticulosis Depression LBBB (left bundle branch block) Home Medications ?Medication ?Instructions ?Recorded ?Last Taken ?Type cholecalciferol (vitamin D3) 50 2,000 unit PO QDAY supplement 04/14/17 02/21/19 History mcg (2,000 unit) capsule fluoxetine 20 mg capsule 20 mg PO QDAY 04/14/17 02/21/19 History fluticasone propionate 50 1 spray intranasal QDAY PRN Nasal 04/15/17 02/21/19 History mcg/actuation nasal Congestion spray,suspension (Flonase Allergy Relief) levothyroxine 50 mcg tablet 50 mcg PO QDAY 04/15/17 02/21/19 History (Synthroid) ipratropium bromide 21 mcg (0.03 2 spray intranasal BID-TID PRN 04/12/20 Unknown History %) nasal spray allergies multivitamin 1 tab PO DAILY 01/24/21 Unknown History albuterol sulfate 90 mcg/actuation 1 puff inhalation DAILY PRN 04/11/21 Unknown History aerosol inhaler Wheezing estradiol 0.25 mg/0.25 gram (0.1 1 packet transdermal QWEEK 04/11/21 Unknown History %) transdermal gel packet fexofenadine 180 mg tablet 180 mg PO DAILY PRN allergies 04/11/21 Unknown History (Dai Allergy) lansoprazole 30 mg capsule,delayed 30 mg PO DAILY 04/11/21 Unknown History release sacubitril 24 mg-valsartan 26 mg 1 tab PO BID #60 tabs 12/03/22 Unknown Rx tablet (Entresto) carvedilol 6.25 mg tablet 6.25 mg PO BID heart #180 tabs 07/16/23 Unknown Rx atorvastatin 20 mg tablet 20 mg PO QHS 08/15/23 Unknown History sucralfate 1 gram tablet 1 g PO 4X/DAY PRN upset stomach 08/15/23 Unknown History Allergy/AdvReac Type Severity Reaction Status Date / Time codeine Allergy Intermediate Itching, Verified 08/14/23 23:55 Hives atropine (From Urised) Allergy Unknown Unknown Verified 08/14/23 23:55 benzoic acid (From Urised) Allergy Unknown Unknown Verified 08/14/23 23:55 diclofenac (From Voltaren) Allergy Unknown Unknown Verified 08/14/23 23:55 hyoscyamine (From Urised) Allergy Unknown Unknown Verified 08/14/23 23:55 methenamine (From Urised) Allergy Unknown Unknown Verified 08/14/23 23:55 methylene blue (From Urised) Allergy Unknown Unknown Verified 08/14/23 23:55 salicylates (From Urised) Allergy Unknown Unknown Verified 08/14/23 23:55 sulfamethoxazole (From Allergy Unknown Unknown Verified 08/14/23 23:55 Septra) trimethoprim (From Septra) Allergy Unknown Unknown Verified 08/14/23 23:55 amoxicillin AdvReac Unknown Unknown Verified 08/14/23 23:55 cephalexin (From Keflex) AdvReac Unknown Unknown Verified 08/14/23 23:55 Penicillins AdvReac Unknown Unknown Verified 08/14/23 23:55 Family History (Reviewed 06/11/23 @ 13:08 by Leona Hines GROUNDS AND NURSERY SPECIALIST, GROUNDS AND NURSERY SPECIALIST-C) Father Heart disease Heart valve disease Mother Diabetes Myocardial infarction Brother Heart disease Surgical History S/P insertion of spinal cord stimulator History of left heart catheterization (LHC) (~02/23/19) Hx of cataract surgery History of nasal surgery History of cholecystectomy History of neck surgery History of carpal tunnel surgery H/O arthroscopic knee surgery History of oophorectomy History of total hysterectomy Social History Smoking Status: Former smoker alcohol intake: current details: rare Physical Exam Const alert and oriented x3 HEENT normocephalic Eyes no scleral icterus Resp normal respiratory effort Cardio regular rate Skin no rashes or lesions noted Risk Stratification Risk Stratification Applicable: No Charges/Coding Visit Charges Inpatient E&M: 77575 Init Hosp L2 Objective Data Vital Signs: Vital Signs Temp Pulse Resp BP Pulse Ox O2 Del Method 98 F 58 L 18 132/73 H 96 Room Air 08/15/23 15:09 08/15/23 15:09 08/15/23 15:09 08/15/23 15:09 08/15/23 15:09 08/15/23 15:09 Oxygen Delivery Method Room Air Weight: 148 lb 9.6 oz Body Mass Index (BMI) 24.0 Lab / Micro Data 08/15/23 05:54 08/15/23 05:54 Labs: Laboratory Results - last 24 hr 08/14/23 00:01: WBC 8.8, RBC 4.17 L, Hgb 12.9, Hct 38.4, MCV 92.1, MCH 30.9, MCHC 33.6, RDW Std Deviation 45.4 H, RDW Coeff of Susan 13.3, Plt Count 266, MPV 11.0, Immature Gran % (Auto) 0.100, Neut % (Auto) 48.5, Lymph % (Auto) 38.5, [place] % (Auto) 8.9, Eos % (Auto) 3.1, Baso % (Auto) 0.9, Absolute Neuts (auto) 4.3, Absolute Lymphs (auto) 3.39, Nucleated RBC % 0, Sodium 143, Potassium 3.6, Chloride 108 H, Carbon Dioxide 27.0, Anion Gap 8, BUN 17, Creatinine 1.04 H, Estim Creat Clear Calc 43.75, Est GFR (MDRD) Af Amer 66, Est GFR (MDRD) Non-Af 55 L, BUN/Creatinine Ratio 16.3, Glucose 114 H, Calcium 8.9, Troponin I High Sens 7 08/15/23 02:25: Troponin I High Sens 68 H 08/15/23 05:54: WBC 7.0, RBC 3.87 L, Hgb 11.9 L, Hct 35.3 L, MCV 91.2, MCH 30.7, MCHC 33.7, RDW Std Deviation 43.7, RDW Coeff of Susan 13.2, Plt Count 221, MPV 10.6, Sodium 143, Potassium 3.6, Chloride 111 H, Carbon Dioxide 28.0, Anion Gap 4 L, BUN 17, Creatinine 0.88, Estim Creat Clear Calc 51.71, Est GFR (MDRD) Af Amer 80, Est GFR (MDRD) Non-Af 66, BUN/Creatinine Ratio 19.2, Glucose 107 H, Calcium 8.8, Troponin I High Sens 105 H 08/15/23 10:30: D-Dimer Quant (PE/DVT) 0.31 Rhythm Strip Rhythm Strip: Sinus Rhythm Rate: 80 Ectopy: None Cardiology Labs/Tests 08/14/23 00:01: WBC 8.8, RBC 4.17 L, Hgb 12.9, Hct 38.4, MCV 92.1, MCH 30.9, MCHC 33.6, Plt Count 266, MPV 11.0, Immature Gran % (Auto) 0.100, Neut % (Auto) 48.5, Lymph % (Auto) 38.5, [place] % (Auto) 8.9, Eos % (Auto) 3.1, Baso % (Auto) 0.9, Absolute Neuts (auto) 4.3, Nucleated RBC % 0, Sodium 143, Potassium 3.6, Chloride 108 H, Carbon Dioxide 27.0, Anion Gap 8, BUN 17, Creatinine 1.04 H, Est GFR (MDRD) Af Amer 66, Est GFR (MDRD) Non-Af 55 L, BUN/Creatinine Ratio 16.3, Glucose 114 H, Calcium 8.9 08/15/23 05:54: WBC 7.0, RBC 3.87 L, Hgb 11.9 L, Hct 35.3 L, MCV 91.2, MCH 30.7, MCHC 33.7, Plt Count 221, MPV 10.6, Sodium 143, Potassium 3.6, Chloride 111 H, Carbon Dioxide 28.0, Anion Gap 4 L, BUN 17, Creatinine 0.88, Est GFR (MDRD) Af Amer 80, Est GFR (MDRD) Non-Af 66, BUN/Creatinine Ratio 19.2, Glucose 107 H, Calcium 8.8 08/15/23 10:30: D-Dimer Quant (PE/DVT) 0.31 Rhythm: EKG: ECHO: Stress Test: Cardiac Cath: PCI: CT Surgery: Holter monitor: EPS: PPM: CXR: Chest CT Scan: Radiography Diagnostic Testing: Radiology Impression Chest X-Ray 08/14/23 00:08 IMPRESSION: No radiographic evidence of acute cardiopulmonary disease. Electronically Signed: Elie Cuello MD at 0:24 EDT ,
[2023-08-15] MEDS: Atorvastatin Calcium 20 MG Tablet PO (20:55)
[2023-08-16] VITALS (10 sets, daily range): BP systolic 88–131; BP diastolic 47–69; PULSE 55–66; RESP 14–16; TEMP 36.4–36.8; O2SAT 93–96
--- NOTE | 2023-08-16 05:55 | EKG12_ITS ---
Test Reason : CP ADMIT Blood Pressure : / mmHG Vent. Rate : 060 BPM Atrial Rate : 060 BPM P-R Int : 178 ms QRS Dur : 158 ms QT Int : 472 ms P-R-T Axes : 069 -28 110 degrees QTc Int : 472 ms Normal sinus rhythm Left bundle branch block Abnormal ECG When compared with ECG of 14-AUG-2023 23:39, MANUAL COMPARISON REQUIRED, DATA IS UNCONFIRMED Confirmed by BRICE BROWN, LILIANA ([id number]), editorial director HERON NARAYANAN ([id number]) on 08/17/2023 9:27:05 AM Referred By: ZHANE Confirmed By:LILIANA NARVAEZ MD
[2023-08-16] MEDS: SACUBITRIL/VALSARTAN 24/26 MG TABLET 1 EACH PO (06:21)
[2023-08-16] MEDS: Levothyroxine 50 MCG Tablet PO (06:21)
[2023-08-16] MEDS: Carvedilol 6.25 MG Tablet PO (06:21)
[2023-08-16 06:22] LABS: Absolute Lymphocyte Count 2.27 X10^3/uL (0.83-4.51); Absolute Neutrophil Count 2.9 X10^3/uL (2.0-7.7); Basophil# 0.07 X10^3/uL; Basophil% 1.2 % (0-1); Eosinophil# 0.17 X10^3/uL; Eosinophils% 2.8 % (0-5); Hematocrit 35.9 % (37-47); Lymphocyte # 2.27 X10^3/ul (0.83-4.51); Lymphocyte % 37.7 % (19-41); Mean Corp Hgb Conc 33.4 g/dL (32-36); Mean Corpuscular Hgb 30.7 pg (27.0-32.0); Mean Corpuscular Volume 91.8 fL (81-99); Mean Platelet Vol. 10.8 fl (6.2-12.0); Monocyte# 0.56 X10^3/uL; Monocyte% 9.3 % (0-10); NRBC Flagged by Analyzer 0 % (0-5); Neutrophil # 2.94 X10^3/uL (2.7-7.7); Neutrophil % 48.8 % (47-70); Platelet Count 209 K/mm3 (150-450); RBC Distribution Width CV 13.3 % (11.6-14.6); RBC Distribution Width SD 44.5 fl (35.1-43.9); Red Blood Count 3.91 M/mm3 (4.2-5.4)
[2023-08-16 06:49] LABS: Anion Gap 7 (5-15); BUN 18 mg/dL (7-18); BUN/Creat Ratio 21.6 RATIO (10-20); Calcium,Total 9.2 mg/dL (8.5-10.1); Chloride 109 mmol/L (98-107); Creatinine, Serum 0.83 mg/dL (0.55-1.02); EST Glomerular Filtration Rate 71 mL/min (>60); Est Glom Filt Rate - Afr Amer 86 mL/min (>60); Estimated Creatinine Clearance 54.82 ml/min; Glucose 86 mg/dL (74-106); Sodium Level 141 mmol/L (136-145)
--- NOTE | 2023-08-16 09:16 | CASEMGMT ---
Insurance review for hospitals In-network with [employer] MCR PPO insurance if transfer is recommended is as follows: [facility], [facility], [facility], [facility], [facility] ([facility]), [facility], [facility], and . Kesha Neves, Discharge Planning Asst.
--- NOTE | 2023-08-16 10:41 | CL.D_ITS ---
Patient Name: MARCELA MILLARD Study Date: 08/16/2023 Performing: David Jackson MD Ht: 66 inches 167.64 cm : 1945 Wt: 148.59 lbs 67.4 kg Age: 77 Gender: female BSA: 1.76 PROCEDURE(S) PERFORMED [id number]-([id number])LHC/COR/LV CLINICAL PROFILE AND INDICATIONS Indications: Chest pain, Elevated troponin, syncope Heart Failure: None CONCLUSIONS Non obstructive coronary disease. LVEF is 55%. No significant aortic stenosis or mitral regurgitation RECOMMENDATIONS DESCRIPTION OF PROCEDURE The patient arrived to the procedure lab. The risks and benefits of the procedure as well as a full description of our services here and current unavailability of surgical backup were fully explained to the patient and/or their significant other prior to the catheterization. The Timeout was completed, verifying the correct patient and procedure. The patient's procedural site was prepped and draped in the usual fashion. Local anesthetic was given subcutaneously to right radial region with Lidocaine 2%. Using a modified Seldinger technique, arterial access was obtained via the right radial artery, a 6Fr sheath was inserted. LV to AO pullback pressures were then recorded. Left Coronary Artery selective angiography was performed in multiple views using a 5 Fr. JL3.5 catheter. Left Ventriculography was performed in AMATO projection using a 5 Fr. jr 4. Right Coronary Artery selective angiography was then performed in multiple views using a 5 Fr. JR 4 catheter.The arterial sheath was pulled and a TR Band was applied for hemostasis 8 ml of air CORONARY ANGIOGRAPHY DOMINANCE: Right Dominant LEFT HEART ASSESSMENT Left Ventricular Ejection Fraction: by LV Gram 55 % Normal LV wall motion LEFT MAIN: Mild luminal irregularities LEFT ANTERIOR DESCENDING ARTERY: Mild luminal irregularities CIRCUMFLEX ARTERY: MID CIRC: 30 % Stenosis RIGHT CORONARY ARTERY: Mild luminal irregularities VALVE FINDINGS: No Aortic Valve Stenosis No Mitral Insufficiency COMPLICATIONS No Complications PROCEDURE MEDICATIONS Fentanyl 50 mcg IV Versed 1 mg IV Oxygen: 2 L/min via nasal cannula Aspirin (325mg) 1 Tabs PO @ 08/16/2023 09:52:21 Heparin given IA 08/16/2023 10:16:13 Verapamil 2.5mg, Ntg 100mcgs, 3000 units of Heparin given IA 08/16/2023 10:16:13 IV Fluids: .9 NaCl IV started @ 50 ml/hr 08/16/2023 09:55:53 SUMMARY OF HEMODYNAMIC DATA Time AIR REST ECG 09:55:03 LV 110/-1, 5 10:18:51 LV 110/-3, 4 10:19:00 LV 103/-5, 3 10:19:15 LVp 105/-2, 4 10:19:18 AOp 116/60 (81) 10:19:25 AO 102/57 (77) SA 10:19:46 LV 125/-2, 6 10:24:04 LV 122/-2, 6 10:24:12 LV 120/-1, 5 10:25:02 LV 108/0, 4 10:25:11 AO 117/62 (88) 10:26:10 10:38:29 Signed By David Jackson MD On 08/16/2023 10:40:54 David Jackson MD
[2023-08-16] MEDS: 0.9% Normal Saline (1000mL) 1,000 ML 125 ML IV (11:02)
--- NOTE | 2023-08-16 11:45 | CASEMGMT ---
Met with patient to complete MATHIAS form. MATHIAS form explained to patient who voiced understanding and signed form. Original form placed in pt?s chart and copy provided to patient. Kesha Neves, Discharge Planning Asst
--- NOTE | 2023-08-16 13:01 | PCM.DC.SUM ---
Providers Date of Admission: 08/15/23 Date of Discharge: 08/16/23 Primary Care Physician: Dr. Jessica Forrest MD Consultations 08/15/23 04:15 Consult: Cardiology Routine Consulting Provider: Kristin Jackson Reason for Consult: chest pain, concern for NSTEMI EMERGENT Consult: No MD Notified: Yes Date Notified: 08/15/23 Time Notified: 06:32 Method of Notification: Text Reason For Visit: CHEST PAIN Diagnosis Discharge Diagnosis (1) Elevated troponin: Status: Acute Code(s): R79.89 - Other specified abnormal findings of blood chemistry (2) Chest pain, unspecified: Status: Acute Code(s): R07.9 - Chest pain, unspecified Qualifiers: Chest pain type: unspecified Qualified Code(s): R07.9 - Chest pain, unspecified (3) Dizziness: Status: Acute Code(s): R42 - Dizziness and giddiness (4) Syncope and collapse: Status: Acute Code(s): R55 - Syncope and collapse Medications at Discharge Home Medications cholecalciferol (vitamin D3) 50 mcg (2,000 unit) capsule 2,000 unit PO QDAY supplement 04/14/17 fluoxetine 20 mg capsule 20 mg PO QDAY 04/14/17 fluticasone propionate 50 mcg/actuation nasal spray,suspension (Flonase Allergy Relief) 1 spray intranasal QDAY PRN Nasal Congestion 04/15/17 levothyroxine 50 mcg tablet (Synthroid) 50 mcg PO QDAY 04/15/17 ipratropium bromide 21 mcg (0.03 %) nasal spray 2 spray intranasal BID-TID PRN allergies 04/12/20 multivitamin 1 tab PO DAILY 01/24/21 albuterol sulfate 90 mcg/actuation aerosol inhaler 1 puff inhalation DAILY PRN Wheezing 04/11/21 estradiol 0.25 mg/0.25 gram (0.1 %) transdermal gel packet 1 packet transdermal QWEEK 04/11/21 fexofenadine 180 mg tablet (Dai Allergy) 180 mg PO DAILY PRN allergies 04/11/21 lansoprazole 30 mg capsule,delayed release 30 mg PO DAILY 04/11/21 sacubitril 24 mg-valsartan 26 mg tablet (Entresto) 1 tab PO BID #60 tabs 12/03/22 carvedilol 6.25 mg tablet 6.25 mg PO BID heart #180 tabs 07/16/23 atorvastatin 20 mg tablet 20 mg PO QHS 08/15/23 sucralfate 1 gram tablet 1 g PO 4X/DAY PRN upset stomach 08/15/23 Hospital Course Operations None Procedures 2-D Echocardiogram, Cardiac catheterization, EKG and - (CXR) Summary of Care Provided Minutes Spent on Discharge: 38 Hospital Course: Mrs. Jacome is a 77-year-old white female who presented to the emergency department at [facility] on 08/15/2023 after an episode of chest pain. She does have a known history of nonobstructive CAD, chronic left bundle branch block and nonischemic cardiomyopathy. [facility] from a [facility]ology standpoint and her last office visit was 06/11/2023 at which time she was doing well. On Wednesday of this past week the patient had a syncopal episode at home and she felt lightheaded prior to passing out and woke up on the floor. She talk to the cardiology office and they ordered a 24-hour Holter monitor which was unremarkable. It is felt that this was orthostatic as she did appear dry and was given IV fluids with resolution. On the day of presentation she was sitting and watching television when she had a brief episode of left upper chest pain that went into her left shoulder and arm. She reported symptoms lasted about 30 seconds to a minute and then resolved independently of any intervention. She denied any pain since that point in time, shortness of breath, nausea or vomiting, and diaphoresis. Vital signs on presentation showed a temperature of 97.9, heart rate 76, respiratory 15, blood pressure is 149/99, pulse ox was 98% on room air. Her CBC was overtly unremarkable. D-dimer was unremarkable at 0.31. Her chemistry panel was unremarkable other than mild hyperglycemia at 107. Her initial troponin was 68 with a repeat of 105 and therefore request for admission was made. She was admitted to telemetry and evaluated by cardiology. Cardiac catheterization versus stress test was discussed and family and cardiology decided to proceed with cardiac catheterization which was performed on 08/16/2023 and demonstrated mild nonobstructive coronary artery disease with an LVEF of 55% and no significant aortic stenosis or mitral regurgitation. Ongoing medical treatment as previously prescribed was recommended to be continued. Her echocardiogram showed a normal LV size with an EF of 50% and stage I diastolic dysfunction with septal motion consistent with a bundle branch block. Per discussion with cardiology they felt she was stable for discharge on current medication and recommended outpatient follow-up with cardiology in the next 4 weeks. Appointment was made for her prior to discharge and I have asked her to follow-up with her primary care physician within the next month. Discharge diagnoses: Chest pain-resolved Troponin elevation Syncope secondary to orthostatic hypotension Nonobstructive coronary artery disease History of nonischemic cardiomyopathy Hyperlipidemia Hypertension Seasonal allergies Depression GERD Hypothyroidism COPD History of tobacco abuse Physical Exam Const alert, oriented x3, no apparent distress, average body habitus, no limitations, healthy appearing and well nourished Constitutional Narrative: Older, white female, sitting up in bed, appears comfortable, nontoxic, daughter at bedside General Appearance: cooperative, comfortable, well kempt and well developed Orientation / Consciousness: awake, oriented to person, oriented to place and oriented to time Exam Limitations: no limitations HEENT normocephalic, head/scalp atraumatic, hearing grossly normal bilaterally and moist oral mucous membranes Neck no lymphadenopathy and supple Neck Narrative: Trachea midline Resp normal respiratory effort, no retractions, no use of accessory muscles and clear to auscultation bilaterally Auscultation: Negative for rales, rhonchi or wheezes Cardio regular rate, regular rhythm, S1 normal heart sound, S2 normal heart sound, no murmurs, no rub, no gallops and no clicks GI normal to inspection, nondistended, normoactive bowel sounds, soft to palpation and non-tender Extremity no clubbing, cyanosis or edema Extremity Narrative: Right wrist with compression device in place post catheterization, no swelling noted, cap refill is good and hand despite compression, no ecchymosis Skin no rashes or lesions noted, no wounds and no jaundice Neuro oriented x3, moves all extremities and no focal motor deficits Sensorium / Orientation: awake, alert, oriented to person, oriented to place and oriented to time Speech: speech normal Psych affect normal Psych Narrative: Eye contact is good and patient interacts appropriately Weight / BMI Weight Weight: 67.404 kg Body Mass Index (BMI) 24.0 ABG / Lab / Microbiology Data 08/16/23 05:13 08/16/23 05:13 Laboratory: Laboratory Results - last 24 hr 08/16/23 05:13: WBC 6.0, RBC 3.91 L, Hgb 12.0, Hct 35.9 L, MCV 91.8, MCH 30.7, MCHC 33.4, RDW Std Deviation 44.5 H, RDW Coeff of Susan 13.3, Plt Count 209, MPV 10.8, Immature Gran % (Auto) 0.200, Neut % (Auto) 48.8, Lymph % (Auto) 37.7, Duchesne % (Auto) 9.3, Eos % (Auto) 2.8, Baso % (Auto) 1.2 H, Absolute Neuts (auto) 2.9, Absolute Lymphs (auto) 2.27, Nucleated RBC % 0, Sodium 141, Potassium 4.0, Chloride 109 H, Carbon Dioxide 25.0, Anion Gap 7, BUN 18, Creatinine 0.83, Estim Creat Clear Calc 54.82, Est GFR (MDRD) Af Amer 86, Est GFR (MDRD) Non-Af 71, BUN/Creatinine Ratio 21.6 H, Glucose 86, Calcium 9.2 Radiography Diagnostic Testing: Radiology Impression Echocardiogram 08/15/23 04:15 Interpretation Summary Normal LV size. The left ventricular ejection fraction is 50 %. Stage 1 diastolic dysfunction. Septal motion consistent with bundle branch block. Ordering Physician: Ulises Rajan Referring Physician: Jessica Forrest M.D. Performed By: Ana Mueller RDCS D/C Instructions Discharge Diet: Low fat / Low cholesterol Discharge Activity: Return to Normal Activity Meaningful Use Info Meaningful Use Meaningful Use Diagnoses (Choose all that apply): None applicable Ischemic Stroke Statin Dosing Therapy Reference: STATIN DOSE THERAPY REFERENCE: * Patients > 75 years receive moderate or high dose statin therapy. * Patients 75 years or YOUNGER should receive HIGH intensity statin dose unless contraindicated. You will be required to document reason for non-treatment if statin daily dose does not meet guidelines. HIGH DOSE STATIN THERAPY DAILY Atorvastatin > than or = to 40 mg Rosuvastatin > than or = to 20 mg Amlodipine + Atorvastatin > than or = to 2.5/40 mg Ezetimibe + Simvastatin 10/80 mg Simvastatin 80mg Discharge Plan Admission Admit Date/Time: 08/15/23 03:28 Primary Reason for Your Visit: Chest Pain Attending Provider: Radha Fink Primary Care Provider: Jessica Forrest Consulting Providers: Leona Hines BELT SANDER; Kristin Jackson; Ulises Rajan; Danyelle Rose Discharge Orders/Prescriptions Prescriptions: Continued fluticasone propionate [Flonase Allergy Relief] 50 mcg/actuation spray,suspension 1 spray INTRANASAL QDAY PRN (Reason: Nasal Congestion) levothyroxine [Synthroid] 50 mcg tablet 50 mcg PO QDAY fluoxetine 20 mg capsule 20 mg PO QDAY cholecalciferol (vitamin D3) 2,000 unit capsule 2,000 unit PO QDAY Patient Comments: Pt states only takes on MWF ipratropium bromide 0.03 % spray,non-aerosol 2 spray INTRANASAL BID-TID PRN (Reason: allergies) Rx Instructions: administer into each nostril lansoprazole 30 mg capsule,delayed release(DR/EC) 30 mg PO DAILY estradiol 0.25 mg/0.25 gram (0.1 %) gel in packet 1 packet transdermal QWEEK fexofenadine [Dai Allergy] 180 mg tablet 180 mg PO DAILY PRN (Reason: allergies) multivitamin Tablet 1 tab PO DAILY albuterol sulfate 90 mcg/actuation HFA aerosol inhaler 1 puff INHALATION DAILY PRN (Reason: Wheezing) sucralfate 1 gram tablet 1 g PO 4X/DAY PRN (Reason: upset stomach) atorvastatin 20 mg tablet 20 mg PO QHS Entresto 24-26 mg tablet 1 tab PO BID Qty: 60 1RF carvedilol 6.25 mg tablet 6.25 mg PO BID Qty: 180 3RF Rx Instructions: must administer with a meal/food Referrals / Follow Up: Jessica Forrest MD [Primary Care Provider] - Within 1 Month Disposition Disposition (needs filled in before D/C Order can be placed): Home, Self Care Charges/Coding Visit Charges Inpatient E&M: 25442 Disch Hosp >30min
--- NOTE | 2023-08-16 13:11 | PHA.DC.MR.R ---
Pharmacy [place] Med Reconciliation Pharmacy Service has performed discharge medication reconciliation for this patient. The patient's discharge medication list was reviewed for discrepancies and discrepancies were resolved. Medications at Discharge Home Medications cholecalciferol (vitamin D3) 50 mcg (2,000 unit) capsule 2,000 unit PO QDAY supplement 04/14/17 fluoxetine 20 mg capsule 20 mg PO QDAY 04/14/17 fluticasone propionate 50 mcg/actuation nasal spray,suspension (Flonase Allergy Relief) 1 spray intranasal QDAY PRN Nasal Congestion 04/15/17 levothyroxine 50 mcg tablet (Synthroid) 50 mcg PO QDAY 04/15/17 ipratropium bromide 21 mcg (0.03 %) nasal spray 2 spray intranasal BID-TID PRN allergies 04/12/20 multivitamin 1 tab PO DAILY 01/24/21 albuterol sulfate 90 mcg/actuation aerosol inhaler 1 puff inhalation DAILY PRN Wheezing 04/11/21 estradiol 0.25 mg/0.25 gram (0.1 %) transdermal gel packet 1 packet transdermal QWEEK 04/11/21 fexofenadine 180 mg tablet (Dai Allergy) 180 mg PO DAILY PRN allergies 04/11/21 lansoprazole 30 mg capsule,delayed release 30 mg PO DAILY 04/11/21 sacubitril 24 mg-valsartan 26 mg tablet (Entresto) 1 tab PO BID #60 tabs 12/03/22 carvedilol 6.25 mg tablet 6.25 mg PO BID heart #180 tabs 07/16/23 atorvastatin 20 mg tablet 20 mg PO QHS 08/15/23 sucralfate 1 gram tablet 1 g PO 4X/DAY PRN upset stomach 08/15/23
--- NOTE | 2023-08-16 13:59 | CASEMGMT ---
RN CM NOTE: Pt being discharged home. RN CM to room. Introduced self and role. Pt denies having any discharge needs/concerns. Atilio TROYN RN CM
[2023-08-16] MEDS: 0.9% Normal Saline (1000mL) 1,000 ML 999 ML IV ×2 (15:00→16:36)
--- NOTE | 2023-08-16 16:11 | CASEMGMT ---
Social Work Chart reviewed and unable to find Advance Directives on file with [facility]. Met with patient and daughter Sheila in room to update. Sheila reports will go home and bring forms back. Patient reports may go home today, looking forward to this and to feel safe with home going. Sheila to unit with both the [facility] and the Living Will, which are copied and placed into paper chart for scanning. [facility] are identified in this order: [place], [place], [place], No other needs requested or indicated. -AYESHA Metcalf
== END 2023-08-16 13:05 | disposition home or self-care (01) ==
LOC: ED 08-15 03:17 → PCU 08-15 03:50
PROVIDERS: Student in an Organized Health Care Education/Training Program; Admitting Provider Hospitalist; Emergency Provider Emergency Medicine; PCP Internal Medicine; Visit Provider Internal Medicine
DX: R07.89 Other chest pain (principal); J44.9 Chronic obstructive pulmonary disease, unspecified; I42.8 Other cardiomyopathies; I25.10 Atherosclerotic heart disease of native coronary artery without angina pectoris; I10 Essential (primary) hypertension; F32.A Depression, unspecified; Z87.891 Personal history of nicotine dependence; E03.9 Hypothyroidism, unspecified; J30.2 Other seasonal allergic rhinitis; K21.9 Gastro-esophageal reflux disease without esophagitis; I44.7 Left bundle-branch block, unspecified; E78.5 Hyperlipidemia, unspecified; R73.9 Hyperglycemia, unspecified; I95.1 Orthostatic hypotension; Z79.899 Other long term (current) drug therapy; Z79.890 Hormone replacement therapy
CPT/HCPCS: 36415; 71045; 80048; 84484; 85025; 85027; 85379; 93005; 93306; 93458; 94668; 96360; 96361; 96372; 99152; 99153; 99221; 99285; J7030; J7040; Q9967; A4216; C1769; C1894; G0378

== ENCOUNTER → 2023-08-24 | Outpatient (CLI) | payer MEDICARE, SELFPAY ==
--- NOTE | 2023-08-24 13:49 | CDU_ITS ---
Reason For Study: Dizziness Rt. Velocities/BP Lt. Velocities/BP Prox CCA 74.3/23.7 cm/sec. Prox CCA 93.0/21.5 cm/sec. Mid CCA 62.9/19.5 cm/sec. Mid CCA 65.5/21.5 cm/sec. Dist CCA 68.6/18.5 cm/sec. Dist CCA 79.8/30.3 cm/sec. Prox ICA 61.8/17.6 cm/sec. Prox ICA 66.6/24.8 cm/sec. Mid ICA 86.3/27.4 cm/sec. Mid ICA 88.6/33.6 cm/sec. Dist ICA 99.2/33.4 cm/sec. Dist ICA 121.6/39.5 cm/sec. Rt. ICA/CCA = 1.6. Lt. ICA/CCA = 1.9. Prox ECA 71.1/12.6 cm/sec. Prox ECA 80.0/11.7 cm/sec. Rt. Vert. 49.0/20.4 cm/sec. Lt. Vert. 55.6/19.3 cm/sec. Right Extracranial There is homogeneous, smooth atherosclerotic plaque noted in the right common carotid artery. There is intimal thickening but no significant atherosclerotic plaque noted in the right internal carotid artery. There is intimal thickening but no significant atherosclerotic plaque noted in the right external carotid artery. Antegrade flow is noted in the right vertebral artery. Left Extracranial There is homogeneous, smooth atherosclerotic plaque noted in the left common carotid artery. There is intimal thickening but no significant atherosclerotic plaque noted in the left internal carotid artery. There is intimal thickening but no significant atherosclerotic plaque noted in the left external carotid artery. Antegrade flow is noted in the left vertebral artery. Procedure Carotid Duplex 07643. This is a Carotid Duplex examination using B-mode, color flow and specral Doppler. The exam was diagnostic. Exam performed in department. VL/Carotid Duplex Ultrasound Interpretation Summary Intimal thickening bilateral proximal internal carotid arteries with less than 50% stenosis Less than 50% stenosis bilateral external carotid arteries Patent and antegrade vertebral arteries bilaterally Ordering Physician: Leona Hnies Referring Physician: Jessica Forrest Performed By: Wero Samson RVT
== END | disposition home or self-care (01) ==
LOC: CVS 13:47
PROVIDERS: PCP Internal Medicine; Referring Provider Nurse Practitioner Gerontology; Visit Provider Nurse Practitioner Gerontology
DX: R42 Dizziness and giddiness (principal); R55 Syncope and collapse
CPT/HCPCS: 93880

== ENCOUNTER → 2023-10-21 | Outpatient (CLI) | payer MEDICARE, SELFPAY ==
--- NOTE | 2023-10-21 11:32 | RAD_ITS ---
STUDY: X-RAY - THORACIC SPINE REASON FOR EXAM: Female, 77 years old. Back pain. TECHNIQUE: 2 view(s) of the thoracic spine were obtained on 3 images. COMPARISON: None. FINDINGS: Osteopenia. Slight increased kyphosis. Minimal thoracolumbar scoliosis. Diffuse mild intervertebral disc space narrowing with small osteophytes. Epidural stimulator terminating at the upper body of T8. Vascular calcification. Moderate-sized hiatal hernia. RAD/Thoracic Spine 3 Views IMPRESSION: Osteopenia with diffuse mild thoracic spondylosis. Moderate-sized hiatal hernia. Electronically Signed: Sergo Mckeon MD at 15:28 EDT ,
== END | disposition home or self-care (01) ==
LOC: RAD 11:21
PROVIDERS: PCP Internal Medicine; Referring Provider Clinical Nurse Specialist Adult Health; Visit Provider Clinical Nurse Specialist Adult Health
DX: M54.9 Dorsalgia, unspecified (principal)
CPT/HCPCS: 72072

== ENCOUNTER → 2024-11-09 | Outpatient (CLI) | payer MEDICARE, SELFPAY ==
--- NOTE | 2024-11-09 10:23 | MRI_ITS ---
PROCEDURE: UPPER EXT JOINT ONLY(ROUTINE) 11/09/2024 REASON FOR EXAM: IMPRINGEMENT SYNDROME OF RIGHT SHOULDER TECHNIQUE: Procedure Code: MRIUEJ Modality: MR Procedure: UPPER EXT JOINT ONLY(ROUTINE) Multiplanar and multisequence images were obtained without IV contrast administration. COMPARISON: None FINDINGS: Rotator Cuff: Supraspinatus tendon: Mild tendinosis with intrasubstance and undersurface tear. Probable pinhole tear at the mid supraspinatus tendon. No full-thickness tear or tendon retraction. Infraspinatus tendon: Mild tendinosis. No full-thickness tear.. Teres minor tendon: Intact, with normal signal intensity and morphology. No tears or tendinosis. Subscapularis tendon: Intact, with normal signal intensity and morphology. No tears or tendinosis. Biceps Tendon: Long head of the biceps tendon: Intact, within the bicipital groove. Normal signal intensity and morphology. Short head of the biceps tendon: Intact, normal appearance. Glenohumeral Joint: Labrum: No detachment. Small SLAP tear. Glenohumeral ligaments: Intact, normal appearance. Articular cartilage: Mild degenerative changes of the glenohumeral joint with loss of cartilage primarily affect in the humeral head. Joint effusion: No significant joint effusion. Acromioclavicular Joint: Advanced degenerative changes present through the acromioclavicular joint with fluid in the joint. Bone and Soft Tissues: Bone marrow: Normal bone marrow signal intensity. No bone marrow edema or lesions. Muscles: Normal muscle signal intensity and morphology. Soft tissues: Small amount of fluid in the subacromial subdeltoid bursa. Rotator Interval: Rotator interval: Normal appearance. No abnormal widening or soft tissue abnormalities. Neurovascular Structures: Unremarkable in appearance. MRI/Upper Ext Joint Only(Routine) IMPRESSION: Possible pinhole tear of the mid supraspinatus tendon with fluid in the subacro mial subdeltoid bursa. Moderate AC joint arthropathy with slight mass effect on the myotendinous junct ion of the supraspinatus. Moderate degenerative changes of the glenohumeral joint with possible mass effe ct on the myotendinous junction of the supraspinatus. Correlate for symptomatology of impingement.. Reading Location: [facility]
== END | disposition home or self-care (01) ==
PROVIDERS: PCP Internal Medicine
DX: S43.491D Other sprain of right shoulder joint, subsequent encounter (principal); M75.41 Impingement syndrome of right shoulder
CPT/HCPCS: 73221